=== PATIENT | male | born 1970 | race Caucasian/White ===

== ENCOUNTER → 2016-07-23 | Outpatient (CLI) | payer MEDICARE, OTHER ==
[2016-07-23 10:29] LABS: ALT 18 U/L (21-72); AST 9 U/L (17-59); Alkaline Phosphatase 79 U/L (38-126); Anion Gap 9 mmol/L; Blood Urea Nitrogen 10 mg/dL (9-20); Calcium 8.7 mg/dL (8.4-10.2); Carbon Dioxide 29 mmol/L (22-30); Chloride 106 mmol/L (98-107); Cholesterol 125 mg/dL (<200); Glucose 84 mg/dL (74-99); HDL Cholesterol 32 mg/dL (40-60); Non-African American GFR(MDRD) >60 (>60 ml/min/1.73 sqM); Potassium 4.4 mmol/L (3.5-5.1); Sodium 144 mmol/L (137-145); Total Bilirubin 0.4 mg/dL (0.2-1.3); Total Protein 6.6 g/dL (6.3-8.2); Triglycerides 205 mg/dL (<150)
== END | disposition home or self-care (01) ==
LOC: LABWHC1 09:37
PROVIDERS: ATTEND Internal Medicine Interventional Cardiology
DX: E78.2 Mixed hyperlipidemia (principal)
CPT/HCPCS: 36415; 80053; 80061

== ENCOUNTER 2016-10-04 20:41 | Emergency (ER) | payer MEDICARE, OTHER ==
[2016-10-04] MEDS ORDERED: IBUPROFEN 600 MG TAB PO STA (22:20)
[2016-10-04] MEDS ORDERED: SODIUM CHLORIDE 0.9% 1,000 ML IV STA (22:20)
[2016-10-04] MEDS ORDERED: ACETAMINOPHEN TAB 500 MG TAB PO STA (22:20)
--- NOTE | 2016-10-04 22:22 | ED ---
General Adult HPI - General Chief complaint: Fever Stated complaint: BODY ACHES Time Seen by Provider: 10/04/16 22:14 Source: patient, RN notes reviewed Mode of arrival: wheelchair Limitations: no limitations - History of Present Illness Initial comments: Patient 46-year-old male who presents emergency room today with chief complaint of increased bodyaches and fever over the last 4 days. Patient does admit to symptoms starting with bodyaches. States that he's felt dizzy lightheaded. States appetites been decreased. States his FAMILY doctor started on antibiotics. States she's not felt any better. States not had any Tylenol Motrin. Patient denies cough congestion. Denies any sputum production. Does admit to some rhinorrhea. Denies any other complaints currently. Review of systems - Related Data Home Medications Medication Instructions Recorded Confirmed Divalproex [Depakote] 500 mg PO BID 01/22/14 05/10/16 Hydrocodone/Acetaminophen 1 tab PO BID PRN 05/10/16 05/10/16 [Hydrocodon-Acetaminophn 10-325] Morphine Sulfate [Morphine Sulfate 30 mg PO BID 05/10/16 05/10/16 ER] Previous Rx's Medication Instructions Recorded Aspirin 325 mg PO DAILY #30 tab 05/13/16 Atorvastatin [Lipitor] 80 mg PO HS #30 tab 05/13/16 Lisinopril [Zestril] 10 mg PO BID #60 tab 05/13/16 Metoprolol Tartrate [Lopressor] 25 mg PO BID #60 tab 05/13/16 Nicotine 21Mg/24Hr Patch [Habitrol] 1 patch TRANSDERM DAILY #30 patch 05/13/16 Nitroglycerin Sl Tabs [Nitrostat] 0.4 mg SUBLINGUAL Q5M PRN #25 tab 05/13/16 Prasugrel [Effient] 10 mg PO DAILY #30 tab 05/13/16 Allergies Allergy/AdvReac Type Severity Reaction Status Date / Time cephalexin monohydrate AdvReac Vomiting Verified 05/10/16 09:01 [From Keflex] Review of Systems ROS Statement: Those systems with pertinent positive or pertinent negative responses have been documented in the HPI. ROS Other: All systems not noted in ROS Statement are negative. Past Medical History Past Medical History: Hypertension, Myocardial Infarction ([place]) Additional Past Medical History / Comment(s): chronic back pain Last Myocardial Infarction Date:: 05/10/16 History of Any Multi-Drug Resistant Organisms: MRSA Date of last positivie culture/infection: 2011 MDRO Source:: eye Additional Past Surgical History / Comment(s): back surgery Past Anesthesia/Blood Transfusion Reactions: No Reported Reaction Past Psychological History: Bipolar Smoking Status: Current every day smoker Past Alcohol Use History: None Reported Past Drug Use History: None Reported - Past Family History Mother Family Medical History: Hypertension Brother(s) Family Medical History: Myocardial Infarction ([place]) Additional Family Medical History / Comment(s): from [place] at age 38 General Exam - General Exam Comments Initial Comments: General: The patient is awake and alert, in no distress, and does not appear acutely ill. Generalized malaise Eye: Pupils are equal, round and reactive to light, extra-ocular movements are intact. No nystagmus. There is normal conjunctiva bilaterally. No signs of icterus. Ears, nose, mouth and throat: There are moist mucous membranes and no oral lesions. Neck: The neck is supple, there is no tenderness or JVD. Cardiovascular: There is a regular rate and rhythm. No murmur, rub or gallop is appreciated. Respiratory: Lungs are clear to auscultation, respirations are non-labored, breath sounds are equal. No wheezes, stridor, rales, or rhonchi. Gastrointestinal: Soft, non-distended, non-tender abdomen without masses or organomegaly noted. There is no rebound or guarding present. No CVA tenderness. Bowel sounds are unremarkable. Musculoskeletal: Normal ROM, no tenderness. Strength 5/5. Sensation intact. Pulses equal bilaterally 2+. Neurological: A&O x 3. CN II-XII intact, There are no obvious motor or sensory deficits. Coordination appears grossly intact. Speech is normal. Skin: Skin is warm and dry and no rashes or lesions are noted. Psychiatric: Cooperative, appropriate mood & affect, normal judgment. Limitations: no limitations Course Vital Signs 10/04/16 21:04 Temperature 102.1 F H Pulse Rate 113 H Respiratory 18 Rate Blood Pressure 120/76 O2 Sat by Pulse 97 Oximetry Medical Decision Making - Medical Decision Making Patient reexamined at this time shows no signs of distress. States feeling Better after Tylenol/ibuprofen here the emergency room. Patient's chest x-ray reviewed no evidence of pneumonia. Patient informed to be positive. Patient advised to continue Tylenol Motrin at home. Advised to follow-up the family doctor over the next 2 days or return here to the emergency room if any symptoms increase worsen. - Lab Data Result diagrams: 10/04/16 23:08 10/04/16 23:08 Lab Results 10/04/16 10/04/16 10/04/16 Range/Units 22:42 23:08 23:08 WBC 7.1 (3.8-10.6) k/uL RBC 4.88 (4.30-5.90) m/uL Hgb 15.7 (13.0-17.5) gm/dL Hct 46.1 (39.0-53.0) % MCV 94.6 (80.0-100.0) fL MCH 32.3 (25.0-35.0) pg MCHC 34.1 (31.0-37.0) g/dL RDW 13.8 (11.5-15.5) % Plt Count 129 L (150-450) k/uL Neutrophils % 84 % Lymphocytes % 11 % Monocytes % 2 % Eosinophils % 0 % Basophils % 0 % Neutrophils # 6.0 (1.3-7.7) k/uL Lymphocytes # 0.8 L (1.0-4.8) k/uL Monocytes # 0.2 (0-1.0) k/uL Eosinophils # 0.0 (0-0.7) k/uL Basophils # 0.0 (0-0.2) k/uL Sodium 135 L (137-145) mmol/L Potassium 4.3 (3.5-5.1) mmol/L Chloride 99 (98-107) mmol/L Carbon Dioxide 27 (22-30) mmol/L Anion Gap 9 mmol/L BUN 15 (9-20) mg/dL Creatinine 0.80 (0.66-1.25) mg/dL Est GFR (MDRD) Af Amer >60 (>60 ml/min/1.73 sqM) Est GFR (MDRD) Non-Af >60 (>60 ml/min/1.73 sqM) Glucose 98 (74-99) mg/dL Calcium 8.4 (8.4-10.2) mg/dL Total Bilirubin 0.9 (0.2-1.3) mg/dL AST 33 (17-59) U/L ALT 30 (21-72) U/L Alkaline Phosphatase 61 (38-126) U/L Total Protein 6.5 (6.3-8.2) g/dL Albumin 3.2 L (3.5-5.0) g/dL Influenza Type A RNA Not Detected (Not Detectd) Influenza Type B (PCR) Detected H (Not Detectd) Disposition Clinical Impression: Influenza B Disposition: HOME SELF-CARE Condition: Good Instructions: Influenza (ED) Additional Instructions: Please continue Tylenol/ibuprofen for fever and body aches. Please increase oral fluids as discussed. Please follow-up family doctor over the next 2 days or return here to the emergency room if any symptoms increase or worsen or for any other concerns. Time of Disposition: 00:03
[2016-10-04 23:17] LABS: Basophils % (A) 0 %; Eosinophils % (A) 0 %; HCT 46.1 % (39.0-53.0); HDW 2.69; HGB 15.7 gm/dL (13.0-17.5); Luc # (Auto) 0.11; Luc % (Auto) 2; Lymphocytes # (A) 0.8 k/uL (1.0-4.8); Lymphocytes % (A) 11 %; MCH 32.3 pg (25.0-35.0); MCHC 34.1 g/dL (31.0-37.0); MCV 94.6 fL (80.0-100.0); Mean Platelet Volume 8.7; Monocytes # (A) 0.2 k/uL (0-1.0); Monocytes % (A) 2 %; Neutrophils % (A) 84 %; RBC 4.88 m/uL (4.30-5.90); RDW 13.8 % (11.5-15.5); WBC 7.1 k/uL (3.8-10.6); WBC (Perox) 7.48
[2016-10-04 23:26] LABS: ALT 30 U/L (21-72); AST 33 U/L (17-59); Alkaline Phosphatase 61 U/L (38-126); Anion Gap 9 mmol/L; Blood Urea Nitrogen 15 mg/dL (9-20); Calcium 8.4 mg/dL (8.4-10.2); Carbon Dioxide 27 mmol/L (22-30); Chloride 99 mmol/L (98-107); Glucose 98 mg/dL (74-99); Non-African American GFR(MDRD) >60 (>60 ml/min/1.73 sqM); Potassium 4.3 mmol/L (3.5-5.1); Sodium 135 mmol/L (137-145); Total Bilirubin 0.9 mg/dL (0.2-1.3); Total Protein 6.5 g/dL (6.3-8.2)
--- NOTE | 2016-10-04 23:44 | XR ---
EXAM: XR Chest, 2 Views. CLINICAL HISTORY: Reason: fever TECHNIQUE: Frontal and lateral views of the chest. COMPARISON: None FINDINGS: Hardware: None. Lungs/pleura: Density projected at the midline posterior upper thorax. Streaky opacities at the left lung base likely represent atelectasis. No focal consolidation. No pleural effusion or pneumothorax. Heart/mediastinum: Normal. No cardiomegaly. Soft tissues: Unremarkable. Bones: Degenerative changes of the acromioclavicular joints No acute fracture. Upper abdomen: Tiny densities projected over the medial left clavicle. IMPRESSION: 1. Mild left basilar atelectasis. No focal consolidation. 2. Density projected at the midline in the upper posterior thorax. Recommend correlation with retained metallic foreign body versus swallowed tooth. Other smaller hyperdensities projected over the medial left clavicle, nonspecific.
[2016-10-05 00:09] VITALS: BP 109/73; PULSE 117; RESP 16; TEMP 98.9
== END 2016-10-05 00:13 | disposition home or self-care (01) ==
LOC: EC 20:41
DX: J10.1 Influenza due to other identified influenza virus with other respiratory manifestations (principal); G89.29 Other chronic pain; F31.9 Bipolar disorder, unspecified; F17.200 Nicotine dependence, unspecified, uncomplicated; Z79.891 Long term (current) use of opiate analgesic; Z79.899 Other long term (current) drug therapy; Z88.1 Allergy status to other antibiotic agents; Z86.14 Personal history of Methicillin resistant Staphylococcus aureus infection
CPT/HCPCS: 36415; 71020; 80053; 85025; 87040; 87077; 87186; 87502; 96360; 99283

== ENCOUNTER 2018-12-07 13:00 | Emergency (ER) | payer MEDICARE, OTHER ==
[2018-12-07 13:06] VITALS: RESP 18
--- NOTE | 2018-12-07 13:32 | ED ---
General Adult HPI <Ted Banerjee - Last Filed: 12/07/18 14:09> - General Source: patient, RN notes reviewed Mode of arrival: ambulatory Limitations: no limitations <Levar Ward - Last Filed: 12/08/18 10:07> - General Chief complaint: Fall Stated complaint: fell down steps Time Seen by Provider: 12/07/18 13:15 - History of Present Illness Initial comments: 48-year-old male presents to the emergency department for a chief complaint of fall. Patient states that approximately an hour before arrival he accidentally tripped and fell down about 12 stairs. Does admit that he hit the left side of his head. No loss of consciousness. No blood thinners. No significant headache. Patients main complaint is right knee pain. States he cannot bear weight on it or move it. Also complaining of low back pain. States he has a "colleen" in his back. Denies any upper back or chest pain. Denies any abdominal pain. Patient has no other complaints at this time including shortness of breath, chest pain, abdominal pain, nausea or vomiting, headache, or visual changes. (Levar Ward) - Related Data Home Medications Medication Instructions Recorded Confirmed Divalproex [Depakote] 500 mg PO BID 01/22/14 12/07/18 Morphine Sulfate [Morphine Sulfate 30 mg PO BID 05/10/16 12/07/18 ER] Carvedilol [Coreg] 3.125 mg PO DAILY 12/07/18 12/07/18 Citalopram Hydrobromide [CeleXA] 10 mg PO DAILY 12/07/18 12/07/18 HYDROcodone/APAP 10-325MG [[place] 1 tab PO TID 12/07/18 12/07/18 10-325] Ondansetron HCl [Zofran] 4 mg PO Q4H PRN 12/07/18 12/07/18 Pregabalin [Lyrica] 75 mg PO BID 12/07/18 12/07/18 amLODIPine [Norvasc] 5 mg PO DAILY 12/07/18 12/07/18 Previous Rx's Medication Instructions Recorded Aspirin 325 mg PO DAILY #30 tab 05/13/16 Atorvastatin [Lipitor] 80 mg PO HS #30 tab 05/13/16 Lisinopril [Zestril] 10 mg PO BID #60 tab 05/13/16 Metoprolol Tartrate [Lopressor] 25 mg PO BID #60 tab 05/13/16 Nitroglycerin Sl Tabs [Nitrostat] 0.4 mg SUBLINGUAL Q5M PRN #25 tab 05/13/16 Prasugrel [Effient] 10 mg PO DAILY #30 tab 05/13/16 Allergies Allergy/AdvReac Type Severity Reaction Status Date / Time cephalexin monohydrate AdvReac Vomiting Verified 12/07/18 13:23 [From Keflex] Review of Systems ROS Other: All systems not noted in ROS Statement are negative. <Ted Banerjee - Last Filed: 12/07/18 14:09> ROS Other: All systems not noted in ROS Statement are negative. <Levar Ward - Last Filed: 12/08/18 10:07> ROS Statement: Those systems with pertinent positive or pertinent negative responses have been documented in the HPI. Past Medical History Past Medical History: Hypertension, Myocardial Infarction ([place]) Additional Past Medical History / Comment(s): chronic back pain Last Myocardial Infarction Date:: 05/10/16 History of Any Multi-Drug Resistant Organisms: MRSA Date of last positivie culture/infection: 2011 MDRO Source:: eye Past Surgical History: Heart Catheterization With Stent Additional Past Surgical History / Comment(s): back surgery Past Anesthesia/Blood Transfusion Reactions: No Reported Reaction Past Psychological History: Bipolar Smoking Status: Current every day smoker Past Alcohol Use History: None Reported Past Drug Use History: Marijuana - Past Family History Mother Family Medical History: Hypertension Brother(s) Family Medical History: Myocardial Infarction ([place]) Additional Family Medical History / Comment(s): from [place] at age 38 <Levar Ward - Last Filed: 12/08/18 10:07> General Exam Limitations: no limitations General appearance: alert, in no apparent distress Head exam: Present: atraumatic, normocephalic, normal inspection Eye exam: Present: normal appearance, PERRL, EOMI. Absent: scleral icterus, conjunctival injection, periorbital swelling, periorbital tenderness ENT exam: Present: normal exam, normal oropharynx, mucous membranes moist, TM's normal bilaterally, normal external ear exam Neck exam: Present: normal inspection, full ROM. Absent: tenderness, meningismus, lymphadenopathy Respiratory exam: Present: normal lung sounds bilaterally. Absent: respiratory distress, wheezes, rales, rhonchi, stridor, chest wall tenderness, other (no ecchymosis) Cardiovascular Exam: Present: regular rate, normal rhythm, normal heart sounds. Absent: systolic murmur, diastolic murmur, rubs, gallop, clicks, other GI/Abdominal exam: Present: soft, normal bowel sounds. Absent: distended, tenderness, guarding, rebound, rigid, other (no ecchymosis) Extremities exam: Present: tenderness (tenderness to the right knee), normal capillary refill (cap refill < 2 seconds, dp pulse 2+), joint swelling (mild superior right knee edema). Absent: full ROM (unable to bend right knee) Back exam: Present: vertebral tenderness (lumbar spine generalized tenderness). Absent: CVA tenderness (R), CVA tenderness (L) Neurological exam: Present: alert, oriented X3, CN II-XII intact, other (GCS 15) Expanded Patient oriented to: Present: person, place, time Speech: Present: fluid speech Cranial nerves: EOM's Intact: Normal, Gag Reflex: Normal, Tongue Deviation: Normal, Nystagmus: Normal Cerebellar function: Finger to Nose: Normal Upper motor neuron: Pronator Drift: Normal Sensory exam: Upper Extremity Light Touch: Normal, Upper Extremity Pin Prick: Normal, Lower Extremity Light Touch: Normal, Lower Extremity Pin Prick: Normal Motor strength exam: RUE: 5, LUE: 5, RLE: 5 (knee pain), LLE: 5 Eye Response: (4) open spontaneously Motor Response: (6) obeys commands Verbal Response: (5) oriented Nga Total: 15 Psychiatric exam: Present: normal affect, normal mood <Levar Ward - Last Filed: 12/08/18 10:07> Course <Ted Banerjee - Last Filed: 12/07/18 14:09> <Levar Ward P - Last Filed: 12/08/18 10:07> Vital Signs 12/07/18 12/07/18 12/07/18 13:03 14:04 14:26 Temperature 98.6 F 99.7 F H 98.9 F Pulse Rate 94 77 73 Respiratory 18 18 18 Rate Blood Pressure 108/68 110/72 107/84 O2 Sat by Pulse 94 L 93 L 98 Oximetry - Reevaluation(s) Reevaluation #1: 12/07/18 14:09 PA supervision: I proceeded [id number] evaluation the patient he did trip and fall down approximately 12 stairs prior to arrival. He denies any overt headache at this time though a CAT scan there was evidence of epidural hematoma on the left with evidence of subarachnoid bleed. Patient will be transferred to [facility] the patient is in agreement with this Dr. Wilson was notified at [facility] and agrees except the patient transfer. This is patient's have other imaging and will be done prior to transfer including pelvis x-ray and right knee as he does have right knee pain. (Ted Banerjee) Reevaluation #2: 12/07/18 14:27 Reevaluated, patient still well appearing, in no neurologic deficits. Alert and oriented 3. Resting comfortably. Head of bed at 30. (Levar Ward) Medical Decision Making - Lab Data Result diagrams: 12/07/18 14:11 12/07/18 14:11 <Levar Ward P - Last Filed: 12/08/18 10:07> - Medical Decision Making 48-year-old male presents for fall down 12 stairs approximately one hour prior to arrival. This was a trip and fall. Patient did hit the left side of his head. Patient also complaining of right knee pain which seems to be his biggest complaint. Patient has some lumbar pain as well. No abdominal pain or upper back pain. No chest pain. Exam does show some edema noted of the right knee with minimal range of motion. Neurovascular status is intact in the right lower extremity. No neurologic deficits. CT brain shows left-sided acute intracranial hemorrhage favoring subarachnoid hemorrhage with extra-axial hemorrhage favoring small to tiny epidural hemorrhage vs subdural. Head was up to 30 degrees, blood pressure stable. Patient alert and oriented at this time. Patient on aspirin, no other blood thinners. X-ray of the right knee shows no acute fracture or dislocation. There is moderate to large joint effusion noted. X-ray of the pelvis shows no acute fracture or dislocation. X-ray of the chest shows new left basilar opacity and slight left hemithorax volume loss. Suspicious for atelectasis and pneumonia. Patient did develop a low-grade temperature of 99.7. Started on Rocephin. Dr Wilson did accept transfer. Patient will be transferred for neuro surgery consult. (Levar Ward) - Lab Data Lab Results 12/07/18 12/07/18 12/07/18 Range/Units 14:11 14:11 14:11 WBC 10.3 (3.8-10.6) k/uL RBC 4.92 (4.30-5.90) m/uL Hgb 15.7 (13.0-17.5) gm/dL Hct 47.3 (39.0-53.0) % MCV 96.2 (80.0-100.0) fL MCH 31.9 (25.0-35.0) pg MCHC 33.2 (31.0-37.0) g/dL RDW 14.2 (11.5-15.5) % Plt Count 169 (150-450) k/uL Neutrophils % 80 % Lymphocytes % 14 % Monocytes % 5 % Eosinophils % 1 % Basophils % 0 % Neutrophils # 8.2 H (1.3-7.7) k/uL Lymphocytes # 1.5 (1.0-4.8) k/uL Monocytes # 0.5 (0-1.0) k/uL Eosinophils # 0.1 (0-0.7) k/uL Basophils # 0.0 (0-0.2) k/uL PT 10.1 (9.0-12.0) sec INR 0.9 (<1.2) APTT 26.7 (22.0-30.0) sec Sodium 137 (137-145) mmol/L Potassium 4.5 (3.5-5.1) mmol/L Chloride 103 (98-107) mmol/L Carbon Dioxide 28 (22-30) mmol/L Anion Gap 6 mmol/L BUN 7 L (9-20) mg/dL Creatinine 0.76 (0.66-1.25) mg/dL Est GFR (CKD-EPI)AfAm >90 (>60 ml/min/1.73 sqM) Est GFR (CKD-EPI)NonAf >90 (>60 ml/min/1.73 sqM) Glucose 116 H (74-99) mg/dL Calcium 8.4 (8.4-10.2) mg/dL Total Bilirubin 0.6 (0.2-1.3) mg/dL AST 16 L (17-59) U/L ALT 8 L (21-72) U/L Alkaline Phosphatase 60 (38-126) U/L Total Protein 6.0 L (6.3-8.2) g/dL Albumin 3.3 L (3.5-5.0) g/dL Disposition <Ted Banerjee - Last Filed: 12/07/18 14:09> Is patient prescribed a controlled substance at d/c from ED?: No Time of Disposition: 14:24 - Out of Hospital Transfer - Req. Specs Out of Hospital Transfer - Requested Specifics: Other Emergency Center ([facility]) <Levar Ward - Last Filed: 12/08/18 10:07> Clinical Impression: Intracranial hemorrhage following injury, Knee pain, Low back pain, Suprapatellar effusion of knee Disposition: OTHER INSTITUTION NOT DEFINED Condition: Serious Referrals: Sha Ocampo MD [Primary Care Provider] - 1-2 days
--- NOTE | 2018-12-07 13:59 | CT ---
EXAMINATION TYPE: CT brain niuknjine rasheed con DATE OF EXAM: 12/07/2018 COMPARISON: NONE HISTORY: Fell down stairs with headache and neck pain. CT DLP: 1344.4 mGycm. Automated Exposure Control for Dose Reduction was Utilized. TECHNIQUE: CT scan of the head and cervical spine are performed without contrast. FINDINGS: There is small left frontal temporal extra-axial fluid collection measuring up to 4 mm in thickness axial image 27. There is small area of adjacent subarachnoid hemorrhage axial image 29 sharonda ling sulcus. Adjacent calvarium is intact. No midline shift is seen. The ventricles and sulci are wit hin normal limits in size. The globes are intact and the visualized sinuses are clear. Soft tissue d ensity bilateral external auditory canals canals, left greater than right, is felt to reflect cerumen . Cervical spine is visualized in its entirety from C1 through upper thoracic levels and demonstrates s atisfactory alignment without evidence of acute fracture or dislocation. Prevertebral soft tissue ap pears within normal limits. The C1-C2 articulation is within normal limits on the coronal images. V ertebral body heights and disc space heights are maintained. Posterior spur disc complex effaces ante rior thecal sac at C5-C6 level on sagittal image 42 and axial image 54. Axial images show uncovertebr al facet degenerative changes bilaterally at C3-C4 level causing mild to moderate bilateral neural fo raminal narrowing. Visualized lung apices are clear IMPRESSION: 1. There is no acute fracture or dislocation evident in the cervical spine. 2. Left-sided acute intracranial hemorrhage favoring subarachnoid hemorrhage with a extra-axial hemor rhage favoring small to tiny epidural hemorrhage given history of trauma over subdural hemorrhage. No midline shift. No hydrocephalus. Critical results of acute intracranial hemorrhage communicated to ordering emergency care physician charla ssistant via telephone at time of dictation.
--- NOTE | 2018-12-07 14:00 | XR ---
EXAMINATION TYPE: XR pelvis AP view DATE OF EXAM: 12/07/2018 CLINICAL HISTORY: Fall injury with pelvic pain TECHNIQUE: A single AP view of the pelvis is obtained. COMPARISON: None. FINDINGS: Exam slightly suboptimal as performed in outlet view. Lucency from rectal fecal material o verlies pubic symphysis. There is no acute fracture/dislocation clearly evident in the pelvis. The h ip and sacroiliac joints appear symmetric and unremarkable. There is partial visualization of surgic al change in the lumbar spine and stimulator device overlying the left lower quadrant . IMPRESSION: There is no acute fracture or dislocation in the pelvis.
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
--- NOTE | 2018-12-07 14:01 | XR ---
EXAMINATION TYPE: XR knee 4V RT DATE OF EXAM: 12/07/2018 CLINICAL HISTORY: Fall injury with pain. TECHNIQUE: Three views of the right knee are obtained. A fourth sunrise view was acquired. COMPARISON: None. FINDINGS: There is no acute fracture/dislocation evident in right knee. Mild tricompartment joint sp dylan loss is seen. Increased density suprapatellar bursa is consistent with moderate to large joint ef fusion. Patellar articulation is within normal limits on sunrise view. IMPRESSION: There is no acute fracture or dislocation in the right knee.
--- NOTE | 2018-12-07 14:03 | XR ---
EXAMINATION TYPE: XR lumbar spine 2 or 3V DATE OF EXAM: 12/07/2018 CLINICAL HISTORY: Pain after falling down 12 steps today TECHNIQUE: A double and lateral images of the lumbar spine are obtained. COMPARISON: 08/27/2012 FINDINGS: There is chronic malalignment with grade 1 anterolisthesis of L3 on L4, less pronounced demar n on the prior exam and of L5 on S1, similar to the prior exam. No new vertebral body height loss is seen. Postsurgical changes present from L4 through S1. Nerve root stimulator is noted. Multilevel fac et arthropathy is seen. Heterotopic ossification surrounds the postsurgical sites with surgical absen ce of the lower lumbar spine posterior elements. Visualized portions of the surrounding ribs are inta ct. IMPRESSION: Postsurgical and degenerative changes of the lumbar spine. No new vertebral body height l oss. Chronic malalignment.
[2018-12-07] MEDS ORDERED: LEVOFLOXACIN 500MG-D5W PMX 500 MG in DEXTROSE/WATER 1 100ML.BAG IVPB STA (14:17)
[2018-12-07] MEDS ORDERED: cefTRIAXone IN SWFI 1,000 MG/10 ML SYRINGE IVP STA (14:20)
[2018-12-07 14:29] VITALS: BP 107/84; PULSE 73; TEMP 98.9
[2018-12-07 14:39] LABS: Basophils % (A) 0 %; Eosinophils # (A) 0.1 k/uL (0-0.7); Eosinophils % (A) 1 %; HCT 47.3 % (39.0-53.0); HGB 15.7 gm/dL (13.0-17.5); Lymphocytes # (A) 1.5 k/uL (1.0-4.8); Lymphocytes % (A) 14 %; MCH 31.9 pg (25.0-35.0); MCHC 33.2 g/dL (31.0-37.0); MCV 96.2 fL (80.0-100.0); Mean Platelet Volume 8.1; Monocytes # (A) 0.5 k/uL (0-1.0); Monocytes % (A) 5 %; Neutrophils # (A) 8.2 k/uL (1.3-7.7); Neutrophils % (A) 80 %; Platelet Count 169 k/uL (150-450); RBC 4.92 m/uL (4.30-5.90); RDW 14.2 % (11.5-15.5); WBC 10.3 k/uL (3.8-10.6)
[2018-12-07 14:46] LABS: INR 0.9 (<1.2); Partial Thromboplastin Time 26.7 sec (22.0-30.0); Prothrombin Time 10.1 sec (9.0-12.0)
[2018-12-07 14:55] LABS: ALT 8 U/L (21-72); AST 16 U/L (17-59); Albumin 3.3 g/dL (3.5-5.0); Alkaline Phosphatase 60 U/L (38-126); Anion Gap 6 mmol/L; Blood Urea Nitrogen 7 mg/dL (9-20); Calcium 8.4 mg/dL (8.4-10.2); Carbon Dioxide 28 mmol/L (22-30); Chloride 103 mmol/L (98-107); Glucose 116 mg/dL (74-99); Potassium 4.5 mmol/L (3.5-5.1); Sodium 137 mmol/L (137-145); Total Bilirubin 0.6 mg/dL (0.2-1.3)
== END 2018-12-07 14:55 | disposition other institution (70) ==
LOC: EC 13:00
DX: S06.300A Unspecified focal traumatic brain injury without loss of consciousness, initial encounter (principal); M25.461 Effusion, right knee; M54.5 Low back pain; I10 Essential (primary) hypertension; I25.2 Old myocardial infarction; F31.9 Bipolar disorder, unspecified; F17.200 Nicotine dependence, unspecified, uncomplicated; Z79.899 Other long term (current) drug therapy; Z79.02 Long term (current) use of antithrombotics/antiplatelets; Z88.1 Allergy status to other antibiotic agents; Z95.5 Presence of coronary angioplasty implant and graft; W10.9XXA Fall (on) (from) unspecified stairs and steps, initial encounter
CPT/HCPCS: 36415; 80053; 85025; 85610; 85730; 87040; 72100; 72170; 73564; 71046; 72125; 70450; 99285; J0696

== ENCOUNTER → 2019-01-30 | Outpatient (CLI) | payer MEDICARE, OTHER ==
--- NOTE | 2019-01-30 09:32 | CT ---
EXAMINATION TYPE: CT lumbar spine wo con DATE OF EXAM: 01/30/2019 COMPARISON: 02/25/2016 HISTORY: 48-year-old male Low back pain TECHNIQUE: Contiguous axial scanning of the lower spine without IV contrast. Coronal and sagittal rec onstructions performed. CT DLP: 987 mGycm Automated exposure control for dose reduction was used. FINDINGS: Ectasia of the aortic bifurcation extending into the proximal right common iliac artery measures up t o 2.5 cm on the right versus 2.1 cm in 2016. Large right common iliac artery aneurysm measures 3.3 cm versus 2.4 cm, previously. Left common iliac artery aneurysm measures 2.4 cm versus 2.2 cm, previously Left internal iliac artery aneurysm measures 1.7 cm versus 1.5 cm, previously Right internal iliac artery aneurysm seems to be new at 1.1 cm. Sigmoid diverticulosis. Large amount of stool in the rectum. A left-sided posterior generator device is present with stimulator array leads extending up beyond th e [id number] entering the L1-L2 interlaminar space. Postsurgical changes of L4-S1 posterior fusion. Mature interbody ankylosis across L5-S1 is unchanged. Bilateral L3 pars interarticularis defects are redemonstrated. There is new heterogeneity of both the L3 and L4 vertebral bodies with fracture lucencies visualized. Mild superior endplate deformity of L3 with additional fracture along the anterior superior endplate corner. No retropulsion into the spinal canal. Additional fracture seen extending across the superior endplate of L4. Alignment is grossly maintained. Mild paravertebral soft tissue thickening at both of these levels. IMPRESSION: 1. PRIOR L4-S1 POSTERIOR FUSION AND CHRONIC BILATERAL L3 PARS INTERARTICULARIS DEFECTS ABOVE THE FUSI ON. 2. NEW SUPERIOR ENDPLATE FRACTURE OF L3 WITH MINIMAL ENDPLATE DEPRESSION. ADDITIONAL NEW FRACTURE INV OLVING THE SUPERIOR ASPECT OF THE L4 VERTEBRAL BODY. NO RETROPULSION INTO THE SPINAL CANAL. 3. GIVEN PATCHY SCLEROSIS WITHIN BOTH OF THESE VERTEBRAL BODIES, THESE MAY REPRESENT MORE SUBACUTE FR ACTURES. CONSIDER WHOLE-BODY BONE SCAN TO SURVEY THE REMAINDER OF THE SKELETON TO EXCLUDE THE POSSIBI LITY OF PATHOLOGIC FRACTURES. 4. NOTE THE SIGNIFICANT FINDINGS OF COMMON ILIAC ARTERY ANEURYSMS. ON THE RIGHT, THIS HAS INCREASED T O 3.3 CM FROM 2.4 CM IN 2016. ADDITIONAL ILIAC ARTERY ANEURYSM MEASUREMENTS ABOVE. VASCULAR SURGER Y REFERRAL RECOMMENDED.
== END | disposition home or self-care (01) ==
LOC: EEVIPCON 01-27 16:20 → RADCTMAIN 08:07
PROVIDERS: ATTEND Psychiatry & Neurology Neurology
DX: M48.53XA Collapsed vertebra, not elsewhere classified, cervicothoracic region, initial encounter for fracture (principal); M43.06 Spondylolysis, lumbar region; G95.89 Other specified diseases of spinal cord; Z88.1 Allergy status to other antibiotic agents
CPT/HCPCS: 72131

== ENCOUNTER → 2019-02-13 | Outpatient (CLI) | payer MEDICARE, OTHER ==
[2019-02-13 17:19] LABS: African American GFR (CKD) 116.6 (60.0-200.0); Albumin 3.8 g/dL (3.80-4.90); Albumin/Globulin Ratio 1.65 (1.60-3.17); Anion Gap 4.7 mmol/L (4.00-12.00); BUN/Creat Ratio 8.89 Ratio (12.00-20.00); Calcium 8.6 mg/dL (8.7-10.3); Carbon Dioxide 29.3 mmol/L (21.6-31.8); Chol/HDL Ratio 3.68; Globulin 2.3 g/dL (1.6-3.3); LDL Cholesterol,Calculated 56.6 mg/dL (0.0-131.0); Non-African American GFR(CKD) 100.6 (60.0-200.0); Potassium 5.1 mmol/L (3.5-5.5); Total Bilirubin 0.3 mg/dL (0.2-1.2); Total Protein 6.1 g/dL (6.2-8.2); VLDL Calculation 18.4 mg/dL (5.00-40.00)
== END | disposition home or self-care (01) ==
LOC: LABWHC1 08:22
PROVIDERS: ATTEND Internal Medicine Interventional Cardiology
DX: E78.2 Mixed hyperlipidemia (principal)
CPT/HCPCS: 36415; 80053; 80061

== ENCOUNTER → 2019-03-04 | Outpatient (CLI) | payer MEDICARE, OTHER ==
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
== END | disposition home or self-care (01) ==
LOC: RADCTMAIN 11:37
PROVIDERS: ATTEND Psychiatry & Neurology Neurology
DX: I62.00 Nontraumatic subdural hemorrhage, unspecified (principal); Z88.1 Allergy status to other antibiotic agents
CPT/HCPCS: 70496; Q9967

== ENCOUNTER → 2019-03-31 | Outpatient (CLI) | payer MEDICARE, OTHER ==
--- NOTE | 2019-03-31 10:35 | CT ---
EXAMINATION TYPE: CT angio abd aorta w/Runoff DATE OF EXAM: 03/31/2019 COMPARISON: HISTORY: Follow up Iliac aneurysm CT DLP: 1180.7 mGycm, Automated Exposure Control for Dose Reduction was Utilized. CONTRAST: CT scan of the abdomen and pelvis is performed with oral and with IV Contrast, patient injected with 125 mL of Isovue 370. FINDINGS: There are stimulator leads within the posterior lower spine canal causing some streak artif act. Coronary artery calcifications are present. The aorta shows atheromatous change. Descending aorta, celiac axis, superior mesenteric artery, renal arteries are patent, 2 renal arteries are noted on the left, smaller accessory renal artery is prese nt and more cephalad location. The common iliac arteries are patent. There is a bulbous appearance of the distal abdominal aorta at the level of the aortic bifurcation measuring approximately 2.6 cm, th e distal right common iliac artery measures approximately 3.2 cm in AP dimension. Left common iliac a rtery measures 19 mm. Internal iliac artery aneurysm on the left shows diameter of approximately 16 m m. External iliac arteries show normal caliber bilaterally, the common femoral arteries are patent, l eft common femoral artery shows diameter of 2.2 cm with eccentric plaque. Deep and superficial femora l arteries are patent. Popliteal arteries show no definite aneurysm, some mild ectasia is noted of th e left which measures approximately 9 mm focally. Trifurcation vasculature is patent on the left, opa cification of the vessels is seen at least to the level of the distal calf, posterior tibial arteries seen patent into the foot.. Peroneal and posterior tibial arteries are thought to be patent at least to the mid calf level. On the right the trifurcation vessels are thought to be patent proximally. Th ere is patency of the posterior tibial, peroneal arteries distally. Poor enhancement of the anterior tibial artery is seen at the mid calf level however in the right. LUNG BASES: No significant abnormality is appreciated. LIVER/GB: No significant abnormality is appreciated. PANCREAS: No significant abnormality is seen. SPLEEN: No significant abnormality is seen. ADRENALS: No significant abnormality is seen. KIDNEYS: No significant abnormality is seen. BOWEL: Retained fecal debris present within the rectum. PROSTATE/SEMINAL VESICLES: No gross abnormal ity seen. LYMPH NODES: No greater than 1cm abdominal or pelvic lymph nodes are appreciated. OSSEOUS STRUCTURES: Postop changes are noted to the lumbosacral spine. OTHER: Small injection granuloma suspected over the gluteal regions. IMPRESSION: Aneurysmal disease as described. Additional findings above.
== END | disposition home or self-care (01) ==
LOC: RADCTMAIN 07:17
PROVIDERS: ATTEND Surgery Vascular Surgery
DX: I72.3 Aneurysm of iliac artery (principal); I70.0 Atherosclerosis of aorta; I25.10 Atherosclerotic heart disease of native coronary artery without angina pectoris; Z98.890 Other specified postprocedural states
CPT/HCPCS: 75635; Q9967

== ENCOUNTER → 2019-04-03 | Outpatient (CLI) | payer MEDICARE, OTHER ==
[2019-04-03 15:12] LABS: HCT 51.1 % (39.0-53.0); HGB 17.1 gm/dL (13.0-17.5); MCH 31.6 pg (25.0-35.0); MCHC 33.4 g/dL (31.0-37.0); Mean Platelet Volume 7.6; Partial Thromboplastin Time 27.6 sec (22.0-30.0); Platelet Count 148 k/uL (150-450); Prothrombin Time 10.6 sec (9.0-12.0); RBC 5.41 m/uL (4.30-5.90); RDW 14.3 % (11.5-15.5); WBC 6.6 k/uL (3.8-10.6)
[2019-04-03 15:15] LABS: MCV 94.4 fL (80.0-100.0)
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
[2019-04-03 19:23] LABS: African American GFR (CKD) 102.7 (60.0-200.0); Albumin 3.6 g/dL (3.80-4.90); Albumin/Globulin Ratio 1.89 (1.60-3.17); Anion Gap 4.7 mmol/L (4.00-12.00); Calcium 8.8 mg/dL (8.7-10.3); Carbon Dioxide 30.3 mmol/L (21.6-31.8); Globulin 1.9 g/dL (1.6-3.3); Potassium 4.8 mmol/L (3.5-5.5); Total Bilirubin 0.3 mg/dL (0.2-1.2); Total Protein 5.5 g/dL (6.2-8.2)
== END | disposition home or self-care (01) ==
LOC: LABWHC1 14:15
PROVIDERS: ATTEND Neurological Surgery
DX: R91.8 Other nonspecific abnormal finding of lung field (principal); S32.009S Unspecified fracture of unspecified lumbar vertebra, sequela; Z96.89 Presence of other specified functional implants
CPT/HCPCS: 36415; 71046; 80053; 85027; 85610; 85730; 87070; 87086

== ENCOUNTER → 2020-01-21 | Outpatient (CLI) | payer MEDICARE, OTHER ==
--- NOTE | 2020-01-22 08:36 | CT ---
EXAMINATION TYPE: CT angio abd aorta w/Runoff DATE OF EXAM: 01/21/2020 COMPARISON: 03/31/2019 HISTORY: 49-year-old male aneurysm of common iliac, AAA TECHNIQUE: Contiguous axial scanning of the abdomen and pelvis without contrast. This is followed by post injection scan of the abdomen and pelvis with bilateral lower extremity runoff performed with IV Contrast, patient injected with 100 mL of Isovue 370. Coronal/sagittal MIP reconstructions performed . 3-D reconstructions generated on a dedicated independent workstation. CT DLP: 1898.6 mGycm Automated exposure control for dose reduction was used. FINDINGS: Heart normal size without pericardial effusion. RCA coronary artery calcifications are demonstrated. Dependent atelectasis in the visualized lower lungs with some mild emphysematous change. No pleural e ffusion. Tiny hiatal hernia. No focal liver lesion or biliary ductal dilatation. Gallbladder, adrenal glands, kidneys, spleen, pancreas show no gross abnormality by arterial phase im aging. No dilated small bowel, free fluid, or free air. No mesenteric or retroperitoneal lymphadenopathy. Normal appendix. Mild to moderate stool in the right side of the colon. Sigmoid diverticulosis. There is some annular thickening at the rectosigmoid junction, referred to postcontrast axial image 67. This could represen t peristalsis. There is visualization to exclude neoplasm. Moderate circumferential bladder wall thickening. No abnormal fluid collection in the pelvis or pelvi c lymphadenopathy. Numerous soft tissue nodules some of which are calcified bilateral gluteal regions measuring up to 1. 4 cm likely relating to numerous injections. VASCULATURE: Aortic root borderline ectatic. 3.6 cm. Lower descending thoracic aorta normal at 2.1 cm. The celiac axis, SMA, renal arteries, and AUTUMN appear patent. Small left-sided accessory renal artery to the upper pole. Mild atherosclerotic calcifications within the infrarenal abdominal aorta and more mild to moderate w ithin the iliac arteries. Redemonstrated fusiform aneurysm of the aortic bifurcation up to 3.0 cm, unchanged. RIGHT: Proximal right common iliac artery borderline ectatic 1.6 cm. Then there is ballooning of the right common iliac artery prior to its bifurcation up to 3.4 cm versu s 3.2 cm, previously. Some ectasia of the right internal iliac artery up to 1.0 cm. Mild atherosclerotic calcifications scattered within the right external iliac artery which is normal caliber. Mild atherosclerotic calcifications common femoral artery. Some fusiform dilatation of the distal EDGER HAND 1.4 cm prior to the bifurcation which is patent. SFA and popliteal artery are patent. Trifurcation vessels are patent. Anterior tibial artery not seen beyond the mid leg level. The peroneal artery is seen beyond the ankle and may collateralize to the anterior tibial artery; 2 v essel runoff into the foot. LEFT: Atherosclerotic plaque mildly narrowing the origin of the left common iliac artery, unchanged. There is aneurysm of the distal common iliac artery up to 2.3 cm, unchanged. Moderate atherosclerotic narrowing at the origin of the tortuous internal iliac artery and a focal fu siform aneurysm of 1.7 cm, unchanged. There is some scarring along the left inguinal region likely related to prior catheterization. Possib le stent or other surgical change in this region at the level of the common femoral artery. The vesse l remains patent. Bifurcation is patent. Mild fusiform dilatation upper SFA up to 1.1 cm, unchanged. SFA is patent. Fusiform dilatation of the upper popliteal artery up to 1.0 cm versus 8 mm, previously. Popliteal artery and trifurcation are patent. Three-vessel runoff into the foot. BONES: Generator device posteriorly on the left lung the lower back. Spinal stimulator array extending up i nto the lower thoracic spinal canal. Post surgical changes of L4-S1 posterior fusion. Accelerated degenerative disease above at L3-L4. Cheryl ble to exclude disc herniation at this level. IMPRESSION: 1. SIGMOID DIVERTICULOSIS. THERE IS SOME ANNULAR THICKENING AT THE RECTOSIGMOID JUNCTION THAT COULD R EPRESENT PERISTALSIS OR UNDERLYING NEOPLASM. DIRECT VISUALIZATION CLINICALLY INDICATED. 2. MODERATE CIRCUMFERENTIAL BLADDER WALL THICKENING. CORRELATE FOR CHRONIC BLADDER WALL HYPERTROPHY V ERSUS CYSTITIS. 3. REDEMONSTRATED NUMEROUS SOFT TISSUE NODULES ALONG THE BILATERAL GLUTEAL REGIONS PROBABLY RELATED T O PRIOR INJECTIONS. CLINICALLY CORRELATE. 4. FUSIFORM ANEURYSM OF THE AORTIC BIFURCATION AT 3.0 CM, UNCHANGED. RIGHT: 5. FUSIFORM ANEURYSM OF THE RIGHT COMMON ILIAC ARTERY PRIOR TO ITS BIFURCATION UP TO 3.4 CM VERSUS 3. 2 CM, PREVIOUSLY. 6. SOME ECTASIA OF THE RIGHT INTERNAL ILIAC ARTERY UP TO 1.0 CM. 7. SLIGHT FUSIFORM DILATATION OF THE DISTAL EDGER HAND UP TO 1.4 CM PRIOR TO ITS BIFURCATION. 8. ANTERIOR TIBIAL ARTERY NOT SEEN BEYOND THE MID LEG LEVEL. THE PERONEAL ARTERY COLLATERALIZES TO [place]QUE PPLY THE DORSUM OF THE FOOT. TWO-VESSEL RUNOFF ON THIS SIDE. LEFT: 9. ANEURYSM OF THE DISTAL COMMON ILIAC ARTERY UP TO 2.3 CM, UNCHANGED. 10. SIMILAR MODERATE ATHEROSCLEROTIC NARROWING AT THE ORIGIN OF THE TORTUOUS INTERNAL ILIAC ARTERY WI TH FUSIFORM ANEURYSM OF 1.7 CM, UNCHANGED. 11. UNCHANGED MILD FUSIFORM DILATATION UPPER SFA AT 1.1 CM. FUSIFORM DILATATION OF THE UPPER POPLITEA L ARTERY AT 1.0 CM SLIGHTLY INCREASED FROM 8 MM, PREVIOUSLY. 12. THREE-VESSEL RUNOFF INTO THE FOOT.
== END | disposition home or self-care (01) ==
LOC: RADCTMAIN 07:40
PROVIDERS: ATTEND Surgery
DX: I77.819 Aortic ectasia, unspecified site (principal); N32.89 Other specified disorders of bladder; K57.30 Diverticulosis of large intestine without perforation or abscess without bleeding; I72.4 Aneurysm of artery of lower extremity; M79.9 Soft tissue disorder, unspecified; I72.3 Aneurysm of iliac artery
CPT/HCPCS: 75635; Q9967

== ENCOUNTER 2020-06-12 16:17 | Inpatient (IN) | payer MEDICARE, MEDICAID ==
[2020-06-12 17:48] LABS: Amphetamine Screen,Urine Detected (NotDetected); Barbiturate Screen,Urine Not Detected (NotDetected); Benzodiazepines Screen,Urine Detected (NotDetected); Cocaine Screen,Urine Not Detected (NotDetected); Methadone Screen, Urine Not Detected (NotDetected); Opiate Screen,Urine Detected (NotDetected); Oxycodone Screen, Urine Not Detected (NotDetected); Phencyclidine Screen,Urine Not Detected (NotDetected); Tricyclic Antidepressant,Urine Not Detected (NotDetected); Urn Cannabinoid Scrn Detected (NotDetected)
--- NOTE | 2020-06-12 20:48 | ED ---
Psych HPI - General Chief Complaint: Psychiatric Symptoms Stated Complaint: Mental Health Time Seen by Provider: 06/12/20 16:35 Source: patient, EMS - History of Present Illness Initial Comments: Patient is a 49-year-old male with past history of hypertension, [place], schizophrenia presents emergency Department with reported normal behavior. Patient states that he thought his mom was having a stroke so he called EMS. When EMS arrived the patient's mother was stating that the patient was having psychoses. He has been saying things like "he controls who lives or dies". Patient presents to the emergency department and reports 2 similar story of why EMS were at the house. He states he's been taking his medications as directed and does not feel that he needs them to be changed. He does make some comments about the evolution he reports to the nurse that his abnormal behavior is because of the staff in his urine getting out of control. He makes another comment to another nurse that he has a chip in his hand. Patient denies any suicidal or homicidal ideations. No other alleviating, precipitating or modifying factors - Related Data Home Medications Medication Instructions Recorded Confirmed Morphine Sulfate [Morphine Sulfate 30 mg PO BID 05/10/16 06/12/20 ER] HYDROcodone/APAP 10-325MG [[place] 1 tab PO TID PRN 12/07/18 06/12/20 10-325] Ondansetron HCl [Zofran] 4 mg PO Q4H PRN 12/07/18 06/12/20 Pregabalin [Lyrica] 75 mg PO BID 12/07/18 06/12/20 amLODIPine [Norvasc] 5 mg PO DAILY 12/07/18 06/12/20 carvediloL [Coreg] 3.125 mg PO DAILY 12/07/18 06/12/20 Citalopram Hydrobromide [CeleXA] 40 mg PO DAILY 06/12/20 06/12/20 Divalproex ER [Depakote ER] 500 mg PO BID 06/12/20 06/12/20 Paliperidone Palmitate [Invega 819 mg IM Q90D 06/12/20 06/12/20 Trinza] Previous Rx's Medication Instructions Recorded Atorvastatin [Lipitor] 80 mg PO HS #30 tab 05/13/16 Metoprolol Tartrate [Lopressor] 25 mg PO BID #60 tab 05/13/16 Nitroglycerin Sl Tabs [Nitrostat] 0.4 mg SUBLINGUAL Q5M PRN #25 tab 05/13/16 lisinopriL [Zestril] 10 mg PO BID #60 tab 05/13/16 Allergies Allergy/AdvReac Type Severity Reaction Status Date / Time cephalexin monohydrate AdvReac Vomiting Verified 06/12/20 18:07 [From Keflex] Review of Systems ROS Statement: Those systems with pertinent positive or pertinent negative responses have been documented in the HPI. ROS Other: All systems not noted in ROS Statement are negative. Past Medical History Past Medical History: Hypertension, Myocardial Infarction ([place]) Additional Past Medical History / Comment(s): chronic back pain Last Myocardial Infarction Date:: 05/10/16 History of Any Multi-Drug Resistant Organisms: MRSA Date of last positivie culture/infection: 2011 MDRO Source:: eye Past Surgical History: Heart Catheterization With Stent Additional Past Surgical History / Comment(s): back surgery Past Anesthesia/Blood Transfusion Reactions: No Reported Reaction Past Psychological History: Bipolar Past Alcohol Use History: None Reported Past Drug Use History: Marijuana - Past Family History Mother Family Medical History: Hypertension Brother(s) Family Medical History: Myocardial Infarction ([place]) Additional Family Medical History / Comment(s): from [place] at age 38 General Exam Limitations: no limitations General appearance: alert Head exam: Present: atraumatic, normocephalic, normal inspection Respiratory exam: Present: normal lung sounds bilaterally. Absent: respiratory distress, wheezes, rales, rhonchi, stridor Cardiovascular Exam: Present: regular rate, normal rhythm, normal heart sounds. Absent: systolic murmur, diastolic murmur, rubs, gallop, clicks GI/Abdominal exam: Present: soft, normal bowel sounds. Absent: distended, tenderness, guarding, rebound, rigid Neurological exam: Present: alert Psychiatric exam: Present: other (acute psychoses. tangential speech. Paranoid thoughts) Course Vital Signs 06/12/20 06/13/20 16:34 03:00 Temperature 98.3 F Pulse Rate 103 H 88 Respiratory 18 17 Rate Blood Pressure 124/90 123/79 O2 Sat by Pulse 97 98 Oximetry Medical Decision Making - Medical Decision Making Upon arrival patient is placed into room 8. Thorough history and physical exam is performed. Patient is currently awaiting EPS evaluation - Lab Data Result diagrams: 06/13/20 05:06 06/13/20 05:06 Lab Results 06/12/20 Range/Units 17:06 Urine Opiates Screen Detected H (NotDetected) Ur Oxycodone Screen Not Detected (NotDetected) Urine Methadone Screen Not Detected (NotDetected) Ur Propoxyphene Screen Not Detected (NotDetected) Ur Barbiturates Screen Not Detected (NotDetected) U Tricyclic Antidepress Not Detected (NotDetected) Ur Phencyclidine Scrn Not Detected (NotDetected) Ur Amphetamines Screen Detected H (NotDetected) U Methamphetamines Scrn Detected H (NotDetected) U Benzodiazepines Scrn Detected H (NotDetected) Urine Cocaine Screen Not Detected (NotDetected) U Marijuana (THC) Screen Detected H (NotDetected) Disposition Clinical Impression: Psychosis Disposition: ADMITTED IP TO THIS [facility] Condition: Stable Is patient prescribed a controlled substance at d/c from ED?: No
[2020-06-12] MEDS ORDERED: NICOTINE 21MG/24HR PATCH TRANSDERM STA (21:53)
[2020-06-13] MEDS ORDERED: LORazepam 1 MG TAB PO PRN (04:22)
[2020-06-13] MEDS ORDERED: MAGNESIUM HYDROXIDE 2,400 MG/10 ML CUP PO PRN (04:22)
[2020-06-13] MEDS ORDERED: NITROGLYCERIN SL TABS 0.4 MG TAB SUBLINGUAL PRN (04:26)
[2020-06-13] MEDS ORDERED: LORazepam 2 MG/ML INJ IM PRN (04:27)
[2020-06-13] MEDS ORDERED: HALOPERIDOL LACTATE 5 MG/ML 1 ML VIAL IM PRN (04:29)
[2020-06-13] MEDS ORDERED: haloperidoL 1 MG TAB PO PRN (04:30)
[2020-06-13 05:42] LABS: Basophils % (A) 0 %; Eosinophils # (A) 0.1 k/uL (0-0.7); Eosinophils % (A) 1 %; HCT 50.4 % (39.0-53.0); HGB 16.7 gm/dL (13.0-17.5); Lymphocytes # (A) 1.4 k/uL (1.0-4.8); Lymphocytes % (A) 29 %; MCH 33.9 pg (25.0-35.0); MCHC 33.1 g/dL (31.0-37.0); MCV 102.5 fL (80.0-100.0); Macrocytosis Slight; Mean Platelet Volume 8.1; Monocytes # (A) 0.3 k/uL (0-1.0); Monocytes % (A) 6 %; Neutrophils # (A) 3.1 k/uL (1.3-7.7); Neutrophils % (A) 62 %; Platelet Count 148 k/uL (150-450); RBC 4.92 m/uL (4.30-5.90); WBC 4.9 k/uL (3.8-10.6)
[2020-06-13] MEDS: LORazepam 1 MG TAB PO PRN ×3 (05:50→22:15)
[2020-06-13 06:11] LABS: ALT 26 U/L (4-49); AST 30 U/L (17-59); African American GFR (CKD) >90 (>60 ml/min/1.73 sqM); Albumin 3.6 g/dL (3.5-5.0); Alkaline Phosphatase 64 U/L (38-126); Anion Gap 2 mmol/L; Blood Urea Nitrogen 17 mg/dL (9-20); Calcium 8.8 mg/dL (8.4-10.2); Carbon Dioxide 28 mmol/L (22-30); Chloride 105 mmol/L (98-107); Glucose 88 mg/dL (74-99); Non-African American GFR(CKD) >90 (>60 ml/min/1.73 sqM); Potassium 4.7 mmol/L (3.5-5.1); Sodium 135 mmol/L (137-145); Total Bilirubin 0.7 mg/dL (0.2-1.3); Total Protein 6.5 g/dL (6.3-8.2)
[2020-06-13 06:16] LABS: Valproic Acid (Depakene) 23.5 ug/mL
[2020-06-13 06:36] LABS: Cholesterol 76 mg/dL (<200); HDL Cholesterol 26 mg/dL (40-60); LDL Cholesterol,Calculated 35 mg/dL (0-99); Triglycerides 75 mg/dL (<150)
[2020-06-13] MEDS: NICOTINE 14MG/24HR PATCH TRANSDERM SCH (08:08)
--- NOTE | 2020-06-13 11:20 | P.HP ---
Psychiatric H&P - . H&P Date: 06/13/20 History & Physical: IDENTIFYING DATA: Syd is a 49-year-old male who was admitted to the psychiatric unit involuntarily. His mother completed the petition that documented: "saying he is in charge of whom lives and who dies. I am in fear of my life. He is out of control. Combative. Mean." HISTORY OF PRESENT ILLNESS: I reviewed the medical record, interviewed the patient, reviewed records from [facility] and spoke with his mother on the telephone. He presented this admission as a misunderstanding. He alleged that he is being harassed by his family. He is concerned that he has a "staph infection". He talked about having a injury to the pubic area resulting in infection of his blood. He is distressed that his primary doctor did not take his concerns about the staph infection seriously. His only other concern was the consequences of his urine drug screen. Several times during interview expressed concern that his doctor will stop prescribing him morphine and Narco because his urine drug screen was positive for methamphetamine. He described a history of an opiate use disorder. He stopped using heroin after his primary began prescribing him opiate pain medications. If his primary will not prescribe the morphine and Narco and he would "just go back to heroin." His mother was quite distressed on the telephone. She complained that his behavior has been hostile and threatening. He "yells at me" and "shakes his fist at me." On the day of admission he talked about aliens coming to [place] and asked her if she wanted to the aliens to take her away. He stated that he lives between her house and several friends and other family members. He usually stays with friends or family for "couple weeks" until they tire of his behavior and asked him to leave. 2 weeks ago he moved in with a friend who recently asked him to leave the house. He apparently called a cab to come back to her home but during the ride the cabdriver asked him to leave get out of the cab. He refused and the cabbie called the [employer]. He walked to his mother's home and became upset when she would not allow them into the house. She stated that she completed the petition because she is afraid of him. He is chronically and persistently mentally ill in addition to the history of substance use and substance use problems. He is active with [facility] for the diagnoses of schizoaffective disorder. In addition, he has diagnosis of opiate use disorder, alcohol use disorder, inadequate housing and he legal problems. His assigned psychiatrist is Dr. Zimmer but Dr. Aguilar consult for second opinion on 06/07/2020. Dr. Aguilar notes that his thought processes were grossly disorganized. He has a history of auditory, visual and tactile hallucinations, delusional beliefs and disruptions in his mood. Dr. Aguilar recommended a referral to the ACT team, lithium carbonate and clozapine. He minimized the extent severity of his methamphetamine use but acknowledged that he recently insufflated methamphetamine" with a friend." He alleged that he uses methamphetamine "maybe once a month where" He denied that he has injected methamphetamine. He has a history of intravenous heroin use but denied use of heroin since his prescribed Narco and morphine. PAST PSYCHIATRIC HISTORY: He has received mental health services since she was 18 years old. She had multiple admissions to this psychiatric unit. We estimate that he has been admitted approximately 30 times although the last admission was in September 2012. His current medications include Benadryl 50 mg at bedtime, Celexa 40 mg daily, Depakote ER 1000 mg at bedtime and Invega Trinza 819 mg every 3 months. PAST MEDICAL HISTORY: He is a history of hypertension, myocardial infarction and chronic back pain. ALLERGIES: Cephalexin SUBSTANCE USE HISTORY: He has a history of an opiate use disorder and alcohol use disorder. He alleged that he was admitted to [facility] for treatment of substance abuse program. The record indicates that he is admitted to inpatient substance abuse treatment programs approximately 12 times. The records indicate been treated in methadone in his program and prescribed Suboxone. He admitted to use of marijuana and boasted that he has a medical marijuana card. His UDS was positive for opiates, amphetamines, methamphetamine, benzodiazepines and marijuana. FAMILY PSYCHIATRIC/SUBSTANCE USE HISTORY: He alleged that his mother had a history of depression. LEGAL HISTORY: He is not on probation, parole or has pending charges. His long history of legal problems beginning at age 17. 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 He had been imprisoned and has multiple snf incarcerations. His longest incarceration was one half years followed by 7 years of probation. SOCIAL HISTORY: He has 11th grade education. He is unemployed and has no stable housing. Is and twice and has 2 adult children and 3 grandchildren. He recently she is Social Security. He does not have a guardian. MENTAL STATUS EXAM: He presented as a thin elderly male with male pattern balding and long unwashed hair. He made eye contact and attended to the interview. He had flat feet and a slow gait but no prominent physical abnormalities. He had a blunted facial expression. He was alert and oriented to person, place and time. He showed slight psychomotor retardation but no abnormal involuntary movements. Her speech was spontaneous with normal rate, rhythm and volume. His affect was anxious but stable and appropriate. He denied suicidal ideation, wishes or homicidal ideation. Denied feeling hopeless, helpless or worthless. He ruminated over the circumstances that led to this hospitalization but did not express clear phobias. He expressed paranoid ideation and delusional beliefs about aliens and "the third eye". His thinking was concrete but his associations were goal directed. He denied hallucinations and did not appear to be responding to internal stimuli. STRENGTHS: Stable income, relatively good physical health, engagement with community mental health WEAKNESSES: Chronic and persistent mental illness, unstable housing, recurrent substance use and substance use problems IMPRESSION: Is a 49-year-old male with long history of psychiatric, substance and legal problems. He presented to unit involuntarily with a history of erratic and threatening behavior. He minimized the circumstances that led to this hospitalization and expressed a fixed belief that he has a staph infection. He has been receiving long-acting injections of antipsychotic medications due to history of poor compliance. He expressed grandiose and paranoid delusions. I suspect that the recent change in his mental status is related to his use of methamphetamine. He should be treated inpatient basis with combination of psychopharmacology and multimodal therapy. PRINCIPLE DIAGNOSIS: Schizoaffective disorder bipolar type, methamphetamine use disorder, opiate use disorder severe, alcohol use disorder severe, marijuana use disorder, unstable housing RECOMMENDATION: Admitted to the psychiatric unit. Proceed with involuntary hospitalization. Consult medicine for initial physical exam and medical history and obtain clarification of the need for prescriptions for morphine and [place]. Social work to complete initial psychosocial supplement coordinate discharge and aftercare. Discussed the recommendations for lithium and clozapine. Encourage participation in therapeutic groups and activities. Evaluate clinical status response to treatment daily basis. Allergies Allergy/AdvReac Type Severity Reaction Status Date / Time cephalexin monohydrate AdvReac Vomiting Verified 06/12/20 18:07 [From Keflex] Vital Signs Temp 97.1 F L 06/13/20 04:26 Pulse 88 06/13/20 04:26 Resp 18 06/13/20 04:26 BP 138/93 06/13/20 04:26 Pulse Ox 98 06/13/20 04:26 Intake & Output 06/12/20 06/13/20 06/13/20 18:59 06:59 18:59 Weight 62.596 kg 66.2 kg Laboratory Last Values WBC 4.9 k/uL (3.8-10.6) 06/13/20 05:06 RBC 4.92 m/uL (4.30-5.90) 06/13/20 05:06 Hgb 16.7 gm/dL (13.0-17.5) 06/13/20 05:06 Hct 50.4 % (39.0-53.0) 06/13/20 05:06 MCV 102.5 fL (80.0-100.0) H 06/13/20 05:06 MCH 33.9 pg (25.0-35.0) 06/13/20 05:06 MCHC 33.1 g/dL (31.0-37.0) 06/13/20 05:06 RDW 13.0 % (11.5-15.5) 06/13/20 05:06 Plt Count 148 k/uL (150-450) L 06/13/20 05:06 MPV 8.1 06/13/20 05:06 Neutrophils % 62 % 06/13/20 05:06 Lymphocytes % 29 % 06/13/20 05:06 Monocytes % 6 % 06/13/20 05:06 Eosinophils % 1 % 06/13/20 05:06 Basophils % 0 % 06/13/20 05:06 Neutrophils # 3.1 k/uL (1.3-7.7) 06/13/20 05:06 Lymphocytes # 1.4 k/uL (1.0-4.8) 06/13/20 05:06 Monocytes # 0.3 k/uL (0-1.0) 06/13/20 05:06 Eosinophils # 0.1 k/uL (0-0.7) 06/13/20 05:06 Basophils # 0.0 k/uL (0-0.2) 06/13/20 05:06 Macrocytosis Slight 06/13/20 05:06 Sodium 135 mmol/L (137-145) L 06/13/20 05:06 Potassium 4.7 mmol/L (3.5-5.1) 06/13/20 05:06 Chloride 105 mmol/L (98-107) 06/13/20 05:06 Carbon Dioxide 28 mmol/L (22-30) 06/13/20 05:06 Anion Gap 2 mmol/L 06/13/20 05:06 BUN 17 mg/dL (9-20) 06/13/20 05:06 Creatinine 0.83 mg/dL (0.66-1.25) 06/13/20 05:06 Est GFR (CKD-EPI)AfAm >90 (>60 ml/min/1.73 sqM) 06/13/20 05:06 Est GFR (CKD-EPI)NonAf >90 (>60 ml/min/1.73 sqM) 06/13/20 05:06 Glucose 88 mg/dL (74-99) 06/13/20 05:06 Calcium 8.8 mg/dL (8.4-10.2) 06/13/20 05:06 Total Bilirubin 0.7 mg/dL (0.2-1.3) 06/13/20 05:06 AST 30 U/L (17-59) 06/13/20 05:06 ALT 26 U/L (4-49) 06/13/20 05:06 Alkaline Phosphatase 64 U/L (38-126) 06/13/20 05:06 Total Protein 6.5 g/dL (6.3-8.2) 06/13/20 05:06 Albumin 3.6 g/dL (3.5-5.0) 06/13/20 05:06 Triglycerides 75 mg/dL (<150) 06/13/20 05:06 Cholesterol 76 mg/dL (<200) 06/13/20 05:06 LDL Cholesterol, Calc 35 mg/dL (0-99) 06/13/20 05:06 HDL Cholesterol 26 mg/dL (40-60) L 06/13/20 05:06 TSH 0.779 mIU/L (0.465-4.680) 06/13/20 05:06 Urine Opiates Screen Detected (NotDetected) H 06/12/20 17:06 Ur Oxycodone Screen Not Detected (NotDetected) 06/12/20 17:06 Urine Methadone Screen Not Detected (NotDetected) 06/12/20 17:06 Ur Propoxyphene Screen Not Detected (NotDetected) 06/12/20 17:06 Ur Barbiturates Screen Not Detected (NotDetected) 06/12/20 17:06 Valproic Acid 23.5 ug/mL 06/13/20 05:06 U Tricyclic Antidepress Not Detected (NotDetected) 06/12/20 17:06 Ur Phencyclidine Scrn Not Detected (NotDetected) 06/12/20 17:06 Ur Amphetamines Screen Detected (NotDetected) H 06/12/20 17:06 U Methamphetamines Scrn Detected (NotDetected) H 06/12/20 17:06 U Benzodiazepines Scrn Detected (NotDetected) H 06/12/20 17:06 Urine Cocaine Screen Not Detected (NotDetected) 06/12/20 17:06 U Marijuana (THC) Screen Detected (NotDetected) H 06/12/20 17:06 Coronavirus (PCR) Not Detected (Not Detectd) 06/13/20 03:22 06/13/20 10:48
[2020-06-13 14:45] LABS: Hemoglobin A1C 5.1 % (4.0-6.0)
[2020-06-13] MEDS: MAG HYDROX/AL HYDROX/SIMETH 30 ML CUP PO PRN (15:30)
--- NOTE | 2020-06-13 18:46 | P.HPIM ---
History of Present Illness H&P Date: 06/13/20 Syd Zavala, is a 49-year-old male well-known to my practice who presented to [facility] emergency room under the dentition from his mother for admission to the psychiatry unit due to patient being " mean combative and out of control", patient has a known history of heroin addiction, he has known history of chronic back pain with multiple disc herniation in the back, patient had 2 back surgeries in the past, he has been maintained on a regimen of [place] and morphine, and has been stable for several years, patient follows with [facility] for his psychiatry care issues. He has also known history for hypertension and coronary artery disease. On arrival to emergency room patient drug screen was positive for opiates amphetamine methamphetamine benzodiazepine and marijuana. Patient is complaining of having a staph infection in the groin area, he is complaining of chronic back pain otherwise he denies any physical complaints at this time, there is no fever or chills no headache or dizziness no chest pain no shortness of breath no cough no nausea or vomiting no abdominal pain no diarrhea no blood in the stools no burning with urination no frequency or urgency and no hematuria. Patient was evaluated by psychiatry, his principal diagnosis of his schizoaf fective disorder bipolar type, methamphetamine use disorder, opiate use disorder, alcohol use disorder, and marijuana use disorder. Past Medical History Past Medical History: Hypertension, Myocardial Infarction ([place]) Additional Past Medical History / Comment(s): chronic back pain Last Myocardial Infarction Date:: 05/10/16 History of Any Multi-Drug Resistant Organisms: MRSA Date of last positivie culture/infection: 2011 MDRO Source:: eye Past Surgical History: Heart Catheterization With Stent Additional Past Surgical History / Comment(s): back surgery Past Anesthesia/Blood Transfusion Reactions: No Reported Reaction Date of Last Stent Placement:: 0 Past Psychological History: Bipolar Smoking Status: Current every day smoker Past Alcohol Use History: None Reported Past Drug Use History: Marijuana - Past Family History Mother Family Medical History: Hypertension Brother(s) Family Medical History: Myocardial Infarction ([place]) Additional Family Medical History / Comment(s): from [place] at age 38 Medications and Allergies Home Medications Medication Instructions Recorded Confirmed Type Morphine Sulfate [Morphine Sulfate 30 mg PO BID 05/10/16 06/12/20 History ER] Atorvastatin [Lipitor] 80 mg PO HS #30 tab 11/09/16 12/09/20 Rx Metoprolol Tartrate [Lopressor] 25 mg PO BID #60 tab 05/13/16 06/12/20 Rx Nitroglycerin Sl Tabs [Nitrostat] 0.4 mg SUBLINGUAL Q5M PRN #25 tab 05/13/16 06/12/20 Rx lisinopriL [Zestril] 10 mg PO BID #60 tab 05/13/16 06/12/20 Rx HYDROcodone/APAP 10-325MG [[place] 1 tab PO TID PRN 12/07/18 06/12/20 History 10-325] Ondansetron HCl [Zofran] 4 mg PO Q4H PRN 12/07/18 06/12/20 History Pregabalin [Lyrica] 75 mg PO BID 12/07/18 06/12/20 History amLODIPine [Norvasc] 5 mg PO DAILY 12/07/18 06/12/20 History carvediloL [Coreg] 3.125 mg PO DAILY 12/07/18 06/12/20 History Citalopram Hydrobromide [CeleXA] 40 mg PO DAILY 06/12/20 06/12/20 History Divalproex ER [Depakote ER] 500 mg PO BID 06/12/20 06/12/20 History Paliperidone Palmitate [Invega 819 mg IM Q90D 06/12/20 06/12/20 History Trinza] Allergies Allergy/AdvReac Type Severity Reaction Status Date / Time cephalexin monohydrate AdvReac Vomiting Verified 06/12/20 18:07 [From Keflex] Physical Exam Vitals: Vital Signs Temp Pulse Pulse Resp BP BP Pulse Ox 06/13/20 15:35 97.6 F 113 H 132/82 06/13/20 04:26 97.1 F L 88 18 138/93 98 06/13/20 03:00 88 17 123/79 98 Intake and Output 06/13/20 06/13/20 06/13/20 06:59 14:59 22:59 Other: Weight 66.2 kg In general patient is alert and oriented 3 HEENT head normocephalic and atraumatic Neck is supple no JVD no goiter no lymphadenopathy Chest exam reveals a few scattered crackles bilaterally no wheezing Cardiac exam reveals regular heart sounds no gallops no murmurs Abdomen is soft nontender no organomegaly with normal bowel sounds Extremity exam reveals no edema no cyanosis or clubbing Neurological examination reveals no gross focal deficit Examination of the groin area reveals a small area of erythema induration and tenderness Results CBC & Chem 7: 06/13/20 05:06 06/13/20 05:06 Labs: Abnormal Lab Results - Last 24 Hours (Table) 06/13/20 06/13/20 Range/Units 05:06 05:06 MCV 102.5 H (80.0-100.0) fL Plt Count 148 L (150-450) k/uL Sodium 135 L (137-145) mmol/L HDL Cholesterol 26 L (40-60) mg/dL Assessment and Plan Plan: 1. Schizoaffective disorder and multiple drug use disorder, management as per primary psychiatry team 2. Evidence of small abscess in the suprapubic area, no drainage at this time will restart patient on oral antibiotic and antibiotic cream, will follow till clear, no need for any intervention otherwise at this time 3. Underlying history of hypertension well-controlled on medication Will resume home medications 4. Underlying history of coronary artery disease stable no cardiac symptoms at this time 5. Underlying history of chronic back pain with severe abnormality on MRI, with history of 2 back surgeries in the past, at this time patient will not be on any narcotics, will have to arrange for a pain clinic for follow-up as his current m ultiple drug use is against his narcotic agreement with our office. Will follow during this admission for medical management
[2020-06-13] MEDS: MUPIROCIN 2% OINT 22 GM TUBE TOPICAL SCH ×2 (21:56→22:13)
[2020-06-13] MEDS: SULFAMETHOX-TMP 800-160MG 1 EACH TAB PO SCH (21:57)
[2020-06-13] MEDS: DIVALPROEX ER 500 MG TAB.ER.24H PO SCH (21:57)
[2020-06-14] MEDS: MUPIROCIN 2% OINT 22 GM TUBE TOPICAL SCH ×3 (08:05→21:19)
[2020-06-14] MEDS: NICOTINE 14MG/24HR PATCH TRANSDERM SCH (08:05)
[2020-06-14] MEDS: SULFAMETHOX-TMP 800-160MG 1 EACH TAB PO SCH ×2 (08:05→21:19)
[2020-06-14] MEDS ORDERED: LORazepam 2 MG/ML INJ IM PRN (08:26)
[2020-06-14] MEDS ORDERED: cloNIDine HCL 0.2 MG TAB PO PRN (08:26)
[2020-06-14] MEDS ORDERED: DIPHENOX-ATROP 2.5-0.025 MG 1 EACH TAB PO PRN (08:28)
--- NOTE | 2020-06-14 10:56 | P.PN ---
Progress Note - Text Progress Note Date: 06/14/20 Clinical Problems: schizoaffective disorder bipolar type, methamphetamine use disorder, cannabis use disorder, opiate use disorder severe in sustained remission,alcohol use disorder severe in remission, chronic back pain, unstable housing Interim history: I reviewed the medical record, interviewed the patient and discussed his treatment and treatment plan during team meeting. I also left a message to speak with his outpatient psychiatrist. He continued to show no insight or understanding about the reasons for this admission. Again, he talked about his mother "overreacting" when he came to her house. He alleged that he was singing a song when she complained that she was having a "nervous breakdown." At this point his history coincides with that reported by his mother yesterday; that he called emergency services concerned that she was "having a stroke" at which time she was calling the machine fitter's department. He expressed some overvalued ideas and grandiose delusional beliefs that he has special collins. He believes that he is "from the future" and talked about a conspiracy against the man with whom he was living. He related a disjointed story that a neighbor whose name was "lelsy" was planning to kill his roommate because his [facility] middle name was "Romario" and "kill" is in the name "lesly. In the midst of his story he talked about having a video conference scheduled with the cast of a television show. He believes that he is extremely knowledgeable because he is watching more television than anyone else. We discussed treatment options. He is concerned that without a change in medications he will not be able to return to his mother's home. Apparently she told him unless he agrees to a medication change he is not allowed to return. We reviewed the recommendations from Dr. Aguilar at [facility]. The patient agreed to a trial of clozapine. Medical consultation appreciated. His primary is recommending referral to a pain clinic because he violatedher pain treatment contract. He is requesting frequent doses of Ativan for complaints of subjective anxiety. He is denying apparent opiate withdrawal symptoms Mental status exam: He presented as a short 49-year-old male with male pattern balding and long hair. He made eye contact and appeared to attend to the interview. He walks slowly and awkwardly. He had a blunted but bright facial expression. He was alert and oriented to person, place and time. He showed no abnormality of psychomotor activity. His speech was spontaneous with increased rate but normal volume. His affect was elevated but not inappropriate over the intense. He denied suicidal ideation or wishes. He expressed magical ideation, grandiose delusional beliefs and overvalued ideas. His thinking was concrete but his associations were coherent and logical. He denied hallucinations and did not appear to be responding to internal stimuli. Assessment: He shows signs and symptoms of hypomania with grandiose delusional beliefs. He would benefit from a trial of clozapine considering the duration and persistence of his mental illness. Plan: continue inpatient treatment. Probate hearing pending. Continue Depakote 1000 mg at bedtime. ecrease Ativan 1 mg by mouth 4 times a day when necessary for anxiety. Begin clonidine 1 mg 4 times a day and Lomotil when necessary for opiate withdrawal symptoms. Begin clozapine 12.5 mg daily and titrate to 100 mg daily. Weekly CBC with differential. Encourage participation in therapeutic groups and activities. Evaluate clinical status response to treatment daily basis.
[2020-06-14] MEDS: cloZAPine 25 MG TAB PO SCH (11:28)
[2020-06-14] MEDS: ACETAMINOPHEN TAB 325 MG TAB PO PRN (19:13)
[2020-06-14] MEDS: LORazepam 1 MG TAB PO PRN (19:16)
[2020-06-14] MEDS ORDERED: cloZAPine 100 MG TAB PO SCH (21:00)
[2020-06-14] MEDS: DIVALPROEX ER 500 MG TAB.ER.24H PO SCH (21:19)
[2020-06-15] MEDS: MUPIROCIN 2% OINT 22 GM TUBE TOPICAL SCH ×3 (08:41→21:03)
[2020-06-15] MEDS: cloZAPine 25 MG TAB PO SCH (08:42)
[2020-06-15] MEDS: NICOTINE 14MG/24HR PATCH TRANSDERM SCH (08:42)
[2020-06-15] MEDS: SULFAMETHOX-TMP 800-160MG 1 EACH TAB PO SCH ×2 (08:42→21:02)
[2020-06-15] MEDS: MAG HYDROX/AL HYDROX/SIMETH 30 ML CUP PO PRN (08:45)
--- NOTE | 2020-06-15 10:56 | P.PN ---
Progress Note - Text Progress Note Date: 06/15/20 Interval history: Patient was seen resting in bed and reading a book and was directable and agreeable to speak with marketing underwriter. Patient reports that he is feeling well. He is not reporting any suicidal or homicidal ideation, intention, and/or plan. He is not reporting any auditory or visual hallucinations. He does report that he is telepathic and is able to read minds. He continues to believe that he has some special collins and endorsing conspiracy and grandiose delusional thoughts. Mental status exam: General Appearance: Patient appears to be stated age is alert, directable, and cooperative. He has villarreal hair, is of thin build. Behavior: No agitated behavior. Patient is calm and directable. Resting in bed comfortably. Reading a book. Speech: Patient's speech is fluent and nonpressured. Mood/Affect: Mood is improving mildly, affect is congruent and pleasant. Suicidality/Homicidality: Patient denies having any suicidal or homicidal ideation intent or plan. Perceptions: Patient denies any auditory or visual hallucinations. Though content/process: Grandiose delusions. Magical thinking. Memory and concentration: AOX3, grossly intact for the purposes of this session Judgment and insight: improving mildly Assessment/Plan: Continue with current diagnosis. Patient continues to meet criteria for inpatient psychiatric admission for symptom stabilization and safety.Patient will be maintained on current psychotropic medication regimen. Monitor for medication compliance and for any psychotropic medication side effects. Will continue to monitor ongoing response to treatment. Encouraged participation in milieu.
[2020-06-15 12:24] LABS: Appearance,Urine Clear (Clear); Bilirubin,Urine Negative (Negative); Blood,Urine Negative (Negative); Color,Urine Light Yellow; Glucose,Urine (UA) Negative (Negative); Ketones,Urine Negative (Negative); Leukocyte Esterase,Urine Negative (Negative); Nitrite,Urine Negative (Negative); Protein,Urine Negative (Negative); Specific Gravity,Urine 1.008 (1.001-1.035); Urobilinogen,Urine <2.0 mg/dL (<2.0)
[2020-06-15] MEDS: DIVALPROEX ER 500 MG TAB.ER.24H PO SCH (21:02)
[2020-06-16] MEDS: NICOTINE 14MG/24HR PATCH TRANSDERM SCH (08:00)
[2020-06-16] MEDS: SULFAMETHOX-TMP 800-160MG 1 EACH TAB PO SCH ×2 (08:01→20:36)
[2020-06-16] MEDS: MUPIROCIN 2% OINT 22 GM TUBE TOPICAL SCH ×3 (08:01→20:54)
[2020-06-16] MEDS: cloZAPine 25 MG TAB PO SCH (08:01)
--- NOTE | 2020-06-16 12:11 | P.PN ---
Progress Note - Text Progress Note Date: 06/16/20 Interval history: Patient was seen wandering the hallways and was directable and agreeable to speak with senior underwriter. Patient reports that he feels "great." He does not endorse any suicidal or homicidal ideation, intention, and/or plan. He is not reporting auditory or visual hallucinations. He does continue to endorse delusional thought processes. He reports that he is able to read minds and is telepathic. He also reports that he has been receiving messages from the television and radio. He reports that [employer] would send him messages. He also reports that he "does not like to watch reruns because reruns rewrite history." He does state though that these messages are less frequent. He has been adherent with his medications and is not reporting any significant side effects. Mental status exam: General Appearance: Patient appears to be stated age is alert, directable, and cooperative. He has villarreal hair, is of thin build. Behavior: No agitated behavior. Patient is calm and directable. Speech: Patient's speech is fluent and nonpressured. Mood/Affect: Mood is great, affect is congruent and pleasant, and bright. Suicidality/Homicidality: Patient denies having any suicidal or homicidal ideation intent or plan. Perceptions: Patient denies any auditory or visual hallucinations. Though content/process: Grandiose delusions, delusions of surveillance, ideas of reference, magical thinking. Memory and concentration: AOX3, grossly intact for the purposes of this session Judgment and insight: improving mildly Assessment/Plan: Continue with current diagnosis. Patient continues to meet criteria for inpatient psychiatric admission for symptom stabilization and safety. Patient will be maintained on current psychotropic medication regimen. The patient's Clozaril is continuing to be titrated and the patient is tolerating it well. Monitor for medication compliance and for any psychotropic medication side effects. Will continue to monitor ongoing response to treatment. Encouraged participation in milieu.
[2020-06-16] MEDS: DIVALPROEX ER 500 MG TAB.ER.24H PO SCH (20:36)
[2020-06-16] MEDS: LORazepam 1 MG TAB PO PRN (23:17)
[2020-06-16] MEDS: ACETAMINOPHEN TAB 325 MG TAB PO PRN (23:17)
[2020-06-17] MEDS: ACETAMINOPHEN TAB 325 MG TAB PO PRN (06:57)
[2020-06-17] MEDS: NICOTINE 14MG/24HR PATCH TRANSDERM SCH (08:30)
[2020-06-17] MEDS: SULFAMETHOX-TMP 800-160MG 1 EACH TAB PO SCH ×2 (08:30→20:54)
[2020-06-17] MEDS: cloZAPine 25 MG TAB PO SCH (08:30)
[2020-06-17] MEDS: MUPIROCIN 2% OINT 22 GM TUBE TOPICAL SCH ×3 (08:31→20:54)
--- NOTE | 2020-06-17 12:03 | P.PN ---
Progress Note - Text Progress Note Date: 06/17/20 Clinical Problems: schizoaffective disorder bipolar type, methamphetamine use disorder, cannabis use disorder, opiate use disorder severe in sustained remission,alcohol use disorder severe in remission, chronic back pain, unstable housing Interim history: I reviewed the medical record, interviewed the patient and discussed his treatment and treatment plan during team meeting. He denied side effects to the initial doses of clozapine. He is concerned about where he'll live when he leaves the hospital. He would prefer to return to live with his mother but would accept placement in a intermediate. He asked if we could call his mother and explained that he is agreed to take a "new medication" and apparent criteria for him being allowed back into her home. He again described chronic delusional beliefs. He talked about "brain waves" that can be transmitted to people and "recorded" by "the computers." The "aliens" present him from seeing the recordings of his brain waves. He met with his court appointed transactional attorney and deferred the probate hearing on 06/14/2020. He is shown no signs and symptoms of opiate withdrawal. Mental status exam: He presented as a short 49-year-old male with male pattern balding and long hair. He made eye contact and appeared to attend to the interview. He has slow but steady gait. He had a blunted but bright facial expression. He was alert and oriented to person, place and time. He showed no abnormality of psychomotor activity. His speech was spontaneous with normal volume. His affect was stable and appropriate. He denied suicidal ideation or wishes. He expressed magical ideation, grandiose delusional beliefs and overvalued ideas. His thinking was concrete but his associations were coherent and logical. He denied hallucinations and did not appear to be responding to internal stimuli. Assessment: He is not currently showing signs or symptoms of radha or hypomania. He continues to maintain the chronic and fixed delusional beliefs. I suspect that his disturbance of mood and affect are due to use of methamphet amine and noncompliance with treatment. Plan: continue inpatient treatment. Continue Depakote 1000 mg at bedtime. Decrease Ativan .5 mg by mouth TID when necessary for anxiety. Continue clonidine 1 mg 4 times a day and Lomotil when necessary for opiate withdrawal symptoms. Continue titration of clozapine Weekly CBC with differential. Encourage participation in therapeutic groups and activities. Evaluate clinical status response to treatment daily basis.
[2020-06-17] MEDS: LORazepam 0.5 MG TAB PO PRN (12:51)
[2020-06-17] MEDS: DIVALPROEX ER 500 MG TAB.ER.24H PO SCH (20:54)
[2020-06-18 06:11] VITALS: RESP 16
[2020-06-18] MEDS: SULFAMETHOX-TMP 800-160MG 1 EACH TAB PO SCH ×2 (07:55→20:50)
[2020-06-18] MEDS: cloZAPine 25 MG TAB PO SCH ×2 (07:55→07:56)
[2020-06-18] MEDS: NICOTINE 14MG/24HR PATCH TRANSDERM SCH (07:56)
[2020-06-18] MEDS: MUPIROCIN 2% OINT 22 GM TUBE TOPICAL SCH ×3 (11:21→20:55)
--- NOTE | 2020-06-18 11:47 | P.PN ---
Progress Note - Text Progress Note Date: 06/18/20 Clinical Problems: schizoaffective disorder bipolar type, methamphetamine use disorder, cannabis use disorder, opiate use disorder severe in sustained remission,alcohol use disorder severe in remission, chronic back pain, unstable housing Interim history: I reviewed the medical record, interviewed the patient and discussed his treatment and treatment plan during team meeting. He denied side effects to the initial doses of clozapine. He is shown no signs and symptoms of opiate withdrawal. He has been inappropriate with one of the female nurses. He has spoken with her mother who informed him that he cannot return to live for her. He is also spoken with the person with whom he was living prior to admission and stated that he can return. Mental status exam: He presented as a short 49-year-old male with male pattern balding and long hair. He made eye contact and appeared to attend to the interview. He has slow but steady gait. He had a bright facial expression. He was alert and oriented to person, place and time. He showed no abnormality of psychomotor activity. His speech was spontaneous, slightly pressured but with normal volume. His affect was stable and appropriate. He denied suicidal ideation or wishes. He expressed magical ideation, grandiose delusional beliefs and overvalued ideas. His thinking was concrete but his associations were coherent and logical. He denied hallucinations and did not appear to be responding to internal stimuli. Assessment: He has some signs of hypomania. He continues to maintain the chronic and fixed delusional beliefs. Plan: continue inpatient treatment. Continue Depakote 1000 mg at bedtime. Decrease Ativan .5 mg by mouth TID when necessary for anxiety. Continue clonidine 1 mg 4 times a day and Lomotil when necessary for opiate withdrawal symptoms. Continue titration of clozapine Weekly CBC with differential. Encourage participation in therapeutic groups and activities. Evaluate clinical status response to treatment daily basis.
[2020-06-18] MEDS: DIVALPROEX ER 500 MG TAB.ER.24H PO SCH (20:50)
[2020-06-18] MEDS: LORazepam 0.5 MG TAB PO PRN (20:52)
[2020-06-19 07:02] VITALS: BP 133/86; PULSE 126
[2020-06-19] MEDS: ACETAMINOPHEN TAB 325 MG TAB PO PRN (08:35)
[2020-06-19] MEDS: NICOTINE 14MG/24HR PATCH TRANSDERM SCH (08:36)
[2020-06-19] MEDS: SULFAMETHOX-TMP 800-160MG 1 EACH TAB PO SCH (08:36)
[2020-06-19] MEDS: MUPIROCIN 2% OINT 22 GM TUBE TOPICAL SCH (08:37)
[2020-06-19 08:48] LABS: Basophils % (A) 0 %; Eosinophils # (A) 0.1 k/uL (0-0.7); Eosinophils % (A) 2 %; HCT 53.7 % (39.0-53.0); HGB 18.5 gm/dL (13.0-17.5); Lymphocytes # (A) 1.5 k/uL (1.0-4.8); Lymphocytes % (A) 24 %; MCH 35.5 pg (25.0-35.0); MCHC 34.4 g/dL (31.0-37.0); MCV 103.3 fL (80.0-100.0); Macrocytosis Slight; Mean Platelet Volume 7.8; Monocytes # (A) 0.4 k/uL (0-1.0); Monocytes % (A) 6 %; Neutrophils # (A) 4.1 k/uL (1.3-7.7); Neutrophils % (A) 66 %; Platelet Count 159 k/uL (150-450); RDW 12.2 % (11.5-15.5); WBC 6.2 k/uL (3.8-10.6)
--- NOTE | 2020-06-19 11:17 | P.DS ---
Providers Date of admission: 06/13/20 03:13 Attending physician: Eduar Meeks MD Consults: 06/13/20 04:22 Consult Physician Routine Consulting Provider: Sha Ocampo Consult Reason/Comments: For H & P for Medical Follow Up Do you want consulting provider notified?: Yes, Notify in am Primary care physician: Sha Ocampo - Discharge Diagnosis(es) (1) Schizoaffective disorder, bipolar type Current Visit: Yes Status: Chronic Priority: High (2) Methamphetamine use disorder, moderate Current Visit: Yes Status: Chronic Priority: High (3) Cannabis use disorder, mild, abuse Current Visit: Yes Status: Chronic Priority: Medium (4) Alcohol use disorder, severe, in sustained remission Current Visit: Yes Status: Chronic Priority: Low (5) Opioid use disorder, severe, dependence Current Visit: Yes Status: Chronic Priority: High (6) Antisocial personality disorder Current Visit: Yes Status: Chronic Priority: Medium Hospital Course: HISTORY: Anjali is a 49-year-old male who was admitted to the psychiatric unit involuntarily. His mother completed the petition that documented: "saying he is in charge of whom lives and who dies. I am in fear of my life. He is out of control. Combative. Mean." He alleged that he is being harassed by his family. He is concerned that he has a "staph infection". He talked about having a injury to the pubic area resulting in infection of his blood. He is distressed that his primary doctor did not take his concerns about the staph infection seriously. His only other concern was the consequences of his urine drug screen. Several times during interview expressed concern that his doctor will stop prescribing him morphine and Narco because his urine drug screen was positive for methamphetamine. He described a history of an opiate use disorder. He stopped using heroin after his primary began prescribing him opiate pain medications. If his primary will not prescribe the morphine and Narco and he would "just go back to heroin." His mother was quite distressed on the telephone. She complained that his behavior has been hostile and threatening. He "yells at me" and "shakes his fist at me." On the day of admission he talked about aliens coming to earth and asked her if she wanted to the aliens to take her away. He stated that he lives between her house and several friends and other family members. He usually stays with friends or family for "couple weeks" until they tire of his behavior and asked him to leave. 2 weeks ago he moved in with a friend who recently asked him to leave the house. He apparently called a cab to come back to her home but during the ride the cabdriver asked him to leave get out of the cab. He refused and the cabbie called the [employer]. He walked to his mother's home and became upset when she would not allow them into the house. She stated that she completed the petition because she is afraid of him. He is chronically and persistently mentally ill in addition to the history of saez bstance use and substance use problems. He is active with [facility] for the diagnoses of schizoaffective disorder. In addition, he has diagnosis of opiate use disorder, alcohol use disorder, inadequate housing and he legal problems. His assigned psychiatrist is Dr. Zimmer but Dr. Aguilar consult for second opinion on 06/07/2020. Dr. Aguilar notes that his thought processes were grossly disorganized. He has a history of auditory, visual and tactile hallucinations, delusional beliefs and disruptions in his mood. Dr. Aguilar recommended a referral to the ACT team, lithium carbonate and clozapine. He minimized the extent severity of his methamphetamine use but acknowledged that he recently insufflated methamphetamine" with a friend." He alleged that he uses methamphetamine "maybe once a month where" He denied that he has injected methamphetamine. He has a history of intravenous heroin use but denied use of heroin since his prescribed Narco and morphine. He has received mental health services since she was 18 years old. She had multiple admissions to this psychiatric unit. We estimate that he has been admitted approximately 30 times although the last admission was in September 2012. His current medications include Benadryl 50 mg at bedtime, Celexa 40 mg daily, Depakote ER 1000 mg at bedtime and Invega Trinza 819 mg every 3 months. HOSPITAL COURSE: We admitted him to the psychiatric unit involuntarily. We provided a comprehensive biopsychosocial assessment. His primary physician completed initial physical exam and medical history and diagnosed a small abscess in the suprapubic area, well-controlled hypertension, history of coronary artery disease and chronic back pain. His primary prescribed him morphine sulfate 30 mg twice a day and Olanta 10-325 3 times a day for back pain. Her primary did not recommend to continue his opiate pain medications and will not continue to prescribe as an outpatient because Anjali violated his narcotic agreement. We continued Depakote 1000 mg daily but did not continue his outpatient dose of haloperidol. Instead, based on the consultation by Dr. Aguilar we started clozapine 25 mg daily and titrated to 100 mg daily prior to discharge. ANJALI HAD NO SIGNS OR SYMPTOMS OF OPIATE WITHDRAWAL DURING THIS HOSPITALIZATION. We suspect that the change in his behavior resulted in admission was a result of methamphetamine use and that he was not taking the prescribed doses of his narcotic pain medications. He participated in therapeutic groups and activities. He posed no management problem and had no episodes of behavioral dyscontrol. He denied side effects to the clozapine. MENTAL STATUS ON DISCHARGE: The time of discharge he presented as a casually groomed 49-year-old male with male pattern balding long hair. He made eye contact and attended to the interview. He had no prominent physical modalities. He had a bright facial expression. He showed no abnormality of psychomotor activity. No abnormal involuntary movements. Her speech was spontaneous with slight clear increase in volume but normal rhythm. His affect was bright, stable and appropriate. He denied suicidal ideation or wishes . He denied homicidal ideation. He denied feeling hopeless, helpless or worthless. He ruminated over his relationship with his mother and expressed the belief that his mother was not his biological mother (because she does not remember how she felt during her ). He did not express ideas reference or other delusional beliefs. His thinking was concrete but his associations were coherent and goal directed. He denied hallucinations and did not appear to be responding to internal stimuli. DISPOSITION: He returned to his former address. Her psychotropic medications at discharge include clozapine 100 mg at bedtime and Depakote 1000 mg at bedtime. He has a follow-up appointment scheduled with [facility] one week after discharge. He will follow-up with his primary care provider regarding management of his chronic medical problems. Patient Condition at Discharge: Stable Plan - Discharge Summary Discharge Rx Participant: No New Discharge Prescriptions: New Sulfamethox-Tmp 800-160Mg [Bactrim DS 800-160 mg] 1 each PO BID #14 tab Mupirocin 2% Oint [Bactroban 2% Oint] 1 applic TOPICAL TID #1 applic cloZAPine [Clozaril] 100 mg PO HS #7 tab Divalproex ER [Depakote ER] 1,000 mg PO HS #60 tab.er.24h Nicotine 14Mg/24Hr Patch [Habitrol] 1 patch TRANSDERM DAILY patch Continue Atorvastatin [Lipitor] 80 mg PO HS #30 tab lisinopriL [Zestril] 10 mg PO BID #60 tab Metoprolol Tartrate [Lopressor] 25 mg PO BID #60 tab amLODIPine [Norvasc] 5 mg PO DAILY Pregabalin [Lyrica] 75 mg PO BID Nitroglycerin Sl Tabs [Nitrostat] 0.4 mg SUBLINGUAL Q5M PRN #25 tab PRN Reason: Chest Pain Discontinued Morphine Sulfate [Morphine Sulfate ER] 30 mg PO BID carvediloL [Coreg] 3.125 mg PO DAILY HYDROcodone/APAP 10-325MG [Olanta 10-325] 1 tab PO TID PRN PRN Reason: Pain Citalopram Hydrobromide [CeleXA] 40 mg PO DAILY Divalproex ER [Depakote ER] 500 mg PO BID Paliperidone Palmitate [Invega Trinza] 819 mg IM Q90D No Action Ondansetron HCl [Zofran] 4 mg PO Q4H PRN PRN Reason: Nausea And Vomiting Discharge Medication List Atorvastatin [Lipitor] 80 mg PO HS #30 tab 05/13/16 [Rx] Metoprolol Tartrate [Lopressor] 25 mg PO BID #60 tab 05/13/16 [Rx] lisinopriL [Zestril] 10 mg PO BID #60 tab 05/13/16 [Rx] Ondansetron HCl [Zofran] 4 mg PO Q4H PRN 12/07/18 [History] Pregabalin [Lyrica] 75 mg PO BID 12/07/18 [History] amLODIPine [Norvasc] 5 mg PO DAILY 12/07/18 [History] Divalproex ER [Depakote ER] 1,000 mg PO HS #60 tab.er.24h 06/19/20 [Rx] Mupirocin 2% Oint [Bactroban 2% Oint] 1 applic TOPICAL TID #1 applic 06/19/20 [Rx] Nicotine 14Mg/24Hr Patch [Habitrol] 1 patch TRANSDERM DAILY patch 06/19/20 [Rx] Nitroglycerin Sl Tabs [Nitrostat] 0.4 mg SUBLINGUAL Q5M PRN #25 tab 06/19/20 [Rx] Sulfamethox-Tmp 800-160Mg [Bactrim DS 800-160 mg] 1 each PO BID #14 tab 06/19/20 [Rx] cloZAPine [Clozaril] 100 mg PO HS #7 tab 06/19/20 [Rx] Follow up Appointment(s)/Referral(s): Sha Ocampo MD [Primary Care Provider] - 1-2 days Patient Instructions/Handouts: Schizoaffective Disorder (DC) Activity/Diet/Wound Care/Special Instructions: Activity and diet as tolerated. Avoid the use of street drugs and alcohol. Take all medications as prescribed. When you are in need of refills on your medications please contact your medical provider and/or outpatient psychiatrist to have this done. Please go to scheduled outpatient appointment for aftercare treatment. If symptoms return or become worse, call the crisis line at and/or go to the nearest emergency room for evaluation. Discharge Disposition: HOME SELF-CARE
[2020-06-19 15:12] VITALS: TEMP 97.3
[2020-06-20] MEDS ORDERED: cloZAPine 100 MG TAB PO SCH (10:00)
== END 2020-06-19 15:31 | disposition home or self-care (01) | DRG 885 ==
LOC: EC 16:17 → 3MHU 06-13 03:13
PROVIDERS: ADMIT Psychiatry & Neurology Psychiatry; ATTEND Psychiatry & Neurology Psychiatry
DX: F25.0 Schizoaffective disorder, bipolar type (principal); F15.20 Other stimulant dependence, uncomplicated; L02.211 Cutaneous abscess of abdominal wall; F10.21 Alcohol dependence, in remission; F12.10 Cannabis abuse, uncomplicated; F11.21 Opioid dependence, in remission; F60.2 Antisocial personality disorder; Z20.828 Contact with and (suspected) exposure to other viral communicable diseases; I10 Essential (primary) hypertension; F41.9 Anxiety disorder, unspecified; Z91.19 Patient's noncompliance with other medical treatment and regimen; I25.10 Atherosclerotic heart disease of native coronary artery without angina pectoris; I25.2 Old myocardial infarction; G89.29 Other chronic pain; M54.9 Dorsalgia, unspecified; F17.210 Nicotine dependence, cigarettes, uncomplicated; Z79.899 Other long term (current) drug therapy; Z86.14 Personal history of Methicillin resistant Staphylococcus aureus infection; Z59.1 Inadequate housing; Z65.3 Problems related to other legal circumstances; Z95.5 Presence of coronary angioplasty implant and graft; Z87.39 Personal history of other diseases of the musculoskeletal system and connective tissue; Z98.890 Other specified postprocedural states; Z88.1 Allergy status to other antibiotic agents; Z82.49 Family history of ischemic heart disease and other diseases of the circulatory system; Z82.3 Family history of stroke; Z81.8 Family history of other mental and behavioral disorders
CPT/HCPCS: 80053; 80061; 80164; 80306; 81003; 82075; 83036; 84443; 85025; 87635; 99285

== ENCOUNTER 2020-07-18 15:23 | Inpatient (IN) | payer MEDICARE, MEDICAID ==
--- NOTE | 2020-07-18 16:12 | ED ---
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 please excuse any grammatical, word or spelling errors. This patient was cared for during a federal and state declared state of emergency secondary to Covid 19 Chief Complaint: 50-year-old male brought in by Kitchen Assistant for hop picker order History of Present Illness: A 50-year-old male with past medical history of psychiatric illness. He's been allegedly exhibiting psychotic features. Patient states he is here because he has no place to live. has hop picker order stating that patient has been having psychotic thoughts. Patient has been admitted to inpatient 3 W. in the past. He has no medical complaints at this time. Denies any suicidal or homicidal ideation. He allegedly has been having paranoid thinking and behaviors.. The ROS documented in this emergency department record has been reviewed and confirmed by me. Those systems with pertinent positive or negative responses have been documented in the HPI. All other systems are other negative and/or noncontributory. PHYSICAL EXAM: General Impression: Alert and oriented x3, not in acute distress HEENT: Normocephalic atraumatic, extra-ocular movements intact, pupils equal and reactive to light bilaterally, mucous membranes moist. Cardiovascular: Heart regular rate and rhythm Chest: Able to complete full sentences, no retractions, no tachypnea Abdomen: abdomen soft, non-tender, non-distended, no organomegaly Musculoskeletal: Pulses present and equal in all extremities, no peripheral edema Motor: no focal deficits noted Neurological: CN II-XII grossly intact, no focal motor or sensory deficits noted Skin: Intact with no visualized rashes Psych: Normal affect and mood ED course: 50-year-old male since the emergency Department with Kitchen Assistant's for hop picker order secondary to psychiatric complaints. Vital signs upon arrival are within acceptable limits. Physical examination is unremarkable. Patient is calm and cooperative. Cleared for EPS evaluation. Patient care sign out to oncoming physician for follow-up of EPS recommendations (Shar Inman) - Related Data Home Medications Medication Instructions Recorded Confirmed Ondansetron HCl [Zofran] 4 mg PO Q4H PRN 12/07/18 07/18/20 Pregabalin [Lyrica] 75 mg PO BID 12/07/18 07/18/20 amLODIPine [Norvasc] 5 mg PO DAILY 12/07/18 07/18/20 Benztropine Mesylate [Cogentin] 2 mg PO TID PRN 07/18/20 07/18/20 cloZAPine [Clozaril] 150 mg PO HS 07/18/20 07/18/20 fluPHENAZine decanoate [Prolixin 25 mg IM Q7D 07/18/20 07/18/20 Decanoate] Previous Rx's Medication Instructions Recorded Atorvastatin [Lipitor] 80 mg PO HS #30 tab 05/13/16 Metoprolol Tartrate [Lopressor] 25 mg PO BID #60 tab 05/13/16 lisinopriL [Zestril] 10 mg PO BID #60 tab 05/13/16 Divalproex ER [Depakote ER] 1,000 mg PO HS #60 tab.er.24h 06/19/20 Mupirocin 2% Oint [Bactroban 2% 1 applic TOPICAL TID #1 applic 06/19/20 Oint] Nitroglycerin Sl Tabs [Nitrostat] 0.4 mg SUBLINGUAL Q5M PRN #25 tab 06/19/20 Allergies Allergy/AdvReac Type Severity Reaction Status Date / Time cephalexin monohydrate AdvReac Vomiting Verified 07/18/20 17:10 [From Keflex] Review of Systems ROS Other: All systems not noted in ROS Statement are negative. <Shar Inman - Last Filed: 07/19/20 00:01> ROS Other: All systems not noted in ROS Statement are negative. <Bill Conte - Last Filed: 07/19/20 02:26> ROS Statement: Those systems with pertinent positive or pertinent negative responses have been documented in the HPI. Past Medical History Past Medical History: Hypertension, [place]ocardial Infarction ([place]) Additional Past Medical History / Comment(s): chronic back pain Last Myocardial Infarction Date:: 05/10/16 History of Any Multi-Drug Resistant Organisms: MRSA Date of last positivie culture/infection: 2011 MDRO Source:: eye Past Surgical History: Heart Catheterization With Stent Additional Past Surgical History / Comment(s): back surgery Past Anesthesia/Blood Transfusion Reactions: No Reported Reaction Date of Last Stent Placement:: 0 Past Psychological History: Bipolar Past Alcohol Use History: None Reported Past Drug Use History: Marijuana - Past Family History Mother Family Medical History: Hypertension Brother(s) Family Medical History: Myocardial Infarction ([place]) Additional Family Medical History / Comment(s): from [place] at age 38 <Shar Inman - Last Filed: 07/19/20 00:01> General Exam Limitations: no limitations <Shar Inman - Last Filed: 07/19/20 00:01> Course Vital Signs 07/18/20 07/18/20 15:27 22:10 Temperature 98.3 F Pulse Rate 97 Respiratory 18 18 Rate Blood Pressure 132/93 O2 Sat by Pulse 95 Oximetry Medical Decision Making <Bill Conte - Last Filed: 07/19/20 02:26> - Medical Decision Making I saw this patient and did file the clinical certificate. (Bill Conte) - Lab Data Lab Results 07/18/20 07/18/20 Range/Units 01:25 18:20 Urine Opiates Screen Not Detected (NotDetected) Ur Oxycodone Screen Not Detected (NotDetected) Urine Methadone Screen Not Detected (NotDetected) Ur Propoxyphene Screen Not Detected (NotDetected) Ur Barbiturates Screen Not Detected (NotDetected) U Tricyclic Antidepress Not Detected (NotDetected) Ur Phencyclidine Scrn Not Detected (NotDetected) Ur Amphetamines Screen Not Detected (NotDetected) U Methamphetamines Scrn Not Detected (NotDetected) U Benzodiazepines Scrn Not Detected (NotDetected) Urine Cocaine Screen Not Detected (NotDetected) U Marijuana (THC) Screen Detected H (NotDetected) Coronavirus (PCR) Not Detected (Not Detectd) Disposition <Shar Inman - Last Filed: 07/19/20 00:01> Is patient prescribed a controlled substance at d/c from ED?: No <Bill Conte - Last Filed: 07/19/20 02:26> Clinical Impression: Psychosis Disposition: ADMITTED IP TO THIS [facility] Condition: Fair Referrals: Sha Ocampo MD [Primary Care Provider] - 1-2 days
[2020-07-18 18:55] LABS: Amphetamine Screen,Urine Not Detected (NotDetected); Barbiturate Screen,Urine Not Detected (NotDetected); Benzodiazepines Screen,Urine Not Detected (NotDetected); Cocaine Screen,Urine Not Detected (NotDetected); Methadone Screen, Urine Not Detected (NotDetected); Opiate Screen,Urine Not Detected (NotDetected); Oxycodone Screen, Urine Not Detected (NotDetected); Phencyclidine Screen,Urine Not Detected (NotDetected); Tricyclic Antidepressant,Urine Not Detected (NotDetected); Urn Cannabinoid Scrn Detected (NotDetected)
[2020-07-19] MEDS ORDERED: MAG HYDROX/AL HYDROX/SIMETH 30 ML CUP PO PRN (03:05)
[2020-07-19] MEDS ORDERED: MAGNESIUM HYDROXIDE 2,400 MG/10 ML CUP PO PRN (03:05)
[2020-07-19] MEDS ORDERED: haloperidoL 1 MG TAB PO PRN (03:05)
[2020-07-19] MEDS ORDERED: HALOPERIDOL LACTATE 5 MG/ML 1 ML VIAL IM PRN (03:05)
[2020-07-19] MEDS ORDERED: LORazepam 2 MG/ML INJ IM PRN (03:05)
[2020-07-19] MEDS ORDERED: LORazepam 1 MG TAB PO PRN (03:05)
[2020-07-19] MEDS: LORazepam 1 MG TAB PO PRN (03:56)
[2020-07-19] MEDS: NICOTINE 21MG/24HR PATCH TRANSDERM SCH (06:07)
[2020-07-19 07:54] LABS: Basophils % (A) 0 %; Eosinophils # (A) 0.1 k/uL (0-0.7); Eosinophils % (A) 3 %; HGB 16.2 gm/dL (13.0-17.5); Lymphocytes % (A) 22 %; MCH 34.2 pg (25.0-35.0); MCHC 33.7 g/dL (31.0-37.0); MCV 101.6 fL (80.0-100.0); Mean Platelet Volume 6.8; Monocytes # (A) 0.4 k/uL (0-1.0); Monocytes % (A) 9 %; Neutrophils # (A) 2.9 k/uL (1.3-7.7); Neutrophils % (A) 64 %; Platelet Count 197 k/uL (150-450); RBC 4.72 m/uL (4.30-5.90); RDW 12.6 % (11.5-15.5); WBC 4.6 k/uL (3.8-10.6)
[2020-07-19 08:19] LABS: ALT 31 U/L (4-49); AST 32 U/L (17-59); African American GFR (CKD) >90 (>60 ml/min/1.73 sqM); Albumin 3.7 g/dL (3.5-5.0); Alkaline Phosphatase 73 U/L (38-126); Anion Gap 2 mmol/L; Bilirubin, Delta 0.2 mg/dL (0.0-0.2); Bilirubin,Unconjugated 0.3 mg/dL (0.0-1.1); Blood Urea Nitrogen 12 mg/dL (9-20); Calcium 9.1 mg/dL (8.4-10.2); Carbon Dioxide 33 mmol/L (22-30); Chloride 99 mmol/L (98-107); Cholesterol 107 mg/dL (<200); Glucose 91 mg/dL (74-99); HDL Cholesterol 33 mg/dL (40-60); LDL Cholesterol,Calculated 56 mg/dL (0-99); Non-African American GFR(CKD) >90 (>60 ml/min/1.73 sqM); Potassium 5.6 mmol/L (3.5-5.1); Sodium 134 mmol/L (137-145); Total Bilirubin 0.5 mg/dL (0.2-1.3); Total Protein 6.9 g/dL (6.3-8.2); Triglycerides 92 mg/dL (<150)
[2020-07-19] MEDS: amLODIPine 5 MG TAB PO SCH (08:59)
[2020-07-19] MEDS: METOPROLOL TARTRATE 25 MG TAB PO SCH ×2 (08:59→20:59)
[2020-07-19] MEDS ORDERED: lisinopriL 10 MG TAB PO SCH (09:00)
[2020-07-19 09:01] LABS: Valproic Acid (Depakene) 27.5 ug/mL
--- NOTE | 2020-07-19 11:17 | P.HP ---
Psychiatric H&P - . H&P Date: 07/19/20 History & Physical: Allergies Allergy/AdvReac Type Severity Reaction Status Date / Time cephalexin monohydrate AdvReac Vomiting Verified 07/18/20 17:10 From Keflex Vital Signs Temp 98.4 F 07/19/20 02:50 Pulse 101 H 07/19/20 09:01 Resp 20 07/19/20 09:01 BP 122/72 07/19/20 09:01 Pulse Ox 97 07/19/20 02:50 Intake & Output 07/18/20 07/19/20 07/19/20 18:59 06:59 18:59 Weight 63.503 kg 71.668 kg Laboratory Last Values WBC 4.6 k/uL (3.8-10.6) 07/19/20 07: RBC 4.72 m/uL (4.30-5.90) 07/19/20 07:22 Hgb 16.2 gm/dL (13.0-17.5) 07/19/20 07:22 Hct 48.0 % (39.0-53.0) 07/19/20 07:22 MCV 101.6 fL (80.0-100.0) H 07/19/20 07:22 MCH 34.2 pg (25.0-35.0) 07/19/20 07: MCHC 33.7 g/dL (31.0-37.0) 07/19/20 07:22 RDW 12.6 % (11.5-15.5) 07/19/20 07:22 Plt Count 197 k/uL (150-450) 07/19/20 07:22 MPV 6.8 07/19/20 07:22 Neutrophils % 64 % 07/19/20 07:22 Lymphocytes % 22 % 07/19/20 07:22 Monocytes % 9 % 07/19/20 07: Eosinophils % 3 % 07/19/20 07: Basophils % 0 % 07/19/20 07:22 Neutrophils # 2.9 k/uL (1.3-7.7) 07/19/20 07:22 Lymphocytes # 1.0 k/uL (1.0-4.8) 07/19/20 07: Monocytes # 0.4 k/uL (0-1.0) 07/19/20 07:22 Eosinophils # 0.1 k/uL (0-0.7) 07/19/20 07: Basophils # 0.0 k/uL (0-0.2) 07/19/20 07:22 Sodium 134 mmol/L (137-145) L 07/19/20 07:22 Potassium 5.6 mmol/L (3.5-5.1) H 07/19/20 07:22 Chloride 99 mmol/L (98-107) 07/19/20 07:22 Carbon Dioxide 33 mmol/L (22-30) H 07/19/20 07:22 Anion Gap 2 mmol/L 07/19/20 07:22 BUN 12 mg/dL (9-20) 07/19/20 07: Creatinine 0.75 mg/dL (0.66-1.25) 07/19/20 07:22 Est GFR (CKD-EPI)AfAm >90 (>60 ml/min/1.73 sqM) 07/19/20 07: Est GFR (CKD-EPI)NonAf >90 (>60 ml/min/1.73 sqM) 07/19/20 07: Glucose 91 mg/dL (74-99) 07/19/20 07: Calcium 9.1 mg/dL (8.4-10.2) 07/19/20 07: Total Bilirubin 0.5 mg/dL (0.2-1.3) 07/19/20 07: Conjugated Bilirubin 0.0 mg/dL (0.0-0.3) 07/19/20 07: Unconjugated Bilirubin 0.3 mg/dL (0.0-1.1) 07/19/20 07: Delta Bilirubin 0.2 mg/dL (0.0-0.2) 07/19/20 07:22 AST 32 U/L (17-59) 07/19/20 07: ALT 31 U/L (4-49) 07/19/20 07: Alkaline Phosphatase 73 U/L (38-126) 07/19/20 07:22 Total Protein 6.9 g/dL (6.3-8.2) 07/19/20 07: Albumin 3.7 g/dL (3.5-5.0) 07/19/20 07:22 Triglycerides 92 mg/dL (<150) 07/19/20 07:22 Cholesterol 107 mg/dL (<200) 07/19/20 07:22 LDL Cholesterol, Calc 56 mg/dL (0-99) 07/19/20 07:22 HDL Cholesterol 33 mg/dL (40-60) L 07/19/20 07:22 TSH 1.430 mIU/L (0.465-4.680) 07/19/20 07:22 Urine Opiates Screen Not Detected (NotDetected) 07/18/20 18:20 Ur Oxycodone Screen Not Detected (NotDetected) 07/18/20 18:20 Urine Methadone Screen Not Detected (NotDetected) 07/18/20 18:20 Ur Propoxyphene Screen Not Detected (NotDetected) 07/18/20 18:20 Ur Barbiturates Screen Not Detected (NotDetected) 07/18/20 18:20 Valproic Acid 27.5 ug/mL 07/19/20 07:22 U Tricyclic Antidepress Not Detected (NotDetected) 07/18/20 18:20 Ur Phencyclidine Scrn Not Detected (NotDetected) 07/18/20 18:20 Ur Amphetamines Screen Not Detected (NotDetected) 07/18/20 18:20 U Methamphetamines Scrn Not Detected (NotDetected) 07/18/20 18:20 U Benzodiazepines Scrn Not Detected (NotDetected) 07/18/20 18:20 Urine Cocaine Screen Not Detected (NotDetected) 07/18/20 18:20 U Marijuana (THC) Screen Detected (NotDetected) H 07/18/20 18:20 Coronavirus (PCR) Not Detected (Not Detectd) 07/18/20 01:25 07/19/20 10:39 IDENTIFYING DATA: Patient is a 50-year-old, , male, who was admitted to the psychiatric unit involuntarily. [facility] has filed a demand as the patient was started under deferral status but has not been adherent with his treatment. HPI: Patient presented to the hospital on 07/18/2020 brought in by police due to a pickup order patient was most recently admitted to the psychiatric unit from 06/13/2020 to 06/19/2020. As per petition that accompanied the patient, the uniform patrol police officer noted that the patient has been stating that he has been born in [birth year]00s and has been very delusional. He also writes that the patient believes his fingerprints were sold to the Russians. As noted in the clinical certificate becoming the patient, the physician writes that the patient appears to be disorganized and expressing significant delusional thought content. Upon evaluation, the patient expresses that he is currently admitted because he is lacking money after staying in a motel. It was reported that the patient has been going into other people's belongings and being very agitated. The patient reports that he believes that he has been taken advantage of and was robbed of his money. It is reported the patient has been nonadherent with his medications but the patient vehemently states that he has been. Currently, the patient is not endorsing any suicidal or homicidal ideation, intention, and/or plan. He is not reporting any auditory or visual hallucinations. He is denying any delusional thought content at this time. He denies any paranoia, bizarre delusions, thought insertion, thought deletion, thought projection, or adventist preoccupation. He denies any recent substance abuse aside from his marijuana which he states he uses for medical reasons. He denies any increased goal- directed behavior or periods of excessive energy. He states that his been sleeping well and eating well. Since he was last discharge, the patient continues to have a lack of stable housing. He has been staying with different friends, his mother, and different motels and hotels in town. PAST PSYCHIATRIC HISTORY: Patient was most recently admitted to the psychiatric unit from 06/13/2020 to 06/19/2020. The patient has had approximately 30 psychiatric admissions. He has been diagnosed with schizoaffective disorder, and polysubstance abuse. He has had multiple trials of psychiatric medications including Celexa, Invega, Depakote, and during his last admission was discharged on a regimen of Clozaril, Cogentin, and Depakote. The patient also has been receiving Prolixin Decanoate 25 mg IM every 7 days. Patient follows up with [facility] in the outpatient setting. PMH: Myocardial infarction, hypertension, and chronic back pain. Multiple back surgeries. ALLERGIES: Cephalexin monohydrate CHEMICAL DEPENDENCY HISTORY: The patient has a significant history of polysubstance use disorder including opiate use, alcohol use, methamphetamine use, benzodiazepine use, and cannabis. He has had previous inpatient rehabilitation admissions. She has also been previously prescribed methadone and Suboxone. He denies any use of illicit substances aside from marijuana since his last discharge. FAMILY PSYCHIATRIC/SUBSTANCE USE HISTORY: Patient reports his mother has depression. SOCIAL HISTORY: Patient was born in [facility]. Raised in [place], [place] and moved to [place] when he was 15 years old. The patient has been and twice. He has 2 adult children and 3 grandchildren. He currently receives Social Security. He does not have a guardian. He reports 11th grade education and GED. He currently is unemployed and has no stable housing. Denies any legal issues. Denies being on probation or parole. He denies any history. MENTAL STATUS EXAM: General Appearance: Patient appears to be stated age is alert, directable, and attempts to cooperate. Patient has long villarreal hair. Has multiple tattoos. Hygiene and grooming appear fair. Behavior: Patient is seated without any agitated behavior. Psychomotor activity appears normal. Eye contact is appropriate. Speech: Patient's speech is fluent and nonpressured. Mood/Affect: Patient reports their mood is "okay," affect is congruent and euthymic. Suicidality/Homicidality: Patient is not endorsing any suicidal or homicidal ideation, intention, and/or plan. Perceptions: The patient is not endorsing any auditory or visual hallucinations. Though content/process: Currently, the patient is not endorsing any significant delusional thought content despite what was written in the petition and certificate. Memory and concentration: AOX3, grossly intact for the purposes of this session. Can spell "WORLD" backwards Judgment and insight: poor STRENGTHS/WEAKNESSES: Strength is that the patient has stable income, relatively good physical health, and is actively involved with [facility]. Weakness is that patient has a significant history of chronic and persistent mental illness, substance abuse problems, and unstable housing INTELLECT: average IMPRESSIONS: Schizoaffective disorder, bipolar type Methamphetamine use disorder Opiate use disorder, severe Alcohol use disorder, severe Cannabis use disorder PLAN: -Patient is admitted under involuntary status to [facility] for stabilization of psychi atric symptoms and safety. [facility] has filed a demand for a court hearing. Depakote level on admission was 27.5 CBC w/ diff without significant findings - Absolute neutrophil count within normal limits. Dr Aguilar wishes to speak with Dr Meeks to coordinate care. -Medications : We will restart his Depakote 1000 mg by mouth at bedtime Restart Clozaril 150 mg by mouth at bedtime (patient reports missing only one dose) The patient is also receiving Prolixin Decanoate 25 mg IM every 7 days. Reportedly the patient last received this medication on 07/12/2020. Will hold at this time until we get records from [facility]. Continue medical medications Norvasc, Lipitor and metoprolol -Ativan and Haldol PRN for agitation/aggression -Patient was counselled on substance abuse -Patient was informed of the risks, benefits and side effects of the medication and patient verbally consented to taking the medications. -Internal Medicine consult to perform medical evaluation and physical. -NRT - nicotine patch -SW on board for discharge planning. Encourage patient to participate in groups to work on coping skills. 07/19/20 10:49 07/19/20 11:03
[2020-07-19 17:16] LABS: Hemoglobin A1C 5.6 % (4.0-6.0)
[2020-07-19] MEDS: DIVALPROEX ER 500 MG TAB.ER.24H PO SCH (20:59)
[2020-07-19] MEDS: ATORVASTATIN 80 MG TAB PO SCH (20:59)
[2020-07-19] MEDS ORDERED: cloZAPine 100 MG TAB PO SCH (21:00)
--- NOTE | 2020-07-20 00:14 | P.CONS ---
History of Present Illness - Reason for Consult Consult date: 07/20/20 - History of Present Illness Patient is a 50-year-old male with a PMH of bipolar disorder and hypertension who was brought into the emergency room after pickup order. The patient was admitted to the mental health unit where he was seen and evaluated at the bedside. Patient reported feeling better since admission. Denied active complaints. He denied chest discomfort, shortness of breath, fever, chills, cough, nausea, vomiting, abdominal pain. Patient reports noncompliance with his medications at home due to his poor living situation. Discussed with patient in great detail regarding importance of medication compliance. Patient's laboratory evaluation was reviewed. Review of Systems Pertinent positives and negatives as discussed in HPI, a complete review of systems was performed and all other systems are negative. Past Medical History Past Medical History: Hypertension, Myocardial Infarction ([place]) Additional Past Medical History / Comment(s): chronic back pain Last Myocardial Infarction Date:: 05/10/16 History of Any Multi-Drug Resistant Organisms: MRSA Year Discovered:: 2011 MDRO Source:: eye Past Surgical History: Heart Catheterization With Stent Additional Past Surgical History / Comment(s): back surgery Past Anesthesia/Blood Transfusion Reactions: No Reported Reaction Date of Last Stent Placement:: 0 Past Psychological History: Bipolar Smoking Status: Current every day smoker Past Alcohol Use History: None Reported Past Drug Use History: Heroin, Marijuana - Past Family History Mother Family Medical History: Hypertension Brother(s) Family Medical History: Myocardial Infarction ([place]) Additional Family Medical History / Comment(s): from [place] at age 38 Medications and Allergies Home Medications Medication Instructions Recorded Confirmed Type Atorvastatin [Lipitor] 80 mg PO HS #30 tab 05/13/16 07/18/20 Rx Metoprolol Tartrate [Lopressor] 25 mg PO BID #60 tab 05/13/16 07/18/20 Rx lisinopriL [Zestril] 10 mg PO BID #60 tab 05/13/16 07/18/20 Rx Ondansetron HCl [Zofran] 4 mg PO Q4H PRN 12/07/18 07/18/20 History Pregabalin [Lyrica] 75 mg PO BID 12/07/18 07/18/20 History amLODIPine [Norvasc] 5 mg PO DAILY 12/07/18 07/18/20 History Divalproex ER [Depakote ER] 1,000 mg PO HS #60 tab.er.24h 06/19/20 07/18/20 Rx Mupirocin 2% Oint [Bactroban 2% 1 applic TOPICAL TID #1 applic 06/19/20 07/18/20 Rx Oint] Nitroglycerin Sl Tabs [Nitrostat] 0.4 mg SUBLINGUAL Q5M PRN #25 tab 06/19/20 07/18/20 Rx Benztropine Mesylate [Cogentin] 2 mg PO TID PRN 07/18/20 07/18/20 History cloZAPine [Clozaril] 150 mg PO HS 07/18/20 07/18/20 History fluPHENAZine decanoate [Prolixin 25 mg IM Q7D 07/18/20 07/18/20 History Decanoate] Allergies Allergy/AdvReac Type Severity Reaction Status Date / Time cephalexin monohydrate AdvReac Vomiting Verified 07/18/20 17:10 [From Keflex] Physical Exam Vitals: Vital Signs Temp Pulse Pulse Resp BP BP Pulse Ox 07/19/20 09:01 101 H 20 122/72 07/19/20 02:50 98.4 F 96 20 127/75 97 Intake and Output 07/19/20 07/19/20 07/20/20 14:59 22:59 06:59 Other: Weight 71.668 kg General: non toxic, no distress, appears at stated age, normal weight Derm: no unusual rashes/lesions no unusual ecchymoses, warm, dry Head: atraumatic, normocephalic, symmetric Eyes: EOMI, no lid lag, anicteric sclera, pupils equal round reactive to light ENT: Nose and ears atraumatic, no thrush, no pharyngeal erythema Neck: No thyromegaly, no cervical lymphadenopathy, trachea midline, supple Mouth: no lip lesion, mucus membranes moist Cardiovascular: S1S2 reg, no murmur, positive posterior tibial pulse bilateral, no edema, capillary refill less than 2 seconds Lungs: CTA bilateral, no rhonchi, no rales , no accessory muscle use Abdominal: soft, nontender to palpation, no guarding, no appreciable organomegaly, normal bowel sounds Ext: no gross muscle atrophy, no focal deficits, no contractures, Neuro: CN II-XI grossly intact, light touch intact all 4 extremities, finger to nose within normal limits, Psych: Alert, oriented, appropriate affect Results CBC & Chem 7: 07/19/20 07:22 07/19/20 07:22 Labs: Abnormal Lab Results - Last 24 Hours (Table) 07/19/20 07/19/20 Range/Units 07:22 07:22 MCV 101.6 H (80.0-100.0) fL Sodium 134 L (137-145) mmol/L Potassium 5.6 H (3.5-5.1) mmol/L Carbon Dioxide 33 H (22-30) mmol/L HDL Cholesterol 33 L (40-60) mg/dL Assessment and Plan Plan: Hyperkalemia -Home lisinopril discontinued -Recheck in a.m. -Obtain EKG Hypertension -Continue with remaining home medications Bipolar disorder -As per psychiatry
[2020-07-20] MEDS: NICOTINE 21MG/24HR PATCH TRANSDERM SCH (08:50)
[2020-07-20] MEDS: amLODIPine 5 MG TAB PO SCH (08:50)
[2020-07-20] MEDS: METOPROLOL TARTRATE 25 MG TAB PO SCH ×2 (08:50→21:27)
[2020-07-20 08:51] LABS: African American GFR (CKD) >90 (>60 ml/min/1.73 sqM); Anion Gap 4 mmol/L; Blood Urea Nitrogen 15 mg/dL (9-20); Calcium 9.1 mg/dL (8.4-10.2); Carbon Dioxide 31 mmol/L (22-30); Chloride 102 mmol/L (98-107); Glucose 103 mg/dL (74-99); Non-African American GFR(CKD) >90 (>60 ml/min/1.73 sqM); Potassium 5.2 mmol/L (3.5-5.1); Sodium 137 mmol/L (137-145)
[2020-07-20] MEDS ORDERED: fluPHENAZine DECANOATE 25 MG/ML 5ML MDV IM ONE (09:30)
--- NOTE | 2020-07-20 14:14 | P.PN ---
Progress Note - Text Progress Note Date: 07/20/20 Clinical Problems: schizoaffective disorder bipolar type, methamphetamine use disorder, cannabis use disorder, opiate use disorder severe in sustained remission, alcohol use disorder severe in remission, chronic back pain Interim history: I reviewed the medical record including a email communication from [facility] and interviewed the patient. 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 He is readmitted involuntarily on a demand because he was not adherent with treatment. The email from [facility] indicates that his Prolixin Decanoate was increased to 50 mg every 7 days and was due on 07/19/2020. Dr. Aguilar also increase his clozapine to 300 mg at bedtime. Syd perseverated about discharge. He alleged that he has an appointment with a sales and marketing representative from [employer] on the . He is requesting to remove his mother is payee because she has been taking money from him. He seemed to understand that he could not have an appointment with Social Security office on the because the social security offices are not open on Wednesday. His admission UDS was positive only for marijuana. Mental status exam: He presented as a short 49-year-old male with male pattern balding and long hair. He made eye contact and appeared to attend to the interview. He has slow but steady gait. He had a blunted facial expression. He was alert and oriented to person, place and time. He showed no abnormality of psychomotor activity. His speech was spontaneous, slightly pressured but with normal volume. His affect was stable and appropriate. He denied suicidal ideation or wishes. His thinking was concrete but his associations were not fully coherent and logical. He denied hallucinations and did not appear to be responding to internal stimuli. Assessment: His thinking is disorganized. He is not preoccupied by the grandi ose or delusional beliefs he expressed during the prior hospitalization. Plan: Continue inpatient treatment. Safety precautions. Increase clozapine to 300 mg at bedtime. Continue Depakote ER 1000 mg at bedtime. Prolixin Decanoate 50 mg IM every 7 days. Continue Norvasc and Lipitor. Ativan Haldol for anxiety, agitation or aggression. Encourage participation in therapeutic groups and activities. Evaluate clinical status response to treatment daily basis.
[2020-07-20] MEDS: LORazepam 1 MG TAB PO PRN (16:29)
[2020-07-20] MEDS: DIVALPROEX ER 500 MG TAB.ER.24H PO SCH (21:27)
[2020-07-20] MEDS: cloZAPine 100 MG TAB PO SCH (21:27)
[2020-07-20] MEDS: BENZTROPINE MESYLATE 0.5 MG TAB PO SCH (21:28)
[2020-07-21] MEDS: ATORVASTATIN 80 MG TAB PO SCH (01:33)
[2020-07-21] MEDS: NICOTINE 21MG/24HR PATCH TRANSDERM SCH (08:32)
[2020-07-21] MEDS: BENZTROPINE MESYLATE 0.5 MG TAB PO SCH ×2 (08:33→20:58)
[2020-07-21] MEDS: METOPROLOL TARTRATE 25 MG TAB PO SCH ×2 (08:33→20:57)
[2020-07-21] MEDS: amLODIPine 5 MG TAB PO SCH (08:33)
[2020-07-21] MEDS: ACETAMINOPHEN TAB 325 MG TAB PO PRN ×2 (09:04→23:11)
--- NOTE | 2020-07-21 11:52 | P.PN ---
Progress Note - Text Progress Note Date: 07/21/20 Clinical Problems: schizoaffective disorder bipolar type, methamphetamine use disorder, cannabis use disorder, opiate use disorder severe in sustained remission, alcohol use disorder severe in remission, chronic back pain Interim history: I reviewed the medical record and interviewed the patient. He remains fixated on discharge but accepted my explanation that he would not be discharged without coordinated plans with [facility] and we would not be able to accomplish this until at least Wednesday. We talked about the circumstances that led to this hospitalization. After he left the hospital and June he lived in [facility]. From his perspective, for some unexplained reason, his case supervisor initiated this hospitalization. He denied problems or concerns other than a need for housing alternative because he cannot live with his mother. During our interview he began to talk about future plans. 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 He slept 7 hours last night. He attends therapeutic groups and activities with therapist described him as fragmented, disorganized and poorly focused. Mental status exam: He presented as a short 49-year-old male with male pattern balding and long hair. He made eye contact and appeared to attend to the interview. He has slow but steady gait. He had a blunted but bright facial expression. He was alert and oriented to person, place and time. He s howed no abnormality of psychomotor activity. His speech was spontaneous, slightly pressured but with normal volume. His affect was stable and appropriate. He denied suicidal ideation or wishes. His thinking was concrete but his associations were not fully coherent and logical. He denied hallucinations and did not appear to be responding to internal stimuli. Assessment: Overall he is severely mentally ill and unchanged from admission. Plan: Continue inpatient treatment. Safety precautions. Continue clozapine to 300 mg at bedtime. Continue Depakote ER 1000 mg at bedtime. Prolixin Decanoate 50 mg IM every 7 days. Cogentin 0.5 mg twice a day for the treatment of sialorrhea. Continue Norvasc and Lipitor. Ativan Haldol for anxiety, agitation or aggression. Encourage participation in therapeutic groups and activities. Evaluate clinical status response to treatment daily basis.
[2020-07-21] MEDS ORDERED: SODIUM POLYSTYRENE SULFONATE 15 GM/60 ML BOTTLE PO STA (12:11)
[2020-07-21] MEDS: cloZAPine 100 MG TAB PO SCH (20:57)
[2020-07-21] MEDS: ATORVASTATIN 40 MG TAB PO SCH (20:58)
[2020-07-21] MEDS: DIVALPROEX ER 500 MG TAB.ER.24H PO SCH (20:58)
[2020-07-21] MEDS: LORazepam 1 MG TAB PO PRN (23:11)
[2020-07-21] MEDS: PREGABALIN 75 MG CAP PO SCH (23:28)
[2020-07-22 08:46] LABS: Clozapine (Clozaril) <25 ng/mL (200-700); Norclozapine <25 ng/mL (200-700)
[2020-07-22] MEDS: METOPROLOL TARTRATE 25 MG TAB PO SCH ×2 (09:00→22:19)
[2020-07-22] MEDS: NICOTINE 21MG/24HR PATCH TRANSDERM SCH (09:00)
[2020-07-22] MEDS: PREGABALIN 75 MG CAP PO SCH (09:00)
[2020-07-22] MEDS: amLODIPine 5 MG TAB PO SCH (09:00)
[2020-07-22] MEDS: BENZTROPINE MESYLATE 0.5 MG TAB PO SCH ×2 (09:00→22:19)
[2020-07-22] MEDS ORDERED: LORazepam 2 MG/ML INJ IM PRN (10:00)
[2020-07-22] MEDS ORDERED: LORazepam 1 MG TAB PO PRN (10:00)
--- NOTE | 2020-07-22 11:09 | P.PN ---
Progress Note - Text Progress Note Date: 07/22/20 Clinical Problems: schizoaffective disorder bipolar type, methamphetamine use disorder, cannabis use disorder, opiate use disorder severe, alcohol use disorder severe in remission, chronic back pain Interim history: I reviewed the medical record and interviewed the patient. I also spoke with his outpatient psychiatrist, Dr. Aguilar, from [facility]. Syd complained of oversedation, drooling and lightheadedness that he attributed to the current dose of his psychotropic medications. However, I noticed that he received 2 mg of Ativan yesterday at 2300 or complaints of insomnia. He also complained of "withdrawal" to nursing yesterday. The charge nurse reviewed his MAPS and noticed that he had been prescribed Lyrica by an outpatient provider. I agreed to continue Lyrica 75 mg twice a day. Dr. Aguilar described Syd is a "challenging patient." He has been struggling with keeping Syd compliant with medication and away from opiate pain medications. He requested the ACT team administer the medications daily and assure that he actually swallowed the medication in their presence. Dr. Aguilar is also concerned about his drug use. Syd receiving high doses of narcotic pain medications for several years for complaints of nonspecific back pain. I reviewed the MAPS and confirmed that Dr. Ocampo had been prescribing 30 mg of hydrocodone, 60 mg of morphine and 300 mg of pregabalin daily from at least the last [address] Aguilar and the ACT team intervened with the provider who stopped prescribing hydrocodone and morphine in May 2020. However, he continued prescribing the pregabalin. Syd also unable to maintain stable residence and has been living from [facility]. He requested to keep Syd inpatient until she could arrange placement at the [facility]. He slept 7 hours last night. He attends therapeutic groups and activities with therapist described him as fragmented, disorganized and poorly focused. Mental status exam: He presented as a short 49-year-old male who appeared overly sedated. He made eye contact and appeared to attend to the interview. He has slow but steady gait. He had a blunted but bright facial expression. He showed no abnormality of psychomotor activity. His speech was slow and slurred. His affect was blunted. He denied suicidal ideation or wishes. His thinking was concrete but his associations were not fully coherent and logical. He denied hallucinations and did not appear to be responding to internal stimuli. Assessment: He is sedated most likely from Ativan and Lyrica and addition to his psychotropic medications. Plan: Continue inpatient treatment. Safety precautions. Decrease clozapine to 200 mg at bedtime. Taper then discontinue Lyrica. Reduce when necessary Ativan to 1 mg and gradually tapered the dose. Continue Depakote ER 1000 mg at bedtime, Prolixin Decanoate 50 mg IM every 7 days and Cogentin 0.5 mg twice a day for the treatment of sialorrhea. Continue Norvasc and Lipitor. Ativan Haldol for anxiety, agitation or aggression. Encourage participation in therapeutic groups and activities. Evaluate clinical status response to treatment daily basis.
[2020-07-22 16:38] LABS: Appearance,Urine Clear (Clear); Bilirubin,Urine Negative (Negative); Blood,Urine Negative (Negative); Color,Urine Yellow; Glucose,Urine (UA) Negative (Negative); Ketones,Urine Trace (Negative); Leukocyte Esterase,Urine Negative (Negative); Nitrite,Urine Negative (Negative); PH, Urine 6.5 (5.0-8.0); Protein,Urine Negative (Negative); Specific Gravity,Urine 1.016 (1.001-1.035); Urobilinogen,Urine <2.0 mg/dL (<2.0)
[2020-07-22] MEDS: ATORVASTATIN 40 MG TAB PO SCH (22:18)
[2020-07-22] MEDS: cloZAPine 100 MG TAB PO SCH (22:19)
[2020-07-22] MEDS: DIVALPROEX ER 500 MG TAB.ER.24H PO SCH (22:19)
[2020-07-23] MEDS: NICOTINE 21MG/24HR PATCH TRANSDERM SCH (08:37)
[2020-07-23] MEDS: METOPROLOL TARTRATE 25 MG TAB PO SCH ×2 (08:38→20:04)
[2020-07-23] MEDS: BENZTROPINE MESYLATE 0.5 MG TAB PO SCH ×2 (08:38→20:04)
[2020-07-23] MEDS: amLODIPine 5 MG TAB PO SCH (08:38)
[2020-07-23] MEDS: PREGABALIN 75 MG CAP PO SCH (08:51)
--- NOTE | 2020-07-23 12:17 | P.PN ---
Progress Note - Text Progress Note Date: 07/23/20 Clinical Problems: schizoaffective disorder bipolar type, methamphetamine use disorder, cannabis use disorder, opiate use disorder severe, alcohol use disorder severe in remission, chronic back pain Interim history: I reviewed the medical record, interviewed the patient and discuss his treatment and treatment plan during team meeting. I also discussed the treatment plan with Dr. Aguilar at [facility]. Syd only concern was discharge. The sedation has improved with a decreased dose of clozapine. I spoke to Dr. Aguilar both continue to clozapine in addition to Prolixin Decanoate. He remains concerned about the chronicity of the patient's psychosis and the struggles that the [facility] health team as experience and management him as an outpatient. He would like to continue both these medications at least until he monitored in a residential program. He slept 6 hours last night. He attends therapeutic groups and activities with therapist described him as fragmented, disorganized and poorly focused. He has clozapine and norlozapine serum levels were less than 25 on admission indicating that he is noncompliant with outpatient dose of clozapine. Mental status exam: He presented as a short 49-year-old male who was pleasant and cooperative. He made eye contact and appeared to attend to the interview. He has slow but steady gait. He had a bright facial expression. He showed no abnormality of psychomotor activity. His speech was spontaneous with normal rate and rhythm. His affect was right. He denied suicidal ideation or wishes. His thinking was concrete but his associations were goal- directed. He denied hallucinations and did not appear to be responding to internal stimuli. Assessment: The sedation has improved with decreased dose of clozapine and Lyrica. Plan: Continue inpatient treatment. Safety precautions. Continue clozapine to 200 mg at bedtime. Taper then discontinue Lyrica. Continue Ativan to 1 mg and gradually, monitor the frequency of use and tapered the dose before discharge. Continue Depakote ER 1000 mg at bedtime, change Prolixin order to her to 25 mg IM every 7 days. Continue Cogentin 0.5 mg twice a day for treatment of sialorrhea. Continue Norvasc and Lipitor. Ativan Haldol for anxiety, agitation or aggression. Encourage participation in therapeutic groups and activities. Evaluate clinical status response to treatment daily basis.
[2020-07-23] MEDS: DIVALPROEX ER 500 MG TAB.ER.24H PO SCH (20:04)
[2020-07-23] MEDS: ATORVASTATIN 40 MG TAB PO SCH (20:04)
[2020-07-23] MEDS: cloZAPine 100 MG TAB PO SCH (20:04)
[2020-07-24 07:48] LABS: Basophils % (A) 1 %; Eosinophils # (A) 0.3 k/uL (0-0.7); Eosinophils % (A) 6 %; HCT 44.2 % (39.0-53.0); Lymphocytes # (A) 1.3 k/uL (1.0-4.8); Lymphocytes % (A) 28 %; MCH 34.1 pg (25.0-35.0); MCHC 33.9 g/dL (31.0-37.0); MCV 100.7 fL (80.0-100.0); Mean Platelet Volume 7.4; Monocytes # (A) 0.4 k/uL (0-1.0); Monocytes % (A) 10 %; Neutrophils # (A) 2.4 k/uL (1.3-7.7); Neutrophils % (A) 53 %; Platelet Count 156 k/uL (150-450); RBC 4.39 m/uL (4.30-5.90); RDW 12.6 % (11.5-15.5); WBC 4.5 k/uL (3.8-10.6)
[2020-07-24] MEDS: NICOTINE 21MG/24HR PATCH TRANSDERM SCH (08:54)
[2020-07-24] MEDS: BENZTROPINE MESYLATE 0.5 MG TAB PO SCH ×2 (08:54→21:02)
[2020-07-24] MEDS: METOPROLOL TARTRATE 25 MG TAB PO SCH ×2 (08:54→21:02)
[2020-07-24] MEDS: PREGABALIN 75 MG CAP PO SCH (08:54)
[2020-07-24] MEDS: amLODIPine 5 MG TAB PO SCH (08:54)
[2020-07-24] MEDS: DIVALPROEX ER 500 MG TAB.ER.24H PO SCH (21:02)
[2020-07-24] MEDS: cloZAPine 100 MG TAB PO SCH (21:02)
[2020-07-24] MEDS: ATORVASTATIN 40 MG TAB PO SCH (21:02)
[2020-07-25 06:40] VITALS: RESP 18
[2020-07-25] MEDS: amLODIPine 5 MG TAB PO SCH (09:04)
[2020-07-25] MEDS: METOPROLOL TARTRATE 25 MG TAB PO SCH ×2 (09:04→20:56)
[2020-07-25] MEDS: BENZTROPINE MESYLATE 0.5 MG TAB PO SCH ×2 (09:04→20:56)
[2020-07-25] MEDS: NICOTINE 21MG/24HR PATCH TRANSDERM SCH (09:04)
[2020-07-25] MEDS: PREGABALIN 75 MG CAP PO SCH (09:05)
--- NOTE | 2020-07-25 11:07 | P.PN ---
Progress Note - Text Progress Note Date: 07/24/20 Clinical Problems: Schizoaffective disorder bipolar type, methamphetamine use disorder, cannabis use disorder, opiate use disorder severe, alcohol use disorder severe in remission, chronic back pain Interim history: I reviewed the medical record, interviewed the patient and discuss his treatment and treatment plan during team meeting. Syd remains focused on discharge. I explained my conversation with Dr. Aguilar emphasizing that [facility] requested that he made in hospital until they secure a supervised residential home. He denied feeling depressed or having thoughts of or suicide. He denied experiencing hallucinations, paranoia or thought disturbances. He slept 7 hours last night. He attends therapeutic groups and activities with therapist described him as fragmented, disorganized and poorly focused. Mental status exam: He presented as a short 49-year-old male who was pleasant and cooperative. He made eye contact and appeared to attend to the interview. He has slow but steady gait. He had a bright facial expression. He showed no abnormality of psychomotor activity. His speech was spontaneous with normal rate and rhythm. His affect was right. He denied suicidal ideation or wishes. His thinking was concrete but his associations were goal- directed. He denied hallucinations and did not appear to be responding to internal stimuli. Assessment: He is chronically mentally ill and has a chronic problem with abuse of multiple drugs. He requires supervised residential placement as well as supervision of compliance with medication and abstinence from drugs of abuse. Plan: Continue inpatient treatment. Safety precautions. Continue clozapine to 200 mg at bedtime. Taper then discontinue Lyrica. Continue Ativan to 1 mg and monitor the frequency of use and tapered the dose before discharge. Continue Depakote ER 1000 mg at bedtime, Prolixin decanoate to 25 mg IM every 7 days and Cogentin 0.5 mg twice a day for treatment of sialorrhea. Continue Norvasc and Lipitor. Ativan Haldol for anxiety, agitation or aggression. Encourage participation in therapeutic groups and activities. Evaluate clinical status response to treatment daily basis.
--- NOTE | 2020-07-25 11:10 | P.PN ---
Progress Note - Text Progress Note Date: 07/25/20 Clinical Problems: Schizoaffective disorder bipolar type, methamphetamine use disorder, cannabis use disorder, opiate use disorder severe, alcohol use disorder severe in remission, chronic back pain Interim history: I reviewed the medical record, interviewed the patient and discuss his treatment and treatment plan during team meeting. He was less focused on discharge today than yesterday. I again reviewed the plan recommended by [facility]. He appeared excited about recommendation for placement in a supervised residential program. 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 He slept 7 hours last night. He attends therapeutic groups and activities with therapist described him as fragmented, disorganized and poorly focused. The [employer] is cooperating with [facility] regarding residential placement. Mental status exam: He presented as a short 49-year-old male who was pleasant and cooperative. He made eye contact and appeared to attend to the interview. He has slow but steady gait. He had a bright facial expression. He showed no abnormality of psychomotor activity. His speech was spontaneous with normal rate and rhythm. His affect was right. He denied suicidal ideation or wishes. His thinking was concrete but his associations were goal- directed. He denied hallucinations and did not appear to be responding to internal stimuli. Assessment: He is chronically mentally ill and has a chronic problem with abuse of multiple drugs. He requires supervised residential placement as well as supervision of compliance with medication and abstinence from drugs of abuse. Plan: Continue inpatient treatment. Safety precautions. Continue clozapine to 200 mg at bedtime. Taper then discontinue Lyrica. Continue Ativan to 1 mg and monitor the frequency of use and tapered the dose before discharge. Continue Depakote ER 1000 mg at bedtime, Prolixin decanoate to 25 mg IM every 7 days and Cogentin 0.5 mg twice a day for treatment of sialorrhea. Continue Norvasc and Lipitor. Ativan Haldol for anxiety, agitation or aggression. Encourage participation in therapeutic groups and activities. Evaluate clinical status response to treatment daily basis.
[2020-07-25 15:24] VITALS: BMI 25.1
[2020-07-25] MEDS: ATORVASTATIN 40 MG TAB PO SCH (20:56)
[2020-07-25] MEDS: cloZAPine 100 MG TAB PO SCH (20:56)
[2020-07-25] MEDS: DIVALPROEX ER 500 MG TAB.ER.24H PO SCH (20:56)
[2020-07-26 06:32] VITALS: BP 101/62; PULSE 76; TEMP 97.6
[2020-07-26] MEDS: METOPROLOL TARTRATE 25 MG TAB PO SCH (08:10)
[2020-07-26] MEDS: amLODIPine 5 MG TAB PO SCH (08:10)
[2020-07-26] MEDS: PREGABALIN 75 MG CAP PO SCH (08:10)
[2020-07-26] MEDS: BENZTROPINE MESYLATE 0.5 MG TAB PO SCH (08:10)
[2020-07-26] MEDS: NICOTINE 21MG/24HR PATCH TRANSDERM SCH (08:10)
[2020-07-26] MEDS ORDERED: fluPHENAZine DECANOATE 25 MG/ML 5ML MDV IM SCH (09:00)
--- NOTE | 2020-07-26 10:41 | P.PN ---
Progress Note - Text Progress Note Date: 07/26/20 Clinical Problems: Schizoaffective disorder bipolar type, methamphetamine use disorder, cannabis use disorder, opiate use disorder severe, alcohol use disorder severe in remission, chronic back pain Interim history: I reviewed the medical record, interviewed the patient and discuss his treatment and treatment plan during team meeting. He remains preoccupied with discharge. He asked if I knew when [facility] will find him a supervised residence. During the interview he expressed several overvalued ideas. 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 He agreed to waive and stipulated to the treatment order and will meet with his finance attorney this afternoon. He has been attending therapeutic groups and activities. He is posed no management problems had no episodes of behavioral dyscontrol. He is been compliant with prescribed medications. He slept 6 hours last night. Mental status exam: He presented as a short 49-year-old male who was pleasant and cooperative. He made eye contact and appeared to attend to the interview. He has slow but steady gait. He had a bright facial expression. He showed no abnormality of psychomotor activity. His speech was spontaneous with normal rate and rhythm. His affect was right. He denied suicidal ideation or wishes. His thinking was concrete but his associations were goal- directed. He denied hallucinations and did not appear to be responding to internal stimuli. Assessment: He is chronically mentally ill and has a chronic problem with abuse of multiple drugs. He requires supervised residential placement as well as supervision of compliance with medication and abstinence from drugs of abuse. Plan: Continue inpatient treatment. Safety precautions. Continue clozapine to 200 mg at bedtime. Continue Depakote ER 1000 mg at bedtime, Prolixin decanoate to 25 mg IM every 7 days and Cogentin 0.5 mg twice a day for treatment of sialorrhea. Continue Norvasc and Lipitor. Ativan and Haldol when necessary for anxiety, agitation or aggression. Discharge when a supervised residential placement becomes available. Encourage participation in therapeutic groups and activities. Evaluate clinical status response to treatment daily basis.
== END 2020-07-26 16:36 | disposition home or self-care (01) | DRG 885 ==
LOC: EC 15:23 → 3MHU 07-19 02:27
PROVIDERS: ADMIT Psychiatry & Neurology Psychiatry; ATTEND Psychiatry & Neurology Psychiatry
DX: F25.0 Schizoaffective disorder, bipolar type (principal); F11.21 Opioid dependence, in remission; F12.10 Cannabis abuse, uncomplicated; F15.10 Other stimulant abuse, uncomplicated; F17.210 Nicotine dependence, cigarettes, uncomplicated; G47.00 Insomnia, unspecified; G89.29 Other chronic pain; M54.9 Dorsalgia, unspecified; Z20.828 Contact with and (suspected) exposure to other viral communicable diseases; I10 Essential (primary) hypertension; F10.11 Alcohol abuse, in remission; I25.2 Old myocardial infarction; K11.7 Disturbances of salivary secretion; Z79.899 Other long term (current) drug therapy; Z81.8 Family history of other mental and behavioral disorders; Z82.49 Family history of ischemic heart disease and other diseases of the circulatory system; Z91.19 Patient's noncompliance with other medical treatment and regimen; T42.4X6A Underdosing of benzodiazepines, initial encounter; Z91.128 Patient's intentional underdosing of medication regimen for other reason; R45.1 Restlessness and agitation; Z86.14 Personal history of Methicillin resistant Staphylococcus aureus infection
CPT/HCPCS: 80048; 80053; 80061; 80159; 80164; 80306; 81003; 82075; 82248; 83036; 84132; 84443; 85025; 87635; 93005; 99285

== ENCOUNTER → 2020-08-22 | Outpatient (CLI) | payer MEDICARE, MEDICAID ==
[2020-08-23 12:57] LABS: Clozapine (Clozaril) 65 ng/mL (200-700); Norclozapine 28 ng/mL (200-700)
== END | disposition home or self-care (01) ==
LOC: LABWHC1 10:26
PROVIDERS: ATTEND Psychiatry & Neurology Psychiatry
DX: Z51.81 Encounter for therapeutic drug level monitoring (principal); Z79.899 Other long term (current) drug therapy
CPT/HCPCS: 36415; 80159

== ENCOUNTER 2020-09-09 12:59 | Emergency (ER) | payer MEDICARE, OTHER ==
[2020-09-09 13:32] VITALS: RESP 18
[2020-09-09] MEDS ORDERED: LIDOCAINE 5% PATCH TOPICAL STA (14:32)
[2020-09-09] MEDS ORDERED: HYDROmorphone 0.5 MG/0.5 ML SYRINGE IM STA (14:32)
--- NOTE | 2020-09-09 14:35 | ED ---
General Adult HPI - General Source: patient Mode of arrival: wheelchair Limitations: no limitations <Shar Inman D - Last Filed: 09/09/20 15:08> <SudeepTed mayorga Ivan - Last Filed: 09/09/20 15:34> - General Chief complaint: Fall Stated complaint: Fall Time Seen by Provider: 09/09/20 14:26 - History of Present Illness Initial comments: Dictation was produced using [employer] dictation software. please excuse any grammatical, word or spelling errors. This patient was cared for during a federal and state declared state of emergency secondary to Covid 19 Chief Complaint: 50-year-old male with past medical history of multiple back surgeries presents with back pain History of Present Illness: 50-year-old male past medical history of chronic pain. He was walking to the hospital to visit his mother was admitted. States that while he is walking he makes observed twisting motion. Immediately after this twisting motion he felt significant pain to his lower back. She has past medical history of prior back procedures. She was able to walk however with some pain. He does have history of chronic pain and takes oral morphine on top of oral Welch as provided by his primary care physician. She denies any numbness telemetry and paresthesias to his lower extremities. Denies any bowel or bladder incontinence. No saddle anesthesia. The ROS documented in this emergency department record has been reviewed and confirmed by me. Those systems with pertinent positive or negative responses have been documented in the HPI. All other systems are other negative and/or noncontributory. PHYSICAL EXAM: General Impression: Alert and oriented x3, mild distress to back pain HEENT: Normocephalic atraumatic, extra-ocular movements intact, pupils equal and reactive to light bilaterally, mucous membranes moist. Cardiovascular: Heart regular rate and rhythm Chest: Able to complete full sentences, no retractions, no tachypnea Abdomen: abdomen soft, non-tender, non-distended, no organomegaly Musculoskeletal: Pulses present and equal in all extremities, no peripheral edema Back: Multiple back scars Motor: no focal deficits noted Neurological: CN II-XII grossly intact, no focal motor or sensory deficits noted Skin: Intact with no visualized rashes Psych: Normal affect and mood ED course: 50-year-old male presents with lower back pain after a twisting motion with his walking to the hospital. Vital signs upon arrival are within acceptable limits. UA shows that patient was recently admitted to psychiatry for psychiatric reasons. He does have history of polysubstance abuse including opiates, methamphetamines as well as and marijuana. He was previously prescribed methadone and Suboxone. Patient care signed out to Dr. Patel (Shar Inman) - Related Data Previous Rx's Medication Instructions Recorded Atorvastatin [Lipitor] 80 mg PO HS #30 tab 07/26/20 Benztropine Mesylate [Cogentin] 0.5 mg PO BID #60 tab 07/26/20 Divalproex ER [Depakote ER] 1,000 mg PO HS #60 tab.er.24h 07/26/20 Metoprolol Tartrate [Lopressor] 25 mg PO BID #60 tab 07/26/20 Nicotine 21Mg/24Hr Patch [Habitrol] 1 patch TRANSDERM DAILY #28 patch 07/26/20 amLODIPine [Norvasc] 5 mg PO DAILY #30 tab 07/26/20 cloZAPine [Clozaril] 200 mg PO HS #60 tab 07/26/20 fluPHENAZine decanoate [Prolixin 25 mg IM Q7D #3 ml 07/26/20 Decanoate] HYDROcodone/APAP 5-325MG [Welch 1 tab PO Q6HR PRN #3 tab 09/09/20 5-325] Allergies Allergy/AdvReac Type Severity Reaction Status Date / Time cephalexin monohydrate AdvReac Vomiting Verified 09/09/20 13:29 [From Keflex] Review of Systems ROS Other: All systems not noted in ROS Statement are negative. <Shar Inman - Last Filed: 09/09/20 15:08> ROS Other: All systems not noted in ROS Statement are negative. <Ted Patel - Last Filed: 09/09/20 15:34> ROS Statement: Those systems with pertinent positive or pertinent negative responses have been documented in the HPI. Past Medical History Past Medical History: Hypertension, Myocardial Infarction (CT) Additional Past Medical History / Comment(s): chronic back pain Last Myocardial Infarction Date:: 05/10/16 History of Any Multi-Drug Resistant Organisms: MRSA Date of last positivie culture/infection: 2011 MDRO Source:: eye Past Surgical History: Heart Catheterization With Stent Additional Past Surgical History / Comment(s): back surgery Past Anesthesia/Blood Transfusion Reactions: No Reported Reaction Date of Last Stent Placement:: 0 Past Psychological History: Bipolar Smoking Status: Current every day smoker Past Alcohol Use History: None Reported Past Drug Use History: Heroin, Marijuana - Past Family History Mother Family Medical History: Hypertension Brother(s) Family Medical History: Myocardial Infarction (CT) Additional Family Medical History / Comment(s): from [place] at age 38 <Shar Inman - Last Filed: 09/09/20 15:08> General Exam Limitations: no limitations <Shar Inman - Last Filed: 09/09/20 15:08> Course Vital Signs 09/09/20 13:25 Temperature 98.2 F Pulse Rate 61 Respiratory 18 Rate Blood Pressure 105/66 O2 Sat by Pulse 94 L Oximetry Medical Decision Making <Ted Patel - Last Filed: 09/09/20 15:34> - Medical Decision Making X-ray reviewed, no acute fracture, patient does have an appointment with his neurologist who follows his chronic back pain. His pain is improved in the emergency department. He will be discharged with close outpatient follow-up and return parameters discussed. (Ted Patel) Disposition <Shar Inman - Last Filed: 09/09/20 15:08> Is patient prescribed a controlled substance at d/c from ED?: No Time of Disposition: 15:34 <Ted Patel - Last Filed: 09/09/20 15:34> Clinical Impression: Fall, Lumbar strain Disposition: HOME SELF-CARE Condition: Fair Instructions (If sedation given, give patient instructions): Fall Prevention (ED), Low Back Strain (ED) Prescriptions: HYDROcodone/APAP 5-325MG [Welch 5-325] 1 tab PO Q6HR PRN #3 tab PRN Reason: Pain Referrals: [facility] [Primary Care Provider] - 1-2 days Flavia Moore MD [Medical Doctor] - 1-2 days
--- NOTE | 2020-09-09 15:11 | XR ---
EXAMINATION TYPE: XR lumbar spine 2 or 3V DATE OF EXAM: 09/09/2020 CLINICAL HISTORY: CT lumbar spine January 30, 2019 TECHNIQUE: Frontal and lateral images of the lumbar spine are obtained. COMPARISON: Low back pain after falling injury today. FINDINGS: There are bilateral accessory L1 ribs redemonstrated. Persistent postsurgical change L4-S1 level. Ossific fusion of the posterior elements is redemonstrated. There is interval vertebroplasty of L3 vertebra extending into the adjacent L2-L3 disc space. Persistent severe disc space narrowing L 5-S1 level. Stable satisfactory vertebral body heights and disc space heights above L2-L3 level. Pers istent posterior stimulator device in the mid to lower thoracic spinal canal. No acute displaced frac ture is evident. IMPRESSION: As above.
[2020-09-09 15:49] VITALS: BP 113/76; PULSE 82; TEMP 97.7
== END 2020-09-09 15:49 | disposition home or self-care (01) ==
LOC: EC 12:59 → EEVIPCON 12:59 → EC 15:49
DX: S39.012A Strain of muscle, fascia and tendon of lower back, initial encounter (principal); I10 Essential (primary) hypertension; I25.2 Old myocardial infarction; F17.200 Nicotine dependence, unspecified, uncomplicated; Z95.5 Presence of coronary angioplasty implant and graft; X50.1XXA Overexertion from prolonged static or awkward postures, initial encounter; Y93.01 Activity, walking, marching and hiking
CPT/HCPCS: 72100; 99283; 96372; J1170

== ENCOUNTER → 2020-09-25 | Outpatient (CLI) | payer MEDICARE, OTHER ==
--- NOTE | 2020-09-27 07:39 | CT ---
EXAMINATION TYPE: CT lumbar spine wo con DATE OF EXAM: 09/25/2020 2:43 PM COMPARISON: 01/30/2019 HISTORY: Lumbago CT DLP: 871.7 mGycm Automated exposure control for dose reduction was used. Unenhanced CT of the lumbar spine was performed. Bone and soft tissue window settings are submitted as well as coronal and sagittal reconstructions. L1-L2: Normal disc space height. No disc herniation protrusion or central stenosis. No facet joint arthropathy. No evidence for foraminal encroachment. L2-L3: There is vertebral plasty change noted with extruded methylmethacrylate into the L2-3 disc spa ce. No evidence for progressive loss of height relative to the prior examination which was prevertebr al plasty. No evidence for central stenosis or disc herniation. L3-L4: Vacuum disc noted. Postoperative changes of fusion. Pedicular screws are in place. Alignment i s stable relative to the prior study. Streak artifact limits evaluation. L4-L5: Normal-appearing disc space. Postoperative changes of fusion. Pedicular screws streak artifact limits evaluation. No evidence for disc herniation or central stenosis. In place. L5-S1: There is evidence of fusion at this level. Pedicular screws are in place. Extensive streak art ifact limits evaluation. Stable alignment. IMPRESSION: 1. Stable changes of the lumbar fusion with pedicular screws noted extending from L4 through L5 S1. L imited evaluation given streak artifact. Stable alignment. 2. Interval vertebroplasty at L2 with stable vertebral body height. Extruded methylmethacrylate into the L2-3 disc.
== END | disposition home or self-care (01) ==
LOC: RADCTMAIN 14:16
PROVIDERS: ATTEND Psychiatry & Neurology Neurology
DX: M51.26 Other intervertebral disc displacement, lumbar region (principal); Z88.1 Allergy status to other antibiotic agents
CPT/HCPCS: 72131

== ENCOUNTER 2020-11-25 12:48 | Observation (INO) | payer MEDICARE, OTHER ==
--- NOTE | 2020-11-25 13:58 | ED ---
General Adult HPI - General Chief complaint: Chest Pain Stated complaint: chest pain, ankle injury Time Seen by Provider: 11/25/20 13:38 Source: patient, family, RN notes reviewed, old records reviewed Mode of arrival: wheelchair - History of Present Illness Initial comments: 50-year-old male presenting for evaluation of chest pain and bilateral lower extremity swelling. He has a history of CAD status post stenting. He states that he's had swelling over the past 24 hours. With swelling is bilateral. He does state that he has some pain in his right ankle, denies a specific injury. He also reports intermittent chest pain over the past 24 hours as well. This is currently quite minimal. No vomiting or diarrhea. No fevers. No dyspnea. - Related Data Previous Rx's Medication Instructions Recorded Atorvastatin [Lipitor] 80 mg PO HS #30 tab 07/26/20 Benztropine Mesylate [Cogentin] 0.5 mg PO BID #60 tab 07/26/20 Divalproex ER [Depakote ER] 1,000 mg PO HS #60 tab.er.24h 07/26/20 Metoprolol Tartrate [Lopressor] 25 mg PO BID #60 tab 07/26/20 Nicotine 21Mg/24Hr Patch [Habitrol] 1 patch TRANSDERM DAILY #28 patch 07/26/20 amLODIPine [Norvasc] 5 mg PO DAILY #30 tab 07/26/20 cloZAPine [Clozaril] 200 mg PO HS #60 tab 07/26/20 fluPHENAZine decanoate [Prolixin 25 mg IM Q7D #3 ml 07/26/20 Decanoate] HYDROcodone/APAP 5-325MG [Russell 1 tab PO Q6HR PRN #3 tab 09/09/20 5-325] Allergies Allergy/AdvReac Type Severity Reaction Status Date / Time cephalexin monohydrate AdvReac Vomiting Verified 11/25/20 12:56 [From Keflex] Review of Systems ROS Statement: Those systems with pertinent positive or pertinent negative responses have been documented in the HPI. ROS Other: All systems not noted in ROS Statement are negative. Past Medical History Past Medical History: Hypertension, Myocardial Infarction ([place]) Additional Past Medical History / Comment(s): chronic back pain, foot drop Last Myocardial Infarction Date:: 05/10/16 History of Any Multi-Drug Resistant Organisms: MRSA Date of last positivie culture/infection: 2012 MDRO Source:: eye Past Surgical History: Heart Catheterization With Stent Additional Past Surgical History / Comment(s): back surgery Past Anesthesia/Blood Transfusion Reactions: No Reported Reaction Date of Last Stent Placement:: 0 Past Psychological History: Bipolar, Depression Smoking Status: Current every day smoker Past Alcohol Use History: None Reported Past Drug Use History: Heroin, Marijuana - Past Family History Mother Family Medical History: Hypertension Brother(s) Family Medical History: Myocardial Infarction ([place]) Additional Family Medical History / Comment(s): from [place] at age 38 General Exam General appearance: alert, in no apparent distress Head exam: Present: atraumatic, normocephalic Eye exam: Present: normal appearance, PERRL ENT exam: Present: normal exam Neck exam: Present: normal inspection. Absent: tenderness, meningismus Respiratory exam: Present: normal lung sounds bilaterally. Absent: respiratory distress, wheezes Cardiovascular Exam: Present: regular rate, normal rhythm GI/Abdominal exam: Present: soft. Absent: distended, tenderness, guarding Extremities exam: Present: pedal edema Neurological exam: Present: alert, oriented X3, CN II-XII intact. Absent: motor sensory deficit Psychiatric exam: Present: normal affect, normal mood Skin exam: Present: warm, dry, intact. Absent: cyanosis, diaphoretic Course Vital Signs 11/25/20 12:57 Temperature 97.7 F Pulse Rate 85 Respiratory 18 Rate Blood Pressure 91/60 O2 Sat by Pulse 92 L Oximetry EKG Findings - EKG Comments: EKG Findings:: EKG: Normal sinus rhythm, there is an artifact from a pain stimulator. This is obscuring the baseline in lead 1, lead 3, aVL and aVF predominantly. There is no certain ST segment elevation in the anterior leads or lead 2. No ST segment depression, T waves are upright. Medical Decision Making - Medical Decision Making 50-year-old male presenting for evaluation chest pain and bilateral lower extremity swelling. History of CAD. EKG has artifact secondary to stimulator device however there is no definitive ischemic changes visualized. Initial troponin is negative. He has a normal CBC, normal CMP, chest x-rays negative for acute cardiopulmonary disease. He will be kept in observation for serial cardiac enzymes, telemetry, cardiology consultation. - Lab Data Result diagrams: 11/25/20 13:52 11/25/20 13:52 Lab Results 11/25/20 11/25/20 11/25/20 Range/Units 13:52 13:52 13:52 WBC 6.6 (3.8-10.6) k/uL RBC 4.68 (4.30-5.90) m/uL Hgb 16.2 (13.0-17.5) gm/dL Hct 45.9 (39.0-53.0) % MCV 98.0 (80.0-100.0) fL MCH 34.5 (25.0-35.0) pg MCHC 35.2 (31.0-37.0) g/dL RDW 12.4 (11.5-15.5) % Plt Count 152 (150-450) k/uL MPV 7.7 Neutrophils % 70 % Lymphocytes % 18 % Monocytes % 7 % Eosinophils % 4 % Basophils % 0 % Neutrophils # 4.6 (1.3-7.7) k/uL Lymphocytes # 1.2 (1.0-4.8) k/uL Monocytes # 0.5 (0-1.0) k/uL Eosinophils # 0.2 (0-0.7) k/uL Basophils # 0.0 (0-0.2) k/uL PT 9.9 (9.0-12.0) sec INR 0.9 (<1.2) APTT 24.2 (22.0-30.0) sec Sodium 137 (137-145) mmol/L Potassium 4.8 (3.5-5.1) mmol/L Chloride 101 (98-107) mmol/L Carbon Dioxide 31 H (22-30) mmol/L Anion Gap 5 mmol/L BUN 16 (9-20) mg/dL Creatinine 1.10 (0.66-1.25) mg/dL Est GFR (CKD-EPI)AfAm >90 (>60 ml/min/1.73 sqM) Est GFR (CKD-EPI)NonAf 78 (>60 ml/min/1.73 sqM) Glucose 82 (74-99) mg/dL Calcium 9.2 (8.4-10.2) mg/dL Magnesium 2.1 (1.6-2.3) mg/dL Total Bilirubin 0.3 (0.2-1.3) mg/dL AST 25 (17-59) U/L ALT 16 (4-49) U/L Alkaline Phosphatase 90 (38-126) U/L Troponin I (0.000-0.034) ng/mL NT-Pro-B Natriuret Pep pg/mL Total Protein 6.6 (6.3-8.2) g/dL Albumin 3.9 (3.5-5.0) g/dL 11/25/20 11/25/20 Range/Units 13:52 13:52 WBC (3.8-10.6) k/uL RBC (4.30-5.90) m/uL Hgb (13.0-17.5) gm/dL Hct (39.0-53.0) % MCV (80.0-100.0) fL MCH (25.0-35.0) pg MCHC (31.0-37.0) g/dL RDW (11.5-15.5) % Plt Count (150-450) k/uL MPV Neutrophils % % Lymphocytes % % Monocytes % % Eosinophils % % Basophils % % Neutrophils # (1.3-7.7) k/uL Lymphocytes # (1.0-4.8) k/uL Monocytes # (0-1.0) k/uL Eosinophils # (0-0.7) k/uL Basophils # (0-0.2) k/uL PT (9.0-12.0) sec INR (<1.2) APTT (22.0-30.0) sec Sodium (137-145) mmol/L Potassium (3.5-5.1) mmol/L Chloride (98-107) mmol/L Carbon Dioxide (22-30) mmol/L Anion Gap mmol/L BUN (9-20) mg/dL Creatinine (0.66-1.25) mg/dL Est GFR (CKD-EPI)AfAm (>60 ml/min/1.73 sqM) Est GFR (CKD-EPI)NonAf (>60 ml/min/1.73 sqM) Glucose (74-99) mg/dL Calcium (8.4-10.2) mg/dL Magnesium (1.6-2.3) mg/dL Total Bilirubin (0.2-1.3) mg/dL AST (17-59) U/L ALT (4-49) U/L Alkaline Phosphatase (38-126) U/L Troponin I <0.012 (0.000-0.034) ng/mL NT-Pro-B Natriuret Pep 102 pg/mL Total Protein (6.3-8.2) g/dL Albumin (3.5-5.0) g/dL Disposition Clinical Impression: Chest pain Disposition: ADMITTED IP TO THIS [facility] Condition: Stable Is patient prescribed a controlled substance at d/c from ED?: No Referrals: [facility] [Primary Care Provider] - 1-2 days Decision to Admit Reason: Admit from EC Decision Date: 11/25/20 Decision Time: 14:50
[2020-11-25 14:04] LABS: Basophils % (A) 0 %; Eosinophils # (A) 0.2 k/uL (0-0.7); Eosinophils % (A) 4 %; HCT 45.9 % (39.0-53.0); HGB 16.2 gm/dL (13.0-17.5); Lymphocytes # (A) 1.2 k/uL (1.0-4.8); Lymphocytes % (A) 18 %; MCH 34.5 pg (25.0-35.0); MCHC 35.2 g/dL (31.0-37.0); Mean Platelet Volume 7.7; Monocytes # (A) 0.5 k/uL (0-1.0); Monocytes % (A) 7 %; Neutrophils # (A) 4.6 k/uL (1.3-7.7); Neutrophils % (A) 70 %; Platelet Count 152 k/uL (150-450); RBC 4.68 m/uL (4.30-5.90); RDW 12.4 % (11.5-15.5); WBC 6.6 k/uL (3.8-10.6)
[2020-11-25 14:13] LABS: ALT 16 U/L (4-49); AST 25 U/L (17-59); African American GFR (CKD) >90 (>60 ml/min/1.73 sqM); Albumin 3.9 g/dL (3.5-5.0); Alkaline Phosphatase 90 U/L (38-126); Anion Gap 5 mmol/L; Blood Urea Nitrogen 16 mg/dL (9-20); Calcium 9.2 mg/dL (8.4-10.2); Carbon Dioxide 31 mmol/L (22-30); Chloride 101 mmol/L (98-107); Glucose 82 mg/dL (74-99); Magnesium 2.1 mg/dL (1.6-2.3); Non-African American GFR(CKD) 78 (>60 ml/min/1.73 sqM); Potassium 4.8 mmol/L (3.5-5.1); Sodium 137 mmol/L (137-145); Total Bilirubin 0.3 mg/dL (0.2-1.3); Total Protein 6.6 g/dL (6.3-8.2)
[2020-11-25 14:16] LABS: INR 0.9 (<1.2); Partial Thromboplastin Time 24.2 sec (22.0-30.0); Prothrombin Time 9.9 sec (9.0-12.0)
--- NOTE | 2020-11-25 14:26 | XR ---
EXAMINATION TYPE: XR ankle complete RT DATE OF EXAM: 11/25/2020 CLINICAL HISTORY: Pain. TECHNIQUE: Frontal, lateral and oblique images of the right ankle are obtained. COMPARISON: None. FINDINGS: There is no acute fracture/dislocation evident in the right ankle. The ankle mortise appe ars within normal limits. The overlying soft tissue appears unremarkable. IMPRESSION: As above
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
[2020-11-25] MEDS ORDERED: MORPHINE SULFATE 4 MG/ML SYRINGE IVP STA (14:44)
[2020-11-25] MEDS ORDERED: ASPIRIN 325 MG TAB PO STA (14:44)
[2020-11-25] MEDS ORDERED: MORPHINE SULFATE 4 MG/ML SYRINGE IV PRN (14:47)
[2020-11-25] MEDS ORDERED: NALOXONE 0.4 MG/ML 1 ML VIAL IV PRN (14:47)
[2020-11-25] MEDS ORDERED: NICOTINE 21MG/24HR PATCH TRANSDERM PRN (17:26)
[2020-11-25] MEDS ORDERED: NITROGLYCERIN SL TABS 0.4 MG TAB SUBLINGUAL PRN (17:26)
[2020-11-25] MEDS ORDERED: polyethylene glycoL 3350 17 GM POWD.PACK PO PRN (17:26)
[2020-11-25] MEDS ORDERED: NAPROXEN 250 MG TAB PO PRN (17:26)
--- NOTE | 2020-11-25 17:26 | P.HPIM ---
History of Present Illness H&P Date: 11/25/20 Chief Complaint: chest pain and left ankle pain HISTORY OF PRESENT ILLNESS 50-year-old Wednesday overweight male who seen at the [facility] for his primary medical problem has cardiology seen on regular basis since his angioplasty and stent placement few years ago who presented to demurs department at [facility] today with episode of chest pain on and off as a burning squeezing discomfort with significant shortness of breath. According to him he twisted his right ankle and developed to have pain and discomfort and it not been able to put full weight has been limping and more and pain and burning discomfort. X-ray did not show any fracture of the time patient will benefit from aerobic boots and probably seen in podiatry eventually. Patient developed to have recurrent chest pain lately with minimum exertion become slightly red worse at the time he described as a midsternal with slight lightheadedness and dizziness with mild palpitation he had a previous history of angioplasty and [address] mcnamara on a regular basis and according to him had seen in the office over 6 month ago with testing Are up-to-date. REVIEW OF SYSTEMS Constitutional: No fever, no chills, no night sweats. No weight change. No weakness, fatigue or lethargy. No daytime sleepiness.mildly overweight EENT: No headache. No blurred vision or double vision, no loss of vision. No loss of Hearing, no ringing in the ears, no dizziness. No nasal drainage or congestion. No epistaxis. No sore throat. Lungs: Positive shortness of breath mild cough no wheezes positive tightness pressure in the chest area with no recent chest trauma Cardiovascular: Positive chest pain with angina with significant shortness of breath with it as well mild palpitation mild orthopnea and PND with slight decrease mobility because of symptom when he exerts himself. Abdominal: No abdominal pain. No nausea, vomiting. No diarrhea. No cons tipation. No bloody or tarry stools.. No loss of appetite. Genitourinary: No dysuria, increased frequency, urgency. No urinary retention. Musculoskeletal: No myalgias. No muscle weakness, no gait dysfunction, no frequent falls. No back pain. No neck pain. Integumentary: His right ankle had slight discomfort with no sign of cellulitis no change in tissue no puncture wound area slight limitation when try to rotate his foot. His pulse is positive in the foot area with no sign of PAD. Neurologic: No aphasia. No facial droop. No change in mentation. No head injury. No headache. No paralysis. No paresthesia. Psychiatric: No depression. No anxiety. No mood swings. Endocrine: No abnormal blood sugars. No weight change. No excessive sweating or thirst. No cold intolerance. SOCIAL HISTORY He smokes one pack a day for the last 30 years no alcohol abuse he smoked marijuana on regular basis is and lives alone. FAMILY HISTORY His divorce as 2 children both are living and well, 4 siblings one of them passed from [place], his father age 26 most likely suicide mother still living her 67 with no major medical problem. PHYSICAL EXAMINATION Gen: This is Mildly obese laying in bed does not look in any respiratory distress. HEENT: Head is atraumatic, normocephalic. Pupils equal, round. Sclerae is anicteric. NECK: Supple. No JVD. No lymphadenopathy. No thyromegaly. LUNGS: Decrease breast some relative 5 rhonchi no crackles or expiratory wheezes. HEART: Regular rate and rhythm. No murmur. ABDOMEN: Soft. Bowel sounds are present. No masses. No tenderness. EXTREMITIES: Slight edema on both side right ankle had mild limitation to motion with positive pulse. NEUROLOGICAL: Patient is awake, alert and oriented x3. Cranial nerves 2 through 12 are grossly intact. ASSESSMENT AND PLAN 1 recurrent chest pain and angina: Patient is very high risk has known to have history of CAD, with risk including smoking, age, previous history of CAD, smoking and hypertension with hyperlipidemia, admit patient to the hospital, we'll consult cardiology, plan for stress test or intervention if any abnormality with his cardiac enzymes. Patient will be watch carefully further m anagement to be decided in the next 24 hours. 2 known atherosclerotic heart disease: Post angioplasty and 3 stent placement patient still using atorvastatin, metoprolol and aspirin is still smoking though still physically less active. 3 hypertension: Has been doing well with metoprolol 25 g twice a day along with amlodipine 5 mg a day continue medication. 4 hyperlipidemia: Remain on atorvastatin 80 mg daily. 5 history of bipolar disorders and schizophrenia: Patient has been using Clozaril, Prolixin, Depakote and Cogentin resume medication. 6 right ankle pain: No sign of fracture from the current x-ray consult podiatry patient might benefit from aerobic boots. 7 chronic history of nicotine dependency: Continue patient on nicotine patch. 8 GI prophylaxis: Patient will be on Prilosec 20 mg daily. 9 DVT prophylaxis: Early mobilization knee-high CHESTER hose will be use. 10 CODE STATUS: Full code. 11. COVID-19 testing, was negative Patient will be admitted to the hospital for a minimum of 2 night stay. Past Medical History Past Medical History: Hypertension, Myocardial Infarction ([place]) Additional Past Medical History / Comment(s): chronic back pain, foot drop Last Myocardial Infarction Date:: 05/10/16 History of Any Multi-Drug Resistant Organisms: MRSA Date of last positivie culture/infection: 2011 MDRO Source:: eye Past Surgical History: Heart Catheterization With Stent Additional Past Surgical History / Comment(s): back surgery Past Anesthesia/Blood Transfusion Reactions: No Reported Reaction Date of Last Stent Placement:: 0 Past Psychological History: Bipolar, Depression Smoking Status: Current every day smoker Past Alcohol Use History: None Reported Past Drug Use History: Heroin, Marijuana - Past Family History Mother Family Medical History: Hypertension Brother(s) Family Medical History: Myocardial Infarction ([place]) Additional Family Medical History / Comment(s): from [place] at age 38 Medications and Allergies Home Medications Medication Instructions Recorded Confirmed Type Atorvastatin [Lipitor] 80 mg PO HS #30 tab 07/26/20 11/25/20 Rx Metoprolol Tartrate [Lopressor] 25 mg PO BID #60 tab 07/26/20 11/25/20 Rx amLODIPine [Norvasc] 5 mg PO DAILY #30 tab 07/26/20 11/25/20 Rx cloZAPine [Clozaril] 200 mg PO HS #60 tab 07/26/20 11/25/20 Rx Biotin 5 mg PO DAILY 11/25/20 11/25/20 History Divalproex ER [Depakote ER] 1,000 mg PO DAILY 11/25/20 11/25/20 History Glycopyrrolate [Robinul Forte] 2 mg PO BID 11/25/20 11/25/20 History Multivitamins, Thera [Multivitamin 1 tab PO DAILY 11/25/20 11/25/20 History (formulary)] Naproxen [Naprosyn] 500 mg PO TID PRN 11/25/20 11/25/20 History Nicotine 21Mg/24Hr Patch [Habitrol] 1 patch TRANSDERM DAILY PRN 11/25/20 11/25/20 History Nitroglycerin 0.4 mg SL Q5M PRN 11/25/20 11/25/20 History Omeprazole Magnesium [PriLOSEC] 20 mg PO DAILY 11/25/20 11/25/20 History fluPHENAZine decanoate [Prolixin 50 mg IM Q14D 11/25/20 11/25/20 History Decanoate] fluvoxaMINE [Luvox] 50 mg PO DAILY@1200 11/25/20 11/25/20 History polyethylene glycoL 3350 [Miralax] 17 gm PO DAILY PRN 11/25/20 11/25/20 History Allergies Allergy/AdvReac Type Severity Reaction Status Date / Time cephalexin monohydrate AdvReac Vomiting Verified 11/25/20 16:02 [From Keflex] Physical Exam Vitals: Vital Signs Temp Pulse Resp BP Pulse Ox 11/25/20 15:01 77 18 123/89 98 11/25/20 12:57 97.7 F 85 18 91/60 92 L Intake and Output 11/25/20 11/25/20 11/25/20 06:59 14:59 22:59 Other: Weight 88.451 kg Results CBC & Chem 7: 11/25/20 13:52 11/25/20 13:52 Labs: Abnormal Lab Results - Last 24 Hours (Table) 11/25/20 Range/Units 13:52 Carbon Dioxide 31 H (22-30) mmol/L
[2020-11-25] MEDS ORDERED: fluPHENAZine DECANOATE 25 MG/ML 5ML MDV IM SCH (17:30)
[2020-11-25] MEDS ORDERED: IPRATROPIUM 0.5 MG/2.5 ML NEBU INHALATION SCH (20:00)
[2020-11-25] MEDS: METOPROLOL TARTRATE 25 MG TAB PO SCH (20:02)
[2020-11-25] MEDS: GLYCOPYRROLATE 1 MG TAB PO SCH (20:29)
[2020-11-25] MEDS ORDERED: cloZAPine 100 MG TAB PO SCH (21:00)
[2020-11-25] MEDS ORDERED: ATORVASTATIN 80 MG TAB PO SCH (21:00)
[2020-11-26] MEDS: ACETAMINOPHEN TAB 325 MG TAB PO PRN ×2 (07:08→15:49)
[2020-11-26] MEDS: GLYCOPYRROLATE 1 MG TAB PO SCH (07:09)
[2020-11-26] MEDS: METOPROLOL TARTRATE 25 MG TAB PO SCH (07:09)
[2020-11-26] MEDS ORDERED: PANTOPRAZOLE 40 MG TABLET PO SCH (07:30)
[2020-11-26] MEDS ORDERED: MULTIVITAMINS, THERA 1 EACH TAB PO SCH (09:00)
[2020-11-26] MEDS ORDERED: amLODIPine 5 MG TAB PO SCH (09:00)
[2020-11-26] MEDS ORDERED: DIVALPROEX ER 500 MG TAB.ER.24H PO SCH (09:00)
[2020-11-26] MEDS ORDERED: NON FORMULARY DRUG (Biotin [Biotin] 5 MG Capsule) PO SCH (09:00)
--- NOTE | 2020-11-26 11:46 | P.PN ---
Progress Note - Text Patient interviewed and examined along with nurse practitioner Presented with loss of consciousness Abnormal EKG Mildly abnormal d-dimer RV is enlarged on 2-D echo LV function is normal with LVH Patient is obese Minimal lower extremity edema noted Suggest workup for pulmonary of loss of consciousness including pulmonary embolism Recommend CT angio of the chest Please see full dictation and is practitioner
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
[2020-11-26 13:25] VITALS: RESP 18
[2020-11-26 13:35] VITALS: BP 137/90; PULSE 86; TEMP 98.6
--- NOTE | 2020-11-26 16:32 | CT ---
EXAMINATION TYPE: CT angio chest DATE OF EXAM: 11/26/2020 COMPARISON: None HISTORY: Elevated d-dimer. Hx heart disease, HTN CT DLP: 371.60 mGycm CONTRAST: CT chest with contrast and 3D reconstruction with MIP imaging is performed with IV Contrast, patient injected with 100 mL of Isovue 370. Contrast-enhanced CT of the chest was performed through the course of the pulmonary arteries with gaurav g and mediastinal window settings submitted. 3D reconstruction with MIP imaging was also performed. PULMONARY ARTERIES: The pulmonary arteries and their major tributaries are patent. I do not see nick dence for sizable filling defect to suggest pulmonary embolic process. LUNGS: Patchy infiltrate right lower lobe. No evidence for atelectasis. No pulmonary nodule or mass is detected. No pleural effusion. MEDIASTINUM: Thoracic aorta is of normal caliber,however, evaluation is limited given timing of the contrast bolus. If there is concern for thoracic aortic pathology consider RAJIV. Correlate clinicall y . The heart is not enlarged. No evidence for mediastinal mass. No mediastinal lymph nodes greater than 1cm. HILAR STRUCTURES: No evidence for mass. No hilar lymph nodes greater than 1 cm. UPPER ABDOMEN: No significant abnormality is seen. IMPRESSION: 1. No evidence for Pulmonary embolism at this time.
--- NOTE | 2020-11-26 17:00 | ECHOF ---
Referral Reason:traumatic chest MEASUREMENTS -------- HEIGHT: 170.2 cm WEIGHT: 88.5 kg BP: 146/101 IVSd: 1.1 cm (0.6 - 1.1) LVIDd: 3.8 cm (3.9 - 5.3) LVPWd: 1.4 cm (0.6 - 1.1) EDV(Teich): 64 ml IVSs: 1.5 cm LVIDs: 2.7 cm LVPWs: 1.7 cm %IVS Thck: 29 % ESV(Teich): 27 ml EF(Teich): 58 % %FS: 30 % SV(Teich): 37 ml RVIDd: 4.1 cm (< 3.3) LALs A4C: 5.0 cm LAAs A4C: 14.0 cm LAESV A-L A4C: 34 ml LAESV MOD A4C: 33 ml LALs A2C: 4.2 cm LAAs A2C: 10.8 cm LAESV A-L A2C: 24 ml LAESV MOD A2C: 22 ml LAESV(A-L): 31 ml LAESV Index (A-L): 15.28 ml/m Ao Diam: 3.6 cm (2.0 - 3.7) AV Cusp: 2.0 cm (1.5 - 2.6) MV E Bogdan: 0.53 m/s MV DecT: 169 ms MV Dec Brule: 3.1 m/s MV A Bogdan: 0.65 m/s MV E/A Ratio: 0.82 MV PHT: 49 ms LVOT Vmax: 0.78 m/s LVOT maxP.41 mmHg AV Vmax: 0.86 m/s AV maxP.97 mmHg FINDINGS -------- Sinus rhythm. This was a technically adequate study. The left ventricular size is normal. There is mild concentric left ventricular hypertrophy. Overa ll left ventricular systolic function is normal with, an EF between 55 - 60 %. The diastolic fillin g pattern is normal for the age of the patient 9.60. The right ventricle is severely enlarged. Normal LA size by volume 22+/-6 ml/m2. The right atrium is mildly enlarged. Interatrial and interventricular septum intact. There is no evidence of aortic regurgitation. There is no evidence of aortic stenosis. No mitral regurgitation. Mild tricuspid regurgitation present. There is no evidence of pulmonary hypertension. The right v entricular systolic pressure, as measured by Doppler, is {RVSP}. There is no pulmonic regurgitation present. The aortic root size is normal. IVC Not well visulized. There is no pericardial effusion. CONCLUSIONS -------- 1. The left ventricular size is normal. 2. There is mild concentric left ventricular hypertrophy. 3. Overall left ventricular systolic function is normal with, an EF between 55 - 60 %. 4. The diastolic filling pattern is normal for the age of the patient 9.60 5. The right ventricle is severely enlarged. 6. The right atrium is mildly enlarged. 7. Mild tricuspid regurgitation present. BOX PRESS OPERATOR: Irlanda Camarena RDCS
== END 2020-11-26 17:15 | disposition home or self-care (01) ==
LOC: EC 12:48 → 6NMEDSUR 14:48
PROVIDERS: ADMIT Internal Medicine Geriatric Medicine; ATTEND Internal Medicine Geriatric Medicine
DX: R07.89 Other chest pain (principal); I25.119 Atherosclerotic heart disease of native coronary artery with unspecified angina pectoris; I11.9 Hypertensive heart disease without heart failure; S99.911A Unspecified injury of right ankle, initial encounter; I07.1 Rheumatic tricuspid insufficiency; I73.9 Peripheral vascular disease, unspecified; E78.5 Hyperlipidemia, unspecified; R06.09 Other forms of dyspnea; R79.89 Other specified abnormal findings of blood chemistry; I25.2 Old myocardial infarction; G89.29 Other chronic pain; M54.9 Dorsalgia, unspecified; M21.379 Foot drop, unspecified foot; R22.43 Localized swelling, mass and lump, lower limb, bilateral; F17.210 Nicotine dependence, cigarettes, uncomplicated; F20.9 Schizophrenia, unspecified; F31.9 Bipolar disorder, unspecified; F11.90 Opioid use, unspecified, uncomplicated; F12.90 Cannabis use, unspecified, uncomplicated; E66.9 Obesity, unspecified; Z68.30 Body mass index [BMI] 30.0-30.9, adult; Z20.822 Contact with and (suspected) exposure to COVID-19; X50.1XXA Overexertion from prolonged static or awkward postures, initial encounter; W01.0XXA Fall on same level from slipping, tripping and stumbling without subsequent striking against object, initial encounter; Z79.899 Other long term (current) drug therapy; Z88.1 Allergy status to other antibiotic agents; Z96.82 Presence of neurostimulator; Z86.14 Personal history of Methicillin resistant Staphylococcus aureus infection; Z95.5 Presence of coronary angioplasty implant and graft; Z98.890 Other specified postprocedural states; Z82.49 Family history of ischemic heart disease and other diseases of the circulatory system
CPT/HCPCS: 96376; 93005 ×2; 96374; 99285; 36415; 94640; 93306; 85379; 83880; 80053; 83735; 84484; 85025; 85610; 85730; 87635; 73610; 71046; 71275; G0378 ×2; S4990; J2270; S0136; Q9967

== ENCOUNTER 2021-02-11 09:40 | Emergency (ER) | payer MEDICARE, OTHER ==
--- NOTE | 2021-02-11 11:04 | ED ---
General Adult HPI - General Stated complaint: Lt Ankle Problems - History of Present Illness Initial comments: 50 year old male present to the emergency room for a chief complaint of left ankle pain. Patient states he was standing on his tip toes and then fell forward injuring his left ankle. States it is painful to walk on. Denies pain in the tib/fib or knee. Admits to mild pain in the left foot. Did not hit his head. Denies CP, SOB, NVD, abdominal pain, JAVIER, visual changes. Pt seen for ATP. - Related Data Home Medications Medication Instructions Recorded Confirmed Biotin 5 mg PO DAILY 11/25/20 11/25/20 Divalproex ER [Depakote ER] 1,000 mg PO DAILY 11/25/20 11/25/20 Glycopyrrolate [Robinul Forte] 2 mg PO BID 11/25/20 11/25/20 Multivitamins, Thera [Multivitamin 1 tab PO DAILY 11/25/20 11/25/20 (formulary)] Naproxen [Naprosyn] 500 mg PO TID PRN 11/25/20 11/25/20 Nicotine 21Mg/24Hr Patch [Habitrol] 1 patch TRANSDERM DAILY PRN 11/25/20 11/25/20 Nitroglycerin 0.4 mg SL Q5M PRN 11/25/20 11/25/20 Omeprazole Magnesium [PriLOSEC] 20 mg PO DAILY 11/25/20 11/25/20 fluPHENAZine decanoate [Prolixin 50 mg IM Q14D 11/25/20 11/25/20 Decanoate] fluvoxaMINE [Luvox] 50 mg PO DAILY@1200 11/25/20 11/25/20 polyethylene glycoL 3350 [Miralax] 17 gm PO DAILY PRN 11/25/20 11/25/20 Previous Rx's Medication Instructions Recorded Atorvastatin [Lipitor] 80 mg PO HS #30 tab 07/26/20 Metoprolol Tartrate [Lopressor] 25 mg PO BID #60 tab 07/26/20 amLODIPine [Norvasc] 5 mg PO DAILY #30 tab 07/26/20 cloZAPine [Clozaril] 200 mg PO HS #60 tab 07/26/20 Allergies Allergy/AdvReac Type Severity Reaction Status Date / Time cephalexin monohydrate AdvReac Vomiting Verified 02/11/21 11:05 [From [employer]] Review of Systems ROS Statement: Those systems with pertinent positive or pertinent negative responses have been documented in the HPI. ROS Other: All systems not noted in ROS Statement are negative. Past Medical History Past Medical History: Hypertension, Myocardial Infarction ([place]) Additional Past Medical History / Comment(s): chronic back pain, foot drop Last Myocardial Infarction Date:: 05/10/16 History of Any Multi-Drug Resistant Organisms: MRSA Date of last positivie culture/infection: 2011 MDRO Source:: eye Past Surgical History: Heart Catheterization With Stent Additional Past Surgical History / Comment(s): back surgery Past Anesthesia/Blood Transfusion Reactions: No Reported Reaction Date of Last Stent Placement:: 0 Past Psychological History: Bipolar, Depression Smoking Status: Current every day smoker Past Alcohol Use History: None Reported Past Drug Use History: Heroin, Marijuana - Past Family History Mother Family Medical History: Hypertension Brother(s) Family Medical History: Myocardial Infarction ([place]) Additional Family Medical History / Comment(s): from [place] at age 38 General Exam General appearance: alert, in no apparent distress Head exam: Present: atraumatic Eye exam: Present: normal appearance, PERRL, EOMI. Absent: scleral icterus, conjunctival injection ENT exam: Present: normal exam, mucous membranes moist Neck exam: Present: normal inspection, full ROM. Absent: tenderness Respiratory exam: Present: normal lung sounds bilaterally. Absent: respiratory distress, wheezes Cardiovascular Exam: Present: regular rate, normal rhythm, normal heart sounds GI/Abdominal exam: Present: soft, normal bowel sounds. Absent: distended, tenderness Extremities exam: Present: tenderness (Tenderness noted to both the medial malleolus and lateral malleolus of the left ankle. Mild tenderness generalized in the left foot as well.), normal capillary refill (Capillary refill less than 2 seconds, DP pulse 2+ left lower extremity.), other (Sensation intact left lower extremity). Absent: full ROM (Patient has limited plantar and dorsi flexion of the left ankle.), calf tenderness Neurological exam: Present: alert Course Vital Signs 02/11/21 11:01 Temperature 98.4 F Pulse Rate 79 Respiratory 18 Rate Blood Pressure 142/91 O2 Sat by Pulse 95 Oximetry Procedures - Orthopedic Splinting/Casting Injury #1 Side: left Lower Extremity Injury Location: short leg Lower Extremity Immobilizer: stirrup splint Other Orthopedic Equipment: crutches Additional Comments: Neurovascular status intact before and after splint applied Medical Decision Making - Medical Decision Making Patient was formally seen by me in the emergency room. Patient went up on his tiptoes to dance like Ted Page and fell forward injuring his left ankle. Tenderness to the lateral ankle. Minimal tenderness of the left foot. X-ray of the ankle was read by myself given radiology was not able to give a report. X-ray did show an acute distal fibula fracture. No foot fracture. I will follow-up on report. Patient was splinted in a stirrup splint. Given crutches for home. Will follow-up with orthopedics. Will return here for any worsening symptoms. Patient reports he has a drop foot and cannot dorsiflex his foot normally. Disposition Clinical Impression: Fracture of distal fibula Disposition: HOME SELF-CARE Condition: Good Instructions (If sedation given, give patient instructions): Ankle Fracture (ED) Additional Instructions: Take Motrin and Tylenol for pain. Rest ice and elevate the left ankle. Keep splint dry. Use crutches as needed. Follow-up with orthopedics by calling for the earliest appointment. Return to the emergency room for worsening symptoms. Is patient prescribed a controlled substance at d/c from ED?: No Referrals: [facility] [Primary Care Provider] - 1-2 days Leroy Corcoran DO [Doctor of Osteopathic Medicine] - 1-2 days Time of Disposition: 12:53
[2021-02-11 11:06] VITALS: BP 142/91; PULSE 79; RESP 18; TEMP 98.4
[2021-02-11] MEDS ORDERED: IBUPROFEN 600 MG TAB PO STA (11:10)
--- NOTE | 2021-02-11 16:15 | XR ---
EXAMINATION TYPE: XR ankle complete LT DATE OF EXAM: 02/11/2021 COMPARISON: None HISTORY: Pain TECHNIQUE: 3 view left ankle FINDINGS: There is a spiral fracture of the distal metadiaphyseal fibula. Minimal soft tissue swellin g over the lateral malleolus may be present. Ankle mortise is intact. No additional fractures are evident. Joint spaces are preserved. IMPRESSION: 1. Spiral fracture distal metaphyseal left tibial fibula
--- NOTE | 2021-02-11 16:18 | XR ---
EXAMINATION TYPE: XR foot complete LT DATE OF EXAM: 02/11/2021 COMPARISON: Left ankle same date HISTORY: Fall, pain TECHNIQUE: 3 view left foot FINDINGS: Distal metadiaphyseal fibular fracture in the [id number]. See left ankle dictation same date. Left foot appears intact. No acute fracture or dislocation is evident. There is some articular change at the tarsal metatarsal junction of the first digit medially. This ap pears to be chronic. Correlate with location of patient's pain. IMPRESSION: 1. No acute fracture within the left foot. 2. Left distal metadiaphyseal fibular fracture, see ankle dictation same date. 3. Minimal articular changes along the medial first metacarpal proximal joint space.
== END 2021-02-11 13:20 | disposition home or self-care (01) ==
LOC: EC 09:40
DX: S82.832A Other fracture of upper and lower end of left fibula, initial encounter for closed fracture (principal); I10 Essential (primary) hypertension; I25.2 Old myocardial infarction; F32.9 Major depressive disorder, single episode, unspecified; F17.200 Nicotine dependence, unspecified, uncomplicated; F12.90 Cannabis use, unspecified, uncomplicated; Z88.1 Allergy status to other antibiotic agents; W01.0XXA Fall on same level from slipping, tripping and stumbling without subsequent striking against object, initial encounter
CPT/HCPCS: 29515; 99283

== ENCOUNTER 2021-04-08 16:57 | Emergency (ER) | payer MEDICARE, OTHER ==
[2021-04-08] MEDS ORDERED: DIPH,PERTUS(ACELL)TETVAC-LF 0.5 ML VIAL IM ONE (17:00)
[2021-04-08] MEDS: HYDROmorphone 0.5 MG/0.5 ML SYRINGE IVP STA ×2 (17:04→18:30)
[2021-04-08] MEDS ORDERED: KETAMINE 10 MG/ML 20 ML VIAL IV STA ×2 (17:10→17:25)
[2021-04-08] MEDS ORDERED: MIDAZOLAM 1 MG/ML 5 ML VIAL IV STA (17:13)
[2021-04-08 17:29] LABS: Basophils % (A) 0 %; Eosinophils # (A) 0.1 k/uL (0-0.7); Eosinophils % (A) 2 %; HCT 47.3 % (39.0-53.0); HGB 16.2 gm/dL (13.0-17.5); Lymphocytes # (A) 1.1 k/uL (1.0-4.8); Lymphocytes % (A) 20 %; MCH 34.1 pg (25.0-35.0); MCHC 34.2 g/dL (31.0-37.0); MCV 99.8 fL (80.0-100.0); Mean Platelet Volume 8.5; Monocytes # (A) 0.3 k/uL (0-1.0); Monocytes % (A) 6 %; Neutrophils # (A) 3.6 k/uL (1.3-7.7); Neutrophils % (A) 69 %; Platelet Count 143 k/uL (150-450); RBC 4.74 m/uL (4.30-5.90); RDW 13.4 % (11.5-15.5); WBC 5.2 k/uL (3.8-10.6)
--- NOTE | 2021-04-08 17:34 | ED ---
General Adult HPI - General Stated complaint: open fracture lt leg Time Seen by Provider: 04/08/21 17:00 Source: patient, EMS, RN notes reviewed, old records reviewed Mode of arrival: EMS Limitations: no limitations - History of Present Illness Initial comments: [id number]-year-old male trip and fall with open left ankle fracture dislocation. This was splinted by paramedics, 100 mg of fentanyl was administered during transport. EMS reported good cap refill. This is the pa tient's only reported injury and only pain complaint is left ankle pain. There was moderate bleeding according to EMS, no pulsatile hemorrhage. Patient denies head neck or back trauma. Denies chest pain or abdominal pain. - Related Data Home Medications Medication Instructions Recorded Confirmed Biotin 5 mg PO DAILY 11/25/20 11/25/20 Divalproex ER [Depakote ER] 1,000 mg PO DAILY 11/25/20 11/25/20 Glycopyrrolate [Robinul Forte] 2 mg PO BID 11/25/20 11/25/20 Multivitamins, Thera [Multivitamin 1 tab PO DAILY 11/25/20 11/25/20 (formulary)] Naproxen [Naprosyn] 500 mg PO TID PRN 11/25/20 11/25/20 Nicotine 21Mg/24Hr Patch [Habitrol] 1 patch TRANSDERM DAILY PRN 11/25/20 11/25/20 Nitroglycerin 0.4 mg SL Q5M PRN 11/25/20 11/25/20 Omeprazole Magnesium [PriLOSEC] 20 mg PO DAILY 11/25/20 11/25/20 fluPHENAZine decanoate [Prolixin 50 mg IM Q14D 11/25/20 11/25/20 Decanoate] fluvoxaMINE [Luvox] 50 mg PO DAILY@1200 11/25/20 11/25/20 polyethylene glycoL 3350 [Miralax] 17 gm PO DAILY PRN 11/25/20 11/25/20 Previous Rx's Medication Instructions Recorded Atorvastatin [Lipitor] 80 mg PO HS #30 tab 07/26/20 Metoprolol Tartrate [Lopressor] 25 mg PO BID #60 tab 07/26/20 amLODIPine [Norvasc] 5 mg PO DAILY #30 tab 07/26/20 cloZAPine [Clozaril] 200 mg PO HS #60 tab 07/26/20 Allergies Allergy/AdvReac Type Severity Reaction Status Date / Time cephalexin monohydrate AdvReac Vomiting Verified 02/11/21 11:05 [From Keflex] Review of Systems ROS Statement: Those systems with pertinent positive or pertinent negative responses have been documented in the HPI. ROS Other: All systems not noted in ROS Statement are negative. Past Medical History Past Medical History: Hypertension, Myocardial Infarction ([place]) Additional Past Medical History / Comment(s): chronic back pain, foot drop Last Myocardial Infarction Date:: 05/10/16 History of Any Multi-Drug Resistant Organisms: MRSA Date of last positivie culture/infection: 2011 MDRO Source:: eye Past Surgical History: Heart Catheterization With Stent Additional Past Surgical History / Comment(s): back surgery Past Anesthesia/Blood Transfusion Reactions: No Reported Reaction Date of Last Stent Placement:: 0 Past Psychological History: Bipolar, Depression Smoking Status: Current every day smoker Past Alcohol Use History: None Reported Past Drug Use History: Heroin, Marijuana - Past Family History Mother Family Medical History: Hypertension Brother(s) Family Medical History: Myocardial Infarction ([place]) Additional Family Medical History / Comment(s): from [place] at age 38 General Exam Limitations: no limitations General appearance: alert, in no apparent distress Head exam: Present: atraumatic, normocephalic Eye exam: Present: normal appearance, PERRL ENT exam: Present: normal exam Neck exam: Present: normal inspection. Absent: tenderness, meningismus Respiratory exam: Present: normal lung sounds bilaterally. Absent: respiratory distress, wheezes Cardiovascular Exam: Present: regular rate, normal rhythm GI/Abdominal exam: Present: soft. Absent: distended, tenderness, guarding Extremities exam: Present: other (Left ankle, this is an open fracture dislocation. With exposed tibia, initial pulse DP is weak, there is 3 second cap refill.) Neurological exam: Present: alert, oriented X3 Psychiatric exam: Present: normal affect, normal mood Skin exam: Present: warm, dry Course Vital Signs 04/08/21 04/08/21 04/08/21 16:58 17:13 17:15 Temperature 97.9 F Pulse Rate 76 97 79 Respiratory 18 18 18 Rate Blood Pressure 117/101 139/94 129/97 O2 Sat by Pulse 98 81 L Oximetry 04/08/21 04/08/21 04/08/21 17:20 17:35 17:50 Temperature Pulse Rate 80 76 80 Respiratory 15 18 17 Rate Blood Pressure 131/100 141/100 137/74 O2 Sat by Pulse 100 98 100 Oximetry 04/08/21 18:05 Temperature Pulse Rate 71 Respiratory 17 Rate Blood Pressure 131/73 O2 Sat by Pulse 100 Oximetry - Reevaluation(s) Reevaluation #1: 04/08/21 17:[address] Silveira covering for with OA, recommends transfer. Reevaluation #2: 04/08/21 17:[address] Bianchi, he will accept patient as transfer. Reevaluation #3: 04/08/21 19:02 The transfer center did indicate that they would not accept the patient for transfer. I confirmed this with Dr. Bianchi who states that they are not accepting patients currently. 04/08/21 19:07 [facility] has been contacted regarding transfer. Reevaluation #4: 04/08/21 19:11 I did discuss case with Dr. Keys at [facility] who will accept this patient for transfer. EKG Findings - EKG Comments: EKG Findings:: EKG: Normal sinus rhythm, rate of 83, MI interval 168, QRS duration 94, QTC 444, no ST segment elevation. Procedures - Orthopedic Joint Reduction Joint #1 Consent Obtained: verbal consent Side: left Joint Reduction Location: ankle Analgesia: procedural sedation Technique Used: traction/counter-traction Post-Reduction Neuro Exam: intact Post-Reduction Vascular Exam: intact Post Reduction X-Ray Obtained: Yes Post Reduction X-Ray Results: not reduced Splint Applied: Yes Patient Tolerated Procedure: other (Reduction was unsuccessful. This was performed as of urgent reduction initial pulse was very weak, with improved splinting the pulse did improve at the dorsalis pedis to 2+ with normal cap refill.) - Orthopedic Splinting/Casting Injury #1 Side: left Lower Extremity Injury Location: ankle Lower Extremity Immobilizer: posterior splint, stirrup splint Additional Comments: Fracture dislocation distal tib-fib - Procedural Sedation Procedural Sedation Start Time: 17:15 Procedural Sedation Stop Time: 17:45 Indications: fracture/dislocation reduction ASA Class: II Mallampati Airway Score: 2 Preparation: sales engineering manager applied, pulse oximeter, capnometry used, supplemental O2 applied, reversal agents at bedside, suction/airway equipment at bedside, IV secured Midazolam: IV Midazolam Dose: 2 Ketamine: IV Ketamine Dose: 100 Complications: none Patient Tolerated Procedure: well Medical Decision Making - Medical Decision Making 50-year-old male presenting status post slip and fall with open fracture dislocation of the distal tibia and fibula. This is irrigated with normal saline in the emergency department. The patient is initiated on both Ancef and gentamicin. I discussed case initially with orthopedics at this institution who recommended transfer. I discussed case with the orthopedic surgeon at [facility] Dr. Macdonald. He did accept the transfer. Ultimately the transfer center had denied to transfer and I was able to speak with Dr. Keys at [facility] who will accept the patient. Laboratory testing including CBC, CMP unremarkable. Head CT and cervical spine negative for fracture dislocation, negative for intracranial hemorrhage. I did sedate this patient for fracture dislocation reduction and was unsuccessful. I was not able to reduce the open dislocation. Patient has been given antibiotics, Ancef, gentamicin, pain medication. Diagnosis: Open fracture dislocation of the distal tibia and fibula - Lab Data Result diagrams: 04/08/21 17:08 04/08/21 17:08 Lab Results 04/08/21 04/08/21 04/08/21 Range/Units 17:05 17:08 17:08 WBC 5.2 (3.8-10.6) k/uL RBC 4.74 (4.30-5.90) m/uL Hgb 16.2 (13.0-17.5) gm/dL Hct 47.3 (39.0-53.0) % MCV 99.8 (80.0-100.0) fL MCH 34.1 (25.0-35.0) pg MCHC 34.2 (31.0-37.0) g/dL RDW 13.4 (11.5-15.5) % Plt Count 143 L (150-450) k/uL MPV 8.5 Neutrophils % 69 % Lymphocytes % 20 % Monocytes % 6 % Eosinophils % 2 % Basophils % 0 % Neutrophils # 3.6 (1.3-7.7) k/uL Lymphocytes # 1.1 (1.0-4.8) k/uL Monocytes # 0.3 (0-1.0) k/uL Eosinophils # 0.1 (0-0.7) k/uL Basophils # 0.0 (0-0.2) k/uL PT 10.6 (9.0-12.0) sec INR 1.0 (<1.2) APTT 25.0 (22.0-30.0) sec Sodium (137-145) mmol/L Potassium (3.5-5.1) mmol/L Chloride (98-107) mmol/L Carbon Dioxide (22-30) mmol/L Anion Gap mmol/L BUN (9-20) mg/dL Creatinine (0.66-1.25) mg/dL Est GFR (CKD-EPI)AfAm (>60 ml/min/1.73 sqM) Est GFR (CKD-EPI)NonAf (>60 ml/min/1.73 sqM) Glucose (74-99) mg/dL Calcium (8.4-10.2) mg/dL Total Bilirubin (0.2-1.3) mg/dL AST (17-59) U/L ALT (4-49) U/L Alkaline Phosphatase (38-126) U/L Total Protein (6.3-8.2) g/dL Albumin (3.5-5.0) g/dL Serum Alcohol mg/dL Blood Type O Positive Blood Type Confirm Blood Type Recheck No Previous Record Bld Type Recheck Status CABO Indicated Antibody Screen NEGATIVE Spec Expiration Date 04/11/2021230404/08/21 04/08/21 Range/Units 17:08 17:10 WBC (3.8-10.6) k/uL RBC (4.30-5.90) m/uL Hgb (13.0-17.5) gm/dL Hct (39.0-53.0) % MCV (80.0-100.0) fL MCH (25.0-35.0) pg MCHC (31.0-37.0) g/dL RDW (11.5-15.5) % Plt Count (150-450) k/uL MPV Neutrophils % % Lymphocytes % % Monocytes % % Eosinophils % % Basophils % % Neutrophils # (1.3-7.7) k/uL Lymphocytes # (1.0-4.8) k/uL Monocytes # (0-1.0) k/uL Eosinophils # (0-0.7) k/uL Basophils # (0-0.2) k/uL PT (9.0-12.0) sec INR (<1.2) APTT (22.0-30.0) sec Sodium 139 (137-145) mmol/L Potassium 4.5 (3.5-5.1) mmol/L Chloride 103 (98-107) mmol/L Carbon Dioxide 32 H (22-30) mmol/L Anion Gap 4 mmol/L BUN 15 (9-20) mg/dL Creatinine 0.99 (0.66-1.25) mg/dL Est GFR (CKD-EPI)AfAm >90 (>60 ml/min/1.73 sqM) Est GFR (CKD-EPI)NonAf 88 (>60 ml/min/1.73 sqM) Glucose 99 (74-99) mg/dL Calcium 9.2 (8.4-10.2) mg/dL Total Bilirubin 0.6 (0.2-1.3) mg/dL AST 23 (17-59) U/L ALT 20 (4-49) U/L Alkaline Phosphatase 73 (38-126) U/L Total Protein 6.4 (6.3-8.2) g/dL Albumin 3.5 (3.5-5.0) g/dL Serum Alcohol <10 mg/dL Blood Type Blood Type Confirm O Positive Blood Type Recheck Bld Type Recheck Status Antibody Screen Spec Expiration Date Disposition Clinical Impression: Fracture dislocation of ankle, Open fracture Disposition: OTHER INSTITUTION NOT DEFINED Condition: Stable Is patient prescribed a controlled substance at d/c from ED?: No Referrals: [facility] [Primary Care Provider] - 1-2 days Time of Disposition: 17:48 - Out of Hospital Transfer - Req. Specs Out of Hospital Transfer - Requested Specifics: Other Emergency Center (Transfer to [facility])
[2021-04-08 17:38] LABS: ALT 20 U/L (4-49); AST 23 U/L (17-59); African American GFR (CKD) >90 (>60 ml/min/1.73 sqM); Albumin 3.5 g/dL (3.5-5.0); Alcohol <10 mg/dL; Alkaline Phosphatase 73 U/L (38-126); Anion Gap 4 mmol/L; Blood Urea Nitrogen 15 mg/dL (9-20); Calcium 9.2 mg/dL (8.4-10.2); Carbon Dioxide 32 mmol/L (22-30); Chloride 103 mmol/L (98-107); Glucose 99 mg/dL (74-99); Non-African American GFR(CKD) 88 (>60 ml/min/1.73 sqM); Potassium 4.5 mmol/L (3.5-5.1); Sodium 139 mmol/L (137-145); Total Bilirubin 0.6 mg/dL (0.2-1.3); Total Protein 6.4 g/dL (6.3-8.2)
[2021-04-08 17:40] LABS: Prothrombin Time 10.6 sec (9.0-12.0)
[2021-04-08] MEDS ORDERED: GENTAMICIN PER PHARMACY MISCELLANE PRN (17:43)
--- NOTE | 2021-04-08 18:25 | XR ---
EXAMINATION TYPE: XR ankle limited LT DATE OF EXAM: 04/08/2021 CLINICAL HISTORY: Fall TECHNIQUE: Frontal, lateral and oblique images of the left ankle are obtained. COMPARISON: None. FINDINGS: Overlying splint material obscures fine bony detail. There is a highly comminuted fracture of the distal tibia and fibula. There is disarticulation at the tibiotalar joint. IMPRESSION: There is a highly comminuted fracture of the distal tibia and fibula. There is disarticu lation at the tibiotalar joint.
[2021-04-08] MEDS ORDERED: GENTAMICIN 370 MG in SODIUM CHLORIDE 0.9% 100 ML IVPB ONE (18:30)
--- NOTE | 2021-04-08 18:31 | CT ---
EXAMINATION TYPE: CT brain cspine wo con DATE OF EXAM: 04/08/2021 COMPARISON: CT brain angiogram 03/04/2019. HISTORY: Fall today with injury. CT DLP: 1536.9 mGycm Automated exposure control for dose reduction was used. TECHNIQUE: CT scan of the head and cervical spine are performed without contrast. FINDINGS: There is no acute intracranial hemorrhage, mass effect, or midline shift identified. The ventricles and sulci are within normal limits in size. The globes are intact and the visualized sin uses are clear. Mucus retention cyst of the right maxillary sinus. Cervical spine is visualized in its entirety from C1 through upper thoracic levels and demonstrates s atisfactory alignment without evidence of acute fracture or dislocation. Prevertebral soft tissue ap pears within normal limits. The C1-C2 articulation is unremarkable. Paraseptal emphysematous changes at the lung apices. Punctate radiodensities in left posterior spinal soft tissues and a generalized vertebral body likely relates to prior trauma. There is old fracture deformity. IMPRESSION: 1. There is no acute fracture or dislocation evident in the cervical spine. 2. No acute intracranial hemorrhage, mass effect, or midline shift is seen.
[2021-04-08] MEDS ORDERED: HYDROmorphone 0.5 MG/0.5 ML SYRINGE IVP STA (19:06)
[2021-04-08 19:19] LABS: Appearance,Urine Cloudy (Clear); Bilirubin,Urine Negative (Negative); Blood,Urine Negative (Negative); Budding Yeast,Urine Moderate /hpf; Color,Urine Yellow; Glucose,Urine (UA) Negative (Negative); Ketones,Urine Negative (Negative); Leukocyte Esterase,Urine Negative (Negative); Nitrite,Urine Negative (Negative); Protein,Urine Negative (Negative); RBC,Urine 1 /hpf (0-5); Specific Gravity,Urine 1.013 (1.001-1.035); Urobilinogen,Urine <2.0 mg/dL (<2.0); WBC,Urine 1 /hpf (0-5)
[2021-04-08 19:22] LABS: Amphetamine Screen,Urine Not Detected (NotDetected); Barbiturate Screen,Urine Not Detected (NotDetected); Benzodiazepines Screen,Urine Not Detected (NotDetected); Cocaine Screen,Urine Not Detected (NotDetected); Methadone Screen, Urine Not Detected (NotDetected); Opiate Screen,Urine Detected (NotDetected); Oxycodone Screen, Urine Detected (NotDetected); Phencyclidine Screen,Urine Not Detected (NotDetected); Tricyclic Antidepressant,Urine Not Detected (NotDetected); Urn Cannabinoid Scrn Detected (NotDetected)
[2021-04-08 20:28] VITALS: BP 110/83; PULSE 86; RESP 16; TEMP 97.4
== END 2021-04-08 20:36 | disposition other institution (70) ==
LOC: EC 16:57
DX: S82.892B Other fracture of left lower leg, initial encounter for open fracture type I or II (principal); S93.05XA Dislocation of left ankle joint, initial encounter; I10 Essential (primary) hypertension; I25.2 Old myocardial infarction; F17.200 Nicotine dependence, unspecified, uncomplicated; Z79.1 Long term (current) use of non-steroidal anti-inflammatories (NSAID); Z79.899 Other long term (current) drug therapy; Z88.1 Allergy status to other antibiotic agents; Z82.49 Family history of ischemic heart disease and other diseases of the circulatory system; W01.0XXA Fall on same level from slipping, tripping and stumbling without subsequent striking against object, initial encounter
CPT/HCPCS: 36415; 93005; 86900; 86901; 80053; 85025; 85610; 85730; 86850; 81001; 80306; 73600; 72125; 70450; 90715; 27788; 96365; 96367; 96375 ×2; 96376; 90471; 99285; G0480; J1580; J0690; J2250; J1170; 80320

== ENCOUNTER 2021-05-19 06:44 | Emergency (ER) | payer MEDICARE, OTHER ==
[2021-05-19 06:56] VITALS: RESP 18; TEMP 97.5
[2021-05-19] MEDS ORDERED: KETOROLAC 15 MG/ML 1 ML VIAL IM STA (07:13)
--- NOTE | 2021-05-19 07:19 | ED ---
General Adult HPI - General Source: patient, EMS, RN notes reviewed Mode of arrival: EMS <Levar Ward - Last Filed: 05/19/21 07:57> <Rubi Perez - Last Filed: 05/22/21 00:58> - General Chief complaint: Extremity Problem,Nontraumatic Stated complaint: LT leg injury Time Seen by Provider: 05/19/21 06:57 - History of Present Illness Initial comments: 50-year-old male with a past medical history of hypertension, [place], chronic back pain presents to the emergency room for a chief complaint of left ankle pain. Patient states he was discharged from our would and walked on his left ankle wrong. States it is hurting today. Patient had an open fracture about a month ago and was transferred to another facility. Recently discharged from our would. No fevers or chills.Patient has no other complaints at this time including shortness of breath, chest pain, abdominal pain, nausea or vomiting, headache, or visual changes. (Levar Ward) - Related Data Home Medications Medication Instructions Recorded Confirmed Biotin 5 mg PO DAILY 11/25/20 11/25/20 Divalproex ER [Depakote ER] 1,000 mg PO DAILY 11/25/20 11/25/20 Glycopyrrolate [Robinul Forte] 2 mg PO BID 11/25/20 11/25/20 Multivitamins, Thera [Multivitamin 1 tab PO DAILY 11/25/20 11/25/20 (formulary)] Naproxen [Naprosyn] 500 mg PO TID PRN 11/25/20 11/25/20 Nicotine 21Mg/24Hr Patch [Habitrol] 1 patch TRANSDERM DAILY PRN 11/25/20 11/25/20 Nitroglycerin 0.4 mg SL Q5M PRN 11/25/20 11/25/20 Omeprazole Magnesium [PriLOSEC] 20 mg PO DAILY 11/25/20 11/25/20 fluPHENAZine decanoate [Prolixin 50 mg IM Q14D 11/25/20 11/25/20 Decanoate] fluvoxaMINE [Luvox] 50 mg PO DAILY@1200 11/25/20 11/25/20 polyethylene glycoL 3350 [Miralax] 17 gm PO DAILY PRN 11/25/20 11/25/20 Previous Rx's Medication Instructions Recorded Atorvastatin [Lipitor] 80 mg PO HS #30 tab 07/26/20 Metoprolol Tartrate [Lopressor] 25 mg PO BID #60 tab 07/26/20 amLODIPine [Norvasc] 5 mg PO DAILY #30 tab 07/26/20 cloZAPine [Clozaril] 200 mg PO HS #60 tab 07/26/20 Allergies Allergy/AdvReac Type Severity Reaction Status Date / Time cephalexin monohydrate AdvReac Vomiting Verified 05/19/21 06:56 [From Keflex] Review of Systems ROS Other: All systems not noted in ROS Statement are negative. <Levar Ward - Last Filed: 05/19/21 07:57> ROS Other: All systems not noted in ROS Statement are negative. <Rubi Perez - Last Filed: 05/22/21 00:58> ROS Statement: Those systems with pertinent positive or pertinent negative responses have been documented in the HPI. Past Medical History Past Medical History: Hypertension, Myocardial Infarction ([place]) Additional Past Medical History / Comment(s): chronic back pain, foot drop Last Myocardial Infarction Date:: 05/10/16 History of Any Multi-Drug Resistant Organisms: MRSA Date of last positivie culture/infection: 2011 MDRO Source:: eye Past Surgical History: Heart Catheterization With Stent Additional Past Surgical History / Comment(s): back surgery Past Anesthesia/Blood Transfusion Reactions: No Reported Reaction Date of Last Stent Placement:: 0 Past Psychological History: Bipolar, Depression Smoking Status: Current every day smoker Past Alcohol Use History: None Reported Past Drug Use History: Heroin, Marijuana - Past Family History Mother Family Medical History: Hypertension Brother(s) Family Medical History: Myocardial Infarction ([place]) Additional Family Medical History / Comment(s): from [place] at age 38 <Levar Ward - Last Filed: 05/19/21 07:57> General Exam General appearance: alert, in no apparent distress Head exam: Present: atraumatic Eye exam: Present: normal appearance, PERRL, EOMI. Absent: scleral icterus, conjunctival injection ENT exam: Present: normal exam, mucous membranes moist Neck exam: Present: normal inspection, full ROM. Absent: tenderness Respiratory exam: Present: normal lung sounds bilaterally. Absent: respiratory distress, wheezes Cardiovascular Exam: Present: regular rate, normal rhythm, normal heart sounds Extremities exam: Present: tenderness (Minimal tenderness in the left distal tibia), normal capillary refill (Capillary refill less than 2 seconds, DP pulse 2+.), other (No erythema, significant swelling, drainage, signs of infection). Absent: joint swelling <Levar Ward - Last Filed: 05/19/21 07:57> Course Vital Signs 05/19/21 05/19/21 05/19/21 06:51 07:39 08:21 Temperature 97.5 F L 97.5 F L 97.5 F L Pulse Rate 66 65 65 Respiratory 18 18 18 Rate Blood Pressure 138/86 129/63 129/63 O2 Sat by Pulse 96 96 96 Oximetry Medical Decision Making <Levar Ward - Last Filed: 05/19/21 07:57> <Rubi Perez - Last Filed: 05/22/21 00:58> - Medical Decision Making pt is in no distress in the exam room. He is asking me to clean his dentures and is watching TV on his phone. physical exam of the left leg is unremarkable. There is no erythema or edema. X-ray was obtained. This does show it postsurgical change. There is 2 mm of distraction at the medial malleolus fracture site and 1.8 mm of cortical step-off along the medial cortical margin. I do not have any postoperative images to assess this. However at this time patient is stable for outpatient follow-up. Patient has crutches as home and we ll as boot. He has percocet at home. Will be discharged home to follow up with surgeon which was discussed with im. (Levar Ward) I was available for consultation in the emergency department. The history and physical exam were done by the midlevel provider. I was consulted for this patients care. I reviewed the case with the midlevel provider and based on their presentation of the patient, I agree with the assessment, medical decision making and plan of care as documented. Chart was dictated using [employer] dictation software. Attempts were made to correct any dictation errors however some typographical errors may persist. (Rubi Perez) Disposition Is patient prescribed a controlled substance at d/c from ED?: No Time of Disposition: 07:59 <Levar Ward - Last Filed: 05/19/21 07:57> <Rubi Perez - Last Filed: 05/22/21 00:58> Clinical Impression: Ankle pain, left Disposition: HOME SELF-CARE Condition: Good Instructions (If sedation given, give patient instructions): Leg Pain (ED) Additional Instructions: Continue to take your Percocet at home. Wear your boot and use your crutches. Follow-up with your orthopedic surgeon to review x-ray results. Return to the emergency room for any worsening symptoms. Referrals: [facility] [Primary Care Provider] - 1-2 days
--- NOTE | 2021-05-19 07:34 | XR ---
EXAMINATION TYPE: XR ankle complete LT DATE OF EXAM: 05/19/2021 COMPARISON: NONE HISTORY: 50-year-old male recent ORIF left ankle, reinjury and pain TECHNIQUE: 3 views FINDINGS: Lateral sideplate and multiple screw fixation of the oblique fracture distal fibula. There are 2 godinez sverse syndesmotic screws. There show cortical screws fixating the oblique fracture through the media l malleolus. There is 2 mm of distraction at this fracture site and 1.8 mm of cortical step-off along the medial cortical margin. Generalized soft tissue swelling. There is a skin staple at the calcaneu s. Old screw tracts in the mid tibial shaft partially visualized. IMPRESSION: 1. Post surgical change of bimalleolar ankle fixation as well as transsyndesmotic fixation. 2. There is 2 mm of distraction at the medial malleolus fracture site and 1.8 mm of cortical step-off along the medial cortical margin. Correlate with postoperative images to assess for stability. 3. Otherwise, no evident complication.
[2021-05-19 07:39] VITALS: BP 129/63; PULSE 65
[2021-05-19] MEDS ORDERED: oxyCODONE-APAP 5-325MG 1 EACH TAB PO STA (07:56)
== END 2021-05-19 08:21 | disposition home or self-care (01) ==
LOC: EC 06:44
DX: M25.572 Pain in left ankle and joints of left foot (principal); I10 Essential (primary) hypertension; I25.2 Old myocardial infarction; F31.9 Bipolar disorder, unspecified; F12.90 Cannabis use, unspecified, uncomplicated; F11.90 Opioid use, unspecified, uncomplicated; Z79.1 Long term (current) use of non-steroidal anti-inflammatories (NSAID); Z79.899 Other long term (current) drug therapy
CPT/HCPCS: 73610; 99284; 96372; J1885

== ENCOUNTER 2022-02-26 23:01 | Emergency (ER) | payer MEDICARE, OTHER ==
[2022-02-27 00:30] LABS: Basophils % (A) 0 %; Eosinophils # (A) 0.3 k/uL (0-0.7); Eosinophils % (A) 3 %; HCT 49.1 % (39.0-53.0); HGB 16.1 gm/dL (13.0-17.5); Lymphocytes # (A) 1.2 k/uL (1.0-4.8); Lymphocytes % (A) 15 %; MCH 32.4 pg (25.0-35.0); MCHC 32.7 g/dL (31.0-37.0); MCV 99.2 fL (80.0-100.0); Mean Platelet Volume 8.6; Monocytes # (A) 0.6 k/uL (0-1.0); Monocytes % (A) 7 %; Neutrophils # (A) 5.9 k/uL (1.3-7.7); Neutrophils % (A) 74 %; Platelet Count 133 k/uL (150-450); RBC 4.95 m/uL (4.30-5.90); RDW 14.8 % (11.5-15.5)
--- NOTE | 2022-02-27 00:45 | ED ---
Overdose HPI - General Chief Complaint: Overdose Stated Complaint: Overdose Time Seen by Provider: 02/26/22 23:07 Source: patient, EMS Mode of arrival: EMS Limitations: no limitations - History of Present Illness Initial Comments: This patient is a 51-year-old man brought to have evaluation after he was poorly responsive after taking pain medication. Patient did receive Narcan by EMS and he is able to give history. He states that he was attempting to treat chronic left leg pain. He did take extra dose of Percocet. Patient denies any suicidal ideation. Denies respiratory distress. MD Complaint: accidental overdose Onset/Timin -: hour(s) Context: Accidental Overdose: medication error - Related Data Home Medications Medication Instructions Recorded Confirmed Biotin 5 mg PO DAILY 11/25/20 11/25/20 Divalproex ER [Depakote ER] 1,000 mg PO DAILY 11/25/20 11/25/20 Glycopyrrolate [Robinul Forte] 2 mg PO BID 11/25/20 11/25/20 Multivitamins, Thera [Multivitamin 1 tab PO DAILY 11/25/20 11/25/20 (formulary)] Naproxen [Naprosyn] 500 mg PO TID PRN 11/25/20 11/25/20 Nicotine 21Mg/24Hr Patch [Habitrol] 1 patch TRANSDERM DAILY PRN 11/25/20 11/25/20 Nitroglycerin 0.4 mg SL Q5M PRN 11/25/20 11/25/20 Omeprazole Magnesium [PriLOSEC] 20 mg PO DAILY 11/25/20 11/25/20 fluPHENAZine decanoate [Prolixin 50 mg IM Q14D 11/25/20 11/25/20 Decanoate] fluvoxaMINE [Luvox] 50 mg PO DAILY@1200 11/25/20 11/25/20 polyethylene glycoL 3350 [Miralax] 17 gm PO DAILY PRN 11/25/20 11/25/20 Previous Rx's Medication Instructions Recorded Atorvastatin [Lipitor] 80 mg PO HS #30 tab 07/26/20 Metoprolol Tartrate [Lopressor] 25 mg PO BID #60 tab 07/26/20 amLODIPine [Norvasc] 5 mg PO DAILY #30 tab 07/26/20 cloZAPine [Clozaril] 200 mg PO HS #60 tab 07/26/20 Allergies Allergy/AdvReac Type Severity Reaction Status Date / Time cephalexin monohydrate AdvReac Vomiting Verified 02/26/22 23:10 [From Keflex] Review of Systems ROS Statement: Those systems with pertinent positive or pertinent negative responses have been documented in the HPI. ROS Other: All systems not noted in ROS Statement are negative. Constitutional: Denies: fever Respiratory: Denies: cough, dyspnea Cardiovascular: Denies: chest pain, palpitations, edema Gastrointestinal: Denies: abdominal pain, nausea, vomiting Genitourinary: Denies: dysuria, hematuria Musculoskeletal: Reports: arthralgia (Left ankle). Denies: back pain Skin: Denies: rash Neurological: Denies: headache Past Medical History Past Medical History: Hypertension, Myocardial Infarction ([place]) Additional Past Medical History / Comment(s): chronic back pain, foot drop Last Myocardial Infarction Date:: 05/10/16 History of Any Multi-Drug Resistant Organisms: MRSA Date of last positivie culture/infection: 2011 MDRO Source:: eye Past Surgical History: Heart Catheterization With Stent Additional Past Surgical History / Comment(s): back surgery Past Anesthesia/Blood Transfusion Reactions: No Reported Reaction Date of Last Stent Placement:: 0 Past Psychological History: Bipolar, Depression Smoking Status: Current every day smoker Past Alcohol Use History: None Reported Past Drug Use History: Heroin, Marijuana - Past Family History Mother Family Medical History: Hypertension Brother(s) Family Medical History: Myocardial Infarction ([place]) Additional Family Medical History / Comment(s): from [place] at age 38 General Exam Limitations: no limitations General appearance: alert, in no apparent distress Head exam: Present: atraumatic, normocephalic Eye exam: Present: normal appearance Neck exam: Present: normal inspection Respiratory exam: Present: normal lung sounds bilaterally. Absent: respiratory distress, wheezes, rales, rhonchi, stridor Cardiovascular Exam: Present: regular rate, normal rhythm, normal heart sounds. Absent: systolic murmur, diastolic murmur, rubs, gallop GI/Abdominal exam: Present: soft. Absent: distended, tenderness, guarding, rebound, rigid, mass Extremities exam: Present: normal inspection, normal capillary refill. Absent: pedal edema, calf tenderness Back exam: Present: normal inspection Neurological exam: Present: alert Psychiatric exam: Present: normal affect. Absent: suicidal ideation Skin exam: Present: warm, dry, intact, normal color. Absent: rash Course Vital Signs 02/26/22 02/27/22 02/27/22 23:04 01:00 03:00 Temperature 99.3 F Pulse Rate 85 80 79 Respiratory 24 20 20 Rate Blood Pressure 140/107 115/81 124/93 O2 Sat by Pulse 96 97 96 Oximetry 02/27/22 02/27/22 05:00 05:50 Temperature 98.6 F 98.6 F Pulse Rate 79 79 Respiratory 18 22 Rate Blood Pressure 121/78 124/74 O2 Sat by Pulse 96 97 Oximetry Medical Decision Making - Lab Data Result diagrams: 02/27/22 00:00 02/27/22 00:00 Lab Results 02/27/22 02/27/22 Range/Units 00:00 00:00 WBC 8.0 (3.8-10.6) k/uL RBC 4.95 (4.30-5.90) m/uL Hgb 16.1 (13.0-17.5) gm/dL Hct 49.1 (39.0-53.0) % MCV 99.2 (80.0-100.0) fL MCH 32.4 (25.0-35.0) pg MCHC 32.7 (31.0-37.0) g/dL RDW 14.8 (11.5-15.5) % Plt Count 133 L (150-450) k/uL MPV 8.6 Neutrophils % 74 % Lymphocytes % 15 % Monocytes % 7 % Eosinophils % 3 % Basophils % 0 % Neutrophils # 5.9 (1.3-7.7) k/uL Lymphocytes # 1.2 (1.0-4.8) k/uL Monocytes # 0.6 (0-1.0) k/uL Eosinophils # 0.3 (0-0.7) k/uL Basophils # 0.0 (0-0.2) k/uL Sodium 130 L (137-145) mmol/L Potassium 5.4 H (3.5-5.1) mmol/L Chloride 96 L (98-107) mmol/L Carbon Dioxide 22 (22-30) mmol/L Anion Gap 12 mmol/L BUN 6 L (9-20) mg/dL Creatinine 0.70 (0.66-1.25) mg/dL Est GFR (CKD-EPI)AfAm >90 (>60 ml/min/1.73 sqM) Est GFR (CKD-EPI)NonAf >90 (>60 ml/min/1.73 sqM) Glucose 90 (74-99) mg/dL Calcium 8.5 (8.4-10.2) mg/dL Total Bilirubin 1.3 (0.2-1.3) mg/dL AST 29 (17-59) U/L ALT 18 (4-49) U/L Alkaline Phosphatase 60 (38-126) U/L Total Protein 6.7 (6.3-8.2) g/dL Albumin 3.7 (3.5-5.0) g/dL Salicylates <1.0 mg/dL Acetaminophen <10.0 ug/mL Serum Alcohol <10 mg/dL - EKG Data -: EKG Interpreted by Ne EKG shows normal: sinus rhythm, axis (Normal), intervals (Normal), ST-T waves (Normal) Rate: normal (Rate 79 bpm) Interpretation: other (Possible old septal infarct.) Disposition Clinical Impression: Accidental drug overdose Disposition: HOME SELF-CARE Condition: Good Instructions (If sedation given, give patient instructions): Adult Overdose (ED) Is patient prescribed a controlled substance at d/c from ED?: No Referrals: [facility] [Primary Care Provider] - 1-2 days
[2022-02-27 00:48] LABS: ALT 18 U/L (4-49); AST 29 U/L (17-59); Acetaminophen <10.0 ug/mL; African American GFR (CKD) >90 (>60 ml/min/1.73 sqM); Albumin 3.7 g/dL (3.5-5.0); Alcohol <10 mg/dL; Alkaline Phosphatase 60 U/L (38-126); Anion Gap 12 mmol/L; Blood Urea Nitrogen 6 mg/dL (9-20); Calcium 8.5 mg/dL (8.4-10.2); Carbon Dioxide 22 mmol/L (22-30); Chloride 96 mmol/L (98-107); Glucose 90 mg/dL (74-99); Non-African American GFR(CKD) >90 (>60 ml/min/1.73 sqM); Salicylate <1.0 mg/dL; Sodium 130 mmol/L (137-145); Total Bilirubin 1.3 mg/dL (0.2-1.3); Total Protein 6.7 g/dL (6.3-8.2)
[2022-02-27 00:57] LABS: Potassium 5.4 mmol/L (3.5-5.1)
[2022-02-27 03:08] VITALS: PULSE 79
[2022-02-27 05:23] VITALS: TEMP 98.6
[2022-02-27 05:51] VITALS: BP 124/74; RESP 22
== END 2022-02-27 05:51 | disposition home or self-care (01) ==
LOC: EC 23:01
DX: T50.7X1A Poisoning by analeptics and opioid receptor antagonists, accidental (unintentional), initial encounter (principal); I10 Essential (primary) hypertension; I25.2 Old myocardial infarction; F31.9 Bipolar disorder, unspecified; F12.90 Cannabis use, unspecified, uncomplicated; Z88.1 Allergy status to other antibiotic agents; Z79.899 Other long term (current) drug therapy
CPT/HCPCS: 82075; 36415; 93005; 80053; 85025; 80143; 80179; 99284; G0480; 80320

== ENCOUNTER 2022-05-08 11:16 | Emergency (ER) | payer MEDICARE, OTHER ==
[2022-05-08] MEDS ORDERED: KETOROLAC 15 MG/ML 1 ML VIAL IM STA (11:29)
[2022-05-08 11:30] VITALS: RESP 18; TEMP 98.8
--- NOTE | 2022-05-08 12:05 | XR ---
EXAMINATION TYPE: XR ankle complete LT, XR foot complete LT DATE OF EXAM: 05/08/2022 COMPARISON: 04/08/2021 HISTORY: Pain TECHNIQUE: 3 views of the left ankle and foot are submitted for evaluation. FINDINGS: Left ankle: There is evidence of prior open reduction and internal fixation of the left fibula and ti barby. There is evidence of solid fusion. There is ossific density noted adjacent to the medial malleol ar tip as well as the tip of the lateral malleolus. Ossific densities are also noted involving the an terior malleolus. I cannot exclude avulsion fractures. There is moderate soft tissue swelling about t he ankle. Mild narrowing of the ankle mortise. Left foot: No evidence for acute displaced fracture or dislocation. Mild soft tissue swelling about t he dorsum of the foot. Degenerative changes. IMPRESSION: 1. As noted above I cannot exclude avulsion fractures arising from the medial malleolus, lateral mall eolus and lower anterior malleolar regions. Moderate soft tissue swelling about the ankle.
--- NOTE | 2022-05-08 13:10 | ED ---
General Adult HPI - General Chief complaint: Extremity Injury, Lower Stated complaint: L ankle pain Time Seen by Provider: 05/08/22 11:25 Source: patient, EMS, RN notes reviewed, old records reviewed Mode of arrival: EMS Limitations: no limitations - History of Present Illness Initial comments: This is a 51-year-old male who states he fell yesterday and he has injured his left ankle and this was ankle he had previous surgery. Patient states it swelled up a little bit so he wanted to come in and be evaluated. Patient denies any knee pain patient with any proximal leg pain patient denies any other injury at this time. - Related Data Home Medications Medication Instructions Recorded Confirmed Biotin 5 mg PO DAILY 11/25/20 11/25/20 Divalproex ER [Depakote ER] 1,000 mg PO DAILY 11/25/20 11/25/20 Glycopyrrolate [Robinul Forte] 2 mg PO BID 11/25/20 11/25/20 Multivitamins, Thera [Multivitamin 1 tab PO DAILY 11/25/20 11/25/20 (formulary)] Naproxen [Naprosyn] 500 mg PO TID PRN 11/25/20 11/25/20 Nicotine 21Mg/24Hr Patch [Habitrol] 1 patch TRANSDERM DAILY PRN 11/25/20 11/25/20 Nitroglycerin 0.4 mg SL Q5M PRN 11/25/20 11/25/20 Omeprazole Magnesium [PriLOSEC] 20 mg PO DAILY 11/25/20 11/25/20 fluPHENAZine decanoate [Prolixin 50 mg IM Q14D 11/25/20 11/25/20 Decanoate] fluvoxaMINE [Luvox] 50 mg PO DAILY@1200 11/25/20 11/25/20 polyethylene glycoL 3350 [Miralax] 17 gm PO DAILY PRN 11/25/20 11/25/20 Previous Rx's Medication Instructions Recorded Atorvastatin [Lipitor] 80 mg PO HS #30 tab 07/26/20 Metoprolol Tartrate [Lopressor] 25 mg PO BID #60 tab 07/26/20 amLODIPine [Norvasc] 5 mg PO DAILY #30 tab 07/26/20 cloZAPine [Clozaril] 200 mg PO HS #60 tab 07/26/20 Allergies Allergy/AdvReac Type Severity Reaction Status Date / Time cephalexin monohydrate AdvReac Vomiting Verified 02/26/22 23:10 [From Keflex] Review of Systems ROS Statement: Those systems with pertinent positive or pertinent negative responses have been documented in the HPI. ROS Other: All systems not noted in ROS Statement are negative. Past Medical History Past Medical History: Hypertension, Myocardial Infarction ([place]) Additional Past Medical History / Comment(s): chronic back pain, foot drop Last Myocardial Infarction Date:: 05/10/16 History of Any Multi-Drug Resistant Organisms: MRSA Date of last positivie culture/infection: 2011 MDRO Source:: eye Past Surgical History: Heart Catheterization With Stent Additional Past Surgical History / Comment(s): back surgery Past Anesthesia/Blood Transfusion Reactions: No Reported Reaction Date of Last Stent Placement:: 0 Past Psychological History: Bipolar, Depression Smoking Status: Current every day smoker Past Alcohol Use History: None Reported Past Drug Use History: Heroin, Marijuana - Past Family History Mother Family Medical History: Hypertension Brother(s) Family Medical History: Myocardial Infarction ([place]) Additional Family Medical History / Comment(s): from [place] at age 38 General Exam - General Exam Comments Initial Comments: GENERAL Patient is well-developed and well-nourished. Patient is in mild distress. EYES Patient's pupils are equal and round. Extraocular motion is intact SKIN Unremarkable NEURO The patient is alert and oriented 3 PYSCH Patient has normal interpersonal interactions. MUSCULOSKELETAL Left ankle and foot are mildly swollen the foot on the right is also swollen he states that is chronic. Patient has some tenderness to the lateral malleolus. Patient can put some weight on his foot but not full weight-bearing. Limitations: no limitations Course Vital Signs 05/08/22 11:24 Temperature 98.8 F Pulse Rate 109 H Respiratory 18 Rate Blood Pressure 151/102 O2 Sat by Pulse 96 Oximetry Medical Decision Making - Medical Decision Making X-rays read by me. X-ray shows no acute fracture. I went back in and talked with the patient about putting him in a splint but he did not want a splint because he states he needs to step on that foot with crutches he will be able to balance. Disposition Clinical Impression: Ankle sprain Disposition: HOME SELF-CARE Condition: Good Instructions (If sedation given, give patient instructions): Ankle Sprain (ED) Is patient prescribed a controlled substance at d/c from ED?: No Referrals: Pola Martinez DO [Doctor of Osteopathic Medicine] - 1-2 days Time of Disposition: 13:10
[2022-05-08 13:41] VITALS: BP 154/88; PULSE 98
== END 2022-05-08 13:35 | disposition home or self-care (01) ==
LOC: EC 11:16
DX: S93.402A Sprain of unspecified ligament of left ankle, initial encounter (principal); I10 Essential (primary) hypertension; I25.2 Old myocardial infarction; F31.9 Bipolar disorder, unspecified; F17.200 Nicotine dependence, unspecified, uncomplicated; F12.90 Cannabis use, unspecified, uncomplicated; Z79.891 Long term (current) use of opiate analgesic; Z79.83 Long term (current) use of bisphosphonates; Z88.1 Allergy status to other antibiotic agents; W18.30XA Fall on same level, unspecified, initial encounter
CPT/HCPCS: 73610; 73630; 99284; 96372; J1885

== ENCOUNTER → 2022-10-07 | Outpatient (CLI) | payer MEDICARE, OTHER ==
[2022-10-07 13:26] VITALS: BP 106/66; PULSE 68; RESP 18
--- NOTE | 2022-10-07 15:44 | P.CONS ---
History of Present Illness - Reason for Consult Consult date: 10/07/22 - Chief Complaint Lower back pain - History of Present Illness This is a 52-year-old gentleman with history of chronic lower back pain status post Herrera rods placement more than 10 years ago. The pain radiates down the lower extremities to the knees bilaterally. Also has pain in the left ankle status post ankle surgery. He tried multiple modalities of pain treatments including oral opioids with Percocet and methadone he also has spinal cord stimulator which has stopped working many years ago as he states. The spinal cord stimulator was placed by Dr. Moore. The patient states that methadone 40 mg a day was helping his pain however he was switched to Percocet 5 mg with loss of pain control. The patient is hesitant of getting any injections on his spine due to a history of back injection with prolonged lower extremities weakness. The pain wakes the patient up at night posteriorly pounds of his weight he is being worked up by his primary care physician for this problem. The last time he tried physical therapy was in the . He smokes half a pack of cigarettes a day and he uses marijuana occasionally he denies using any alcohol. The patient is here mostly for treatment with opioids. Review of Systems Constitutional: Denies chills, Denies fever Cardiovascular: Denies chest pain, Denies shortness of breath Respiratory: Denies cough Musculoskeletal: Reports as per HPI Neurological: Reports as per HPI Past Medical History Past Medical History: Hyperlipidemia, Hypertension, Myocardial Infarction ([place]) Additional Past Medical History / Comment(s): chronic back pain, foot drop Last Myocardial Infarction Date:: 05/10/16 History of Any Multi-Drug Resistant Organisms: MRSA Year Discovered:: 2011 MDRO Source:: eye Past Surgical History: Heart Catheterization With Stent Additional Past Surgical History / Comment(s): back surgery Past Anesthesia/Blood Transfusion Reactions: No Reported Reaction Date of Last Stent Placement:: 0 Smoking Status: Current every day smoker - Past Family History Mother Family Medical History: Hypertension Brother(s) Family Medical History: Myocardial Infarction ([place]) Additional Family Medical History / Comment(s): from [place] at age 38 Medications and Allergies Home Medications Medication Instructions Recorded Confirmed Type Atorvastatin [Lipitor] 80 mg PO HS #30 tab 07/26/20 10/07/22 Rx Metoprolol Tartrate [Lopressor] 25 mg PO BID #60 tab 07/26/20 10/07/22 Rx amLODIPine [Norvasc] 5 mg PO DAILY #30 tab 07/26/20 10/07/22 Rx cloZAPine [Clozaril] 200 mg PO HS #60 tab 07/26/20 10/07/22 Rx Biotin 5 mg PO DAILY 11/25/20 10/07/22 History Divalproex ER [Depakote ER] 1,000 mg PO DAILY 11/25/20 10/07/22 History Glycopyrrolate [Robinul Forte] 2 mg PO BID 11/25/20 10/07/22 History Multivitamins, Thera [Multivitamin 1 tab PO DAILY 11/25/20 10/07/22 History (formulary)] Naproxen [Naprosyn] 500 mg PO TID PRN 11/25/20 10/07/22 History Nicotine 21Mg/24Hr Patch [Habitrol] 1 patch TRANSDERM DAILY PRN 11/25/20 3 History Nitroglycerin 0.4 mg SL Q5M PRN 11/25/20 10/07/22 History Omeprazole Magnesium [PriLOSEC] 20 mg PO DAILY 11/25/20 10/07/22 History fluPHENAZine decanoate [Prolixin 50 mg IM Q14D 11/25/20 10/07/22 History Decanoate] fluvoxaMINE [Luvox] 50 mg PO DAILY@1200 11/25/20 10/07/22 History polyethylene glycoL 3350 [Miralax] 17 gm PO DAILY PRN 11/25/20 10/07/22 History Sulfamethox-Tmp 800-160Mg [Bactrim 1 each PO Q12HR #20 tab 08/11/22 10/07/22 Rx Ds] Allergies Allergy/AdvReac Type Severity Reaction Status Date / Time cephalexin monohydrate AdvReac Vomiting Verified 10/07/22 13:16 [From Keflex] Physical Exam Vitals: Vital Signs Pulse Resp BP Pulse Ox 10/07/22 13:18 68 18 106/66 93 L Intake and Output 10/07/22 10/07/22 10/07/22 06:59 14:59 22:59 Other: Weight 68.946 kg - Constitutional General appearance: thin - EENT Eyes: PERRLA - Integumentary Integumentary: pale - Neurologic Well-healed scar in the lumbar area from his previous surgery. Scar in the left buttock fluoroscopy the spinal cord stimulator generator. Decreased muscle strength in the lower extremities to 4 out of 5 bilaterally. 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 The only treatment that worked for the patient was methadone 40 mg a day. It is not clear exactly why this was discontinued. The patient is hesitant about getting physical therapy at this point. I think that following up with a physician who is familiar with the patient's problems would be more beneficial to the patient and that is why I'm going to refer him back to see Dr. Lora who placed his spinal cord stimulator in a few years back. I thank you for the referral.
== END ==
LOC: PNWHC3 12:40
PROVIDERS: ATTEND Anesthesiology
DX: M54.50 Low back pain, unspecified (principal); G89.29 Other chronic pain; E78.5 Hyperlipidemia, unspecified; F17.210 Nicotine dependence, cigarettes, uncomplicated; I10 Essential (primary) hypertension; I25.2 Old myocardial infarction; Z79.1 Long term (current) use of non-steroidal anti-inflammatories (NSAID); Z88.1 Allergy status to other antibiotic agents
CPT/HCPCS: 99211

== ENCOUNTER 2022-11-06 11:59 | Emergency (ER) | payer MEDICARE, OTHER ==
[2022-11-06 12:12] VITALS: RESP 16; TEMP 98
[2022-11-06] MEDS ORDERED: SODIUM CHLORIDE 0.9% 500 ML 500 ML IV STA (12:40)
--- NOTE | 2022-11-06 12:49 | ED ---
General Adult HPI - General Chief complaint: Neuro Symptoms/Deficit Stated complaint: Hand Numb Time Seen by Provider: 11/06/22 12:29 Source: patient, RN notes reviewed, old records reviewed Mode of arrival: ambulatory Limitations: no limitations - History of Present Illness Initial comments: Patient is a 52-year-old male who presents emergency Department complaining of left finger paresthesias. States he went to bed at approximately 11 PM last night. Had no symptoms on. Look at this morning with a mild headache as well as paresthesias of the left first through fourth digits. It is isolated to the digits. No other numbness sensation. No weakness. Still has sensation to touch there, however states it feels like "the fingers are asleep." Denies any weakness. Denies any head trauma. Denies any falls. Headache this morning was not the worst headache of his life. It did resolve with a small dose of acetaminophen. Waited to come be evaluated until noon today. Denies any chest pain, shortness breath, abdominal pain, nausea, vomiting. Does have history cardiac stents. Denies any pain. Recently did have surgery to remove screws l ocated in his left ankle which was successful with no complication marcus in place with a clean wound. Has no other acute complaints at this time. Presents over concern for the numbness in his fingers. - Related Data Home Medications Medication Instructions Recorded Confirmed Nitroglycerin 0.4 mg SL Q5M PRN 11/25/20 11/06/22 Albuterol Sulfate [Albuterol 2 puff PO RT-Q4H PRN 11/06/22 11/06/22 Sulfate Hfa] Famotidine [Pepcid] 20 mg PO BID PRN 11/06/22 11/06/22 Furosemide [Lasix] 20 mg PO DAILY 11/06/22 11/06/22 HYDROcodone/APAP 10-325MG [Goldsmith 1 tab PO Q4HR PRN 11/06/22 11/06/22 10-325] Linaclotide [Linzess] 145 mcg PO DAILY PRN 11/06/22 11/06/22 Tamsulosin HCl [Flomax] 0.4 mg PO DAILY 11/06/22 11/06/22 amLODIPine [Norvasc] 5 mg PO DAILY 11/06/22 11/06/22 Previous Rx's Medication Instructions Recorded Atorvastatin [Lipitor] 80 mg PO HS #30 tab 07/26/20 Metoprolol Tartrate [Lopressor] 25 mg PO BID #60 tab 07/26/20 Aspirin 81 mg PO DAILY 14 Days #14 tab 11/06/22 Allergies Allergy/AdvReac Type Severity Reaction Status Date / Time cephalexin monohydrate AdvReac Vomiting Verified 11/06/22 13:03 [From Keflex] Review of Systems ROS Statement: Those systems with pertinent positive or pertinent negative responses have been documented in the HPI. Review of Systems: CONST: Denies fever EYES: Denies blurry vision ENT: Denies nasal congestion C/V: Denies Chest pain RESP: Denies shortness of breath GI: Denies abdominal pain : Denies dysuria SKIN: Denies rash. MSK: Denies joint pain. NEURO: Denies headache ROS Other: All systems not noted in ROS Statement are negative. Past Medical History Past Medical History: Hyperlipidemia, Hypertension, Myocardial Infarction ([place]) Additional Past Medical History / Comment(s): chronic back pain, foot drop Last Myocardial Infarction Date:: 05/10/16 History of Any Multi-Drug Resistant Organisms: MRSA Date of last positivie culture/infection: 2011 MDRO Source:: eye Past Surgical History: Heart Catheterization With Stent Additional Past Surgical History / Comment(s): back surgery Past Anesthesia/Blood Transfusion Reactions: No Reported Reaction Date of Last Stent Placement:: 0 Past Psychological History: Bipolar, Depression Smoking Status: Current every day smoker Past Alcohol Use History: None Reported Past Drug Use History: Marijuana - Past Family History Mother Family Medical History: Hypertension Brother(s) Family Medical History: Myocardial Infarction ([place]) Additional Family Medical History / Comment(s): from [place] at age 38 General Exam - General Exam Comments Initial Comments: General: Appears in no acute distress. HEAD: Normal with no signs of head trauma. EYES: PERRLA, EOMI, conjunctiva normal, no discharge. Pupils are 2 mm and eq ual bilaterally. ENT: Hearing grossly intact, normal oropharynx. RESPIRATORY: Clear breath sounds bilaterally. No wheezes, rales, or rhonchi. C/V: Regular rate and rhythm. S1 and S2 auscultated, no edema, peripheral pulses 2+ and intact throughout ABD: Abd is soft, nontender, nondistended EXT: Normal range of motion, no obvious deformity SKIN: No rashes or lesions observed on exposed skin. NEURO: Alert and oriented 4. Cranial nerves II through XII are intact. No focal strength deficits. Very mild paresthesias to the left first through fourth digits, patient states it is around the entire digit. No weakness. Strength deficits. Normal range of motion of the left hand. NIH is at most 1 for these subjective paresthesias which are not full numbness. Last known well was last night at 11pm. GCS of 15. No other neurological deficits. Cerebellar function intact as evident by normal finger to nose testing and [id number] testing. Able to ambulate. Limitations: no limitations Course Vital Signs 11/06/22 11/06/22 11/06/22 12:09 12:18 12:30 Temperature 98 F Pulse Rate 78 73 74 Respiratory 16 16 Rate Blood Pressure 98/67 114/75 O2 Sat by Pulse 92 L 93 L Oximetry 11/06/22 11/06/22 11/06/22 13:00 13:30 14:00 Temperature Pulse Rate 71 80 Respiratory 16 Rate Blood Pressure 109/79 114/81 O2 Sat by Pulse Oximetry 11/06/22 11/06/22 11/06/22 14:30 15:00 15:30 Temperature Pulse Rate 64 64 68 Respiratory Rate Blood Pressure 110/80 131/84 O2 Sat by Pulse 89 L 92 L Oximetry Medical Decision Making - Medical Decision Making Was pt. sent in by a medical professional or institution (, PA, EMBROIDERY ASSISTANT, urgent care, hospital, or senior living...) When possible be specific @ -No Did you speak to anyone other than the patient for history (EMS, parent, family, police, friend...)? What history was obtained from this source @ -No Did you review nursing and triage notes (agree or disagree)? Why? @ -I reviewed and agree with nursing and triage notes Were old charts reviewed (outside hosp., previous admission, EMS record, old E KG, old radiological studies, urgent care reports/EKG's, senior living records)? Report findings @ -No old charts were reviewed Differential Diagnosis (chest pain, altered mental status, abdominal pain women, abdominal pain men, vaginal bleeding, weakness, fever, dyspnea, syncope, headache, dizziness, GI bleed, back pain, seizure, CVA, palpatations, mental hea lth, musculoskeletal)? @ -Finger paresthesias, electrolyte abnormalities, CVA, nerve impingement, this list is not all inclusive. EKG interpreted by me (3pts min.). @ -As above X-rays interpreted by me (1pt min.). @ -Chest x-ray revealed no obvious acute cardiopulmonary process. CT interpreted by me (1pt min.). @ -CT brain, C-spine shows no obvious acute intracranial process or injury. No obvious acute findings of the cervical spine. U/S interpreted by me (1pt. min.). @ -None done What testing was considered but not performed or refused? (CT, X-rays, U/S, labs)? Why? @ -None What meds were considered but not given or refused? Why? @ -None Did you discuss the management of the patient with other professionals (professionals i.e. , PA, EMBROIDERY ASSISTANT, lab, RT, psych nurse, social studies department chair, java developer with security clearance, teacher, signals officer, high risk case manager)? Give summary @ -No Was smoking cessation discussed for >3mins.? @ -No Was critical care preformed (if so, how long)? @ -No Were there social determinants of health that impacted care today? How? (Homelessness, low income, unemployed, alcoholism, drug addiction, transportation, low edu. Level, literacy, decrease access to med. care, half-way, rehab)? @ -No Was there de-escalation of care discussed even if they declined (Discuss DNR or withdrawal of care, Hospice)? DNR status @ -No What co-morbidities impacted this encounter? (DM, HTN, Smoking, COPD, CAD, Cancer, CVA, ARF, Chemo, Hep., AIDS, mental health diagnosis, sleep apnea, morbid obesity)? @ -None Was patient admitted / discharged? Hospital course, mention meds given and route, prescriptions, significant lab abnormalities, going to OR and other pertinent info. @ -Based on the patient's presentation and physical exam, I'm concerned for what appears to be very mild subjective paresthesias to the patient's left first through fourth digits of his hand. No other neuro deficits. NIH is at most 1 for this neuro deficit, however there is atypical presentation for a stroke and seems to be mild parasthesias as he still has sensation intact, very mildly different per patient. We will work the patient up as a stroke, however stroke pager will not be activated at this time. Last known well was last night and he is not a TPA candidate anyways as risks far outweigh the benefits at this point due to his very minimal deficits. Patient was in agreement with this plan. Vital signs within acceptable limits. Patient's imaging unremarkable. Patient's laboratory studies also unremarkable and within acceptable limits. Including undetectable troponin. I discussed results of the patient. Remains having isolated paresthesias of the left fingers that is unchanged. We did discuss admission versus follow-up and he was in agreement with follow-up. He will follow-up with neurology on an outpatient basis. I will provide him with follow-up information. He will also follow up with PCP. All questions answered. Strict return precautions discussed. He was given 325 milligrams of aspirin. I will provide the patient with a prescription for baby aspirin. I instructed the patient to follow up with their PCP in the next 1-3 days. I provided contact information for follow up with neuro. I explained that the patient should return to the emergency department if they experience any worsening symptoms. Strict return precautions were discussed with the patient. The patient expressed understanding of these instructions. I answered all questions that the patient had. The patient was discharged home in good condition with their prescriptions and follow up information. Undiagnosed new problem with uncertain prognosis? @ -No Drug Therapy requiring intensive monitoring for toxicity (Heparin, Nitro, In sulin, Cardizem)? @ -No Were any procedures done? @ -No Diagnosis/symptom? @ -Left finger paresthesias Acute, or Chronic, or Acute on Chronic? @ -Acute Uncomplicated (without systemic symptoms) or Complicated (systemic symptoms)? @ -Uncomplicated Side effects of treatment? @ -none Exacerbation, Progression, or Severe Exacerbation] @ -no Poses a threat to life or bodily function? @ -no - Lab Data Result diagrams: 11/06/22 13:00 11/06/22 13:00 Lab Results 11/06/22 11/06/22 11/06/22 Range/Units 13:00 13:00 13:00 WBC 6.3 (3.8-10.6) k/uL RBC 4.70 (4.30-5.90) m/uL Hgb 16.1 (13.0-17.5) gm/dL Hct 46.8 (39.0-53.0) % MCV 99.5 (80.0-100.0) fL MCH 34.3 (25.0-35.0) pg MCHC 34.5 (31.0-37.0) g/dL RDW 14.8 (11.5-15.5) % Plt Count 180 (150-450) k/uL MPV 8.3 Neutrophils % 77 % Lymphocytes % 15 % Monocytes % 6 % Eosinophils % 1 % Basophils % 0 % Neutrophils # 4.8 (1.3-7.7) k/uL Lymphocytes # 1.0 (1.0-4.8) k/uL Monocytes # 0.4 (0-1.0) k/uL Eosinophils # 0.0 (0-0.7) k/uL Basophils # 0.0 (0-0.2) k/uL Macrocytosis Slight PT 10.8 (9.0-12.0) sec INR 1.0 (<1.2) APTT 23.8 (22.0-30.0) sec Sodium 139 (137-145) mmol/L Potassium 4.0 (3.5-5.1) mmol/L Chloride 101 (98-107) mmol/L Carbon Dioxide 34 H (22-30) mmol/L Anion Gap 4 mmol/L BUN 7 L (9-20) mg/dL Creatinine 0.75 (0.66-1.25) mg/dL Est GFR (CKD-EPI)AfAm >90 (>60 ml/min/1.73 sqM) Est GFR (CKD-EPI)NonAf >90 (>60 ml/min/1.73 sqM) Glucose 108 H (74-99) mg/dL Calcium 8.7 (8.4-10.2) mg/dL Total Bilirubin 0.5 (0.2-1.3) mg/dL AST 18 (17-59) U/L ALT 17 (4-49) U/L Alkaline Phosphatase 88 (38-126) U/L Creatine Kinase 29 L (55-170) U/L Troponin I (0.000-0.034) ng/mL Total Protein 6.1 L (6.3-8.2) g/dL Albumin 3.4 L (3.5-5.0) g/dL Urine Color Urine Appearance (Clear) Urine pH (5.0-8.0) Ur Specific [place] (1.001-1.035) Urine Protein (Negative) Urine Glucose (UA) (Negative) Urine Ketones (Negative) Urine Blood (Negative) Urine Nitrite (Negative) Urine Bilirubin (Negative) Urine Urobilinogen (<2.0) mg/dL Ur Leukocyte Esterase (Negative) Urine Opiates Screen (NotDetected) Ur Oxycodone Screen (NotDetected) Urine Methadone Screen (NotDetected) Ur Propoxyphene Screen (NotDetected) Ur Barbiturates Screen (NotDetected) U Tricyclic Antidepress (NotDetected) Ur Phencyclidine Scrn (NotDetected) Ur Amphetamines Screen (NotDetected) U Methamphetamines Scrn (NotDetected) U Benzodiazepines Scrn (NotDetected) Urine Cocaine Screen (NotDetected) U Marijuana (THC) Screen (NotDetected) 11/06/22 11/06/22 11/06/22 Range/Units 13:00 13:59 13:59 WBC (3.8-10.6) k/uL RBC (4.30-5.90) m/uL Hgb (13.0-17.5) gm/dL Hct (39.0-53.0) % MCV (80.0-100.0) fL MCH (25.0-35.0) pg MCHC (31.0-37.0) g/dL RDW (11.5-15.5) % Plt Count (150-450) k/uL MPV Neutrophils % % Lymphocytes % % Monocytes % % Eosinophils % % Basophils % % Neutrophils # (1.3-7.7) k/uL Lymphocytes # (1.0-4.8) k/uL Monocytes # (0-1.0) k/uL Eosinophils # (0-0.7) k/uL Basophils # (0-0.2) k/uL Macrocytosis PT (9.0-12.0) sec INR (<1.2) APTT (22.0-30.0) sec Sodium (137-145) mmol/L Potassium (3.5-5.1) mmol/L Chloride (98-107) mmol/L Carbon Dioxide (22-30) mmol/L Anion Gap mmol/L BUN (9-20) mg/dL Creatinine (0.66-1.25) mg/dL Est GFR (CKD-EPI)AfAm (>60 ml/min/1.73 sqM) Est GFR (CKD-EPI)NonAf (>60 ml/min/1.73 sqM) Glucose (74-99) mg/dL Calcium (8.4-10.2) mg/dL Total Bilirubin (0.2-1.3) mg/dL AST (17-59) U/L ALT (4-49) U/L Alkaline Phosphatase (38-126) U/L Creatine Kinase (55-170) U/L Troponin I <0.012 (0.000-0.034) ng/mL Total Protein (6.3-8.2) g/dL Albumin (3.5-5.0) g/dL Urine Color Yellow Urine Appearance Clear (Clear) Urine pH 5.5 (5.0-8.0) Ur Specific [place] 1.020 (1.001-1.035) Urine Protein Negative (Negative) Urine Glucose (UA) Negative (Negative) Urine Ketones Negative (Negative) Urine Blood Negative (Negative) Urine Nitrite Negative (Negative) Urine Bilirubin Negative (Negative) Urine Urobilinogen 2.0 (<2.0) mg/dL Ur Leukocyte Esterase Negative (Negative) Urine Opiates Screen Detected H (NotDetected) Ur Oxycodone Screen Not Detected (NotDetected) Urine Methadone Screen Detected H (NotDetected) Ur Propoxyphene Screen Not Detected (NotDetected) Ur Barbiturates Screen Not Detected (NotDetected) U Tricyclic Antidepress Not Detected (NotDetected) Ur Phencyclidine Scrn Not Detected (NotDetected) Ur Amphetamines Screen Not Detected (NotDetected) U Methamphetamines Scrn Not Detected (NotDetected) U Benzodiazepines Scrn Not Detected (NotDetected) Urine Cocaine Screen Not Detected (NotDetected) U Marijuana (THC) Screen Not Detected (NotDetected) - EKG Data -: EKG Interpreted by Me EKG Comments: 12-lead Electrocardiogram Interpretation Note EKG was reviewed and interpreted by myself. 12-lead ECG performed at 1308 is interpreted by me as revealing normal sinus rhythm at a rate of 60 beats per minute. [place] is normal. AR interval is 161 ms, QRS duration is 94 ms, QTc is 430 ms.. There were no ST or T wave abnormalities to suggest myocardial ischemia or injury. R wave progression across the precordium was satisfactory. By my interpretation this EKG is non-diagnostic for acute ischemia. Disposition Clinical Impression: Paresthesia of finger Disposition: HOME SELF-CARE Condition: Good Instructions (If sedation given, give patient instructions): Paresthesia (ED) Prescriptions: Aspirin 81 mg PO DAILY 14 Days #14 tab Is patient prescribed a controlled substance at d/c from ED?: No Referrals: Javier Hernadez MD [Primary Care Provider] - 1-2 days Halie Crawford MD [REFERRING] - 1-2 days Time of Disposition: 14:55
--- NOTE | 2022-11-06 13:20 | CT ---
EXAMINATION TYPE: CT brain agapito wo con DATE OF EXAM: 11/06/2022 COMPARISON: 04/08/2021 HISTORY: 52-year-old male neurologic deficit, acute, stroke suspected CT DLP: 1292.2 mGycm Automated exposure control for dose reduction was used. Technique: Examination of the head was done in axial plane without intravenous contrast. Coronal and sagittal reconstructions performed. CT of the cervical spine was obtained in axial plane without intravenous injection of contrast mater ial. Coronal and sagittal reformatted images were obtained from the axial views for evaluation of f ractures, spinal alignment and canal. FINDINGS: Head: There is no evidence of acute intracranial hemorrhage, acute ischemic changes, mass, mass-effect, or extra-axial fluid collection. There is no effacement of cerebral sulci or basal subarachnoid cister ns. There is no hydrocephalus. There is no midline shift. Lazaro-white matter distinction is preserv ed. Moderate mucosal thickening right ethmoid air cells. Mild right maxillary sinus and left ethmoid air cells. Slight leftward nasal septal deviation. Mastoid air cells are well pneumatized. Orbits and magnus bes are intact. Cervical spine: No craniocervical junction abnormality, predental space widening, or prevertebral soft tissue swellin g. Mild multilevel degenerative disc. A disc osteophyte complex at C5-C6 mildly narrows the spinal canal . No acute fracture of the cervical spine. Scattered facet and uncovertebral joint arthropathy with variable mild neural foraminal narrowing upp er and mid cervical spine. Alignment is maintained. Sagittal and coronal reformatted images confirm above findings. COMBINED IMPRESSION: 1. No acute intracranial abnormality seen. 2. Mild spondylotic change in the cervical spine. No acute fracture or malalignment. 3. Mild to moderate chronic paranasal sinus disease.
[2022-11-06 13:33] LABS: Partial Thromboplastin Time 23.8 sec (22.0-30.0); Prothrombin Time 10.8 sec (9.0-12.0)
[2022-11-06 13:37] LABS: ALT 17 U/L (4-49); AST 18 U/L (17-59); African American GFR (CKD) >90 (>60 ml/min/1.73 sqM); Albumin 3.4 g/dL (3.5-5.0); Alkaline Phosphatase 88 U/L (38-126); Anion Gap 4 mmol/L; Blood Urea Nitrogen 7 mg/dL (9-20); Calcium 8.7 mg/dL (8.4-10.2); Carbon Dioxide 34 mmol/L (22-30); Chloride 101 mmol/L (98-107); Creatine Kinase 29 U/L (55-170); Glucose 108 mg/dL (74-99); Non-African American GFR(CKD) >90 (>60 ml/min/1.73 sqM); Sodium 139 mmol/L (137-145); Total Bilirubin 0.5 mg/dL (0.2-1.3); Total Protein 6.1 g/dL (6.3-8.2)
[2022-11-06 13:42] LABS: Basophils % (A) 0 %; Eosinophils % (A) 1 %; HCT 46.8 % (39.0-53.0); HGB 16.1 gm/dL (13.0-17.5); Lymphocytes % (A) 15 %; MCH 34.3 pg (25.0-35.0); MCHC 34.5 g/dL (31.0-37.0); MCV 99.5 fL (80.0-100.0); Macrocytosis Slight; Mean Platelet Volume 8.3; Monocytes # (A) 0.4 k/uL (0-1.0); Monocytes % (A) 6 %; Neutrophils # (A) 4.8 k/uL (1.3-7.7); Neutrophils % (A) 77 %; Platelet Count 180 k/uL (150-450); RDW 14.8 % (11.5-15.5); WBC 6.3 k/uL (3.8-10.6)
[2022-11-06 14:06] LABS: Appearance,Urine Clear (Clear); Bilirubin,Urine Negative (Negative); Blood,Urine Negative (Negative); Color,Urine Yellow; Glucose,Urine (UA) Negative (Negative); Ketones,Urine Negative (Negative); Leukocyte Esterase,Urine Negative (Negative); Nitrite,Urine Negative (Negative); PH, Urine 5.5 (5.0-8.0); Protein,Urine Negative (Negative)
[2022-11-06 14:20] LABS: Amphetamine Screen,Urine Not Detected (NotDetected); Benzodiazepines Screen,Urine Not Detected (NotDetected); Cocaine Screen,Urine Not Detected (NotDetected); Opiate Screen,Urine Detected (NotDetected); Phencyclidine Screen,Urine Not Detected (NotDetected); Tricyclic Antidepressant,Urine Not Detected (NotDetected); Urn Cannabinoid Scrn Not Detected (NotDetected)
[2022-11-06 14:21] LABS: Barbiturate Screen,Urine Not Detected (NotDetected); Methadone Screen, Urine Detected (NotDetected); Oxycodone Screen, Urine Not Detected (NotDetected)
--- NOTE | 2022-11-06 14:34 | XR ---
EXAMINATION TYPE: XR chest 2V DATE OF EXAM: 11/06/2022 COMPARISON: 11/25/2020 TECHNIQUE: PA and lateral views submitted. HISTORY: Pain FINDINGS: The lungs are clear and there is no pneumothorax, pleural effusion, or focal pneumonia. Heart size normal and no overt failure. Osseous structures demonstrate hypertrophic and degenerative changes of the spine. There is a metallic foreign body overlying the posterior margin of her accident and a lateral view as well as punctate metallic densities overlying the left lung apex suggestive of chronic foreign body. Stimulator leads are seen in the spinal canal. Coronary artery calcifications are noted. Subsegmenta l linear changes at the left lung base most typical of atelectasis. This is suspect mild underlying C OPD. IMPRESSION: 1. No acute process.
[2022-11-06] MEDS ORDERED: ASPIRIN 325 MG TAB PO STA (15:17)
[2022-11-06 15:36] VITALS: BP 131/84; PULSE 68
== END 2022-11-06 15:45 | disposition home or self-care (01) ==
LOC: EC 11:59
DX: R20.2 Paresthesia of skin (principal); I10 Essential (primary) hypertension; I25.2 Old myocardial infarction; F31.9 Bipolar disorder, unspecified; F17.200 Nicotine dependence, unspecified, uncomplicated; F12.90 Cannabis use, unspecified, uncomplicated; Z88.1 Allergy status to other antibiotic agents; Z79.899 Other long term (current) drug therapy
CPT/HCPCS: 36415; 70450; 71046; 72125; 80053; 80306; 81003; 82550; 84484; 85025; 85610; 85730; 93005; 99284

== ENCOUNTER 2023-02-03 15:41 | Emergency (ER) | payer MEDICARE, OTHER ==
[2023-02-03 16:14] VITALS: BP 117/78; PULSE 73; RESP 16; TEMP 97.8
--- NOTE | 2023-02-03 16:39 | XR ---
EXAMINATION TYPE: XR foot complete RT DATE OF EXAM: 02/03/2023 COMPARISON: None HISTORY: Fall, pain lateral foot TECHNIQUE: 3 view right foot FINDINGS: No acute fractures or dislocations are evident. Joint spaces are preserved. Soft tissues ap pear normal. Follow up exams can be performed 7-10 days from acute trauma for continued pain. IMPRESSION: 1. No acute osseous abnormality right foot
== END 2023-02-03 18:10 | disposition left against medical advice (07) ==
LOC: EC 15:41
DX: Z53.21 Procedure and treatment not carried out due to patient leaving prior to being seen by health care provider (principal)
CPT/HCPCS: 99499

== ENCOUNTER 2023-06-13 18:19 | Emergency (ER) | payer MEDICARE, OTHER ==
--- NOTE | 2023-06-13 18:37 | ED ---
Lower Extremity Injury HPI - General Chief Complaint: Extremity Injury, Lower Stated Complaint: left ankle/foot pain Time Seen by Provider: 06/13/23 18:35 Source: patient, EMS Mode of arrival: EMS Limitations: no limitations - History of Present Illness Initial Comments: patient is a 52-year-old male presenting to the ER via EMS with chief complaint of left foot injury. Patient states he has dropfoot and tripped over his foot. He endorses most of his pain is over his fourth and fifth metatarsal. He denies any paresthesias. Patient denies any other injuries, fevers, or chills. - Related Data Home Medications Medication Instructions Recorded Confirmed Nitroglycerin 0.4 mg SL Q5M PRN 11/25/20 06/09/23 Famotidine [Pepcid] 20 mg PO BID PRN 11/06/22 06/09/23 Linaclotide [Linzess] 145 mcg PO DAILY PRN 11/06/22 06/09/23 Tamsulosin HCl [Flomax] 0.4 mg PO DAILY 11/06/22 06/09/23 amLODIPine [Norvasc] 5 mg PO DAILY 11/06/22 06/09/23 Methadone [Dolophine] 5 mg PO Q8H 04/14/23 06/09/23 Previous Rx's Medication Instructions Recorded Atorvastatin [Lipitor] 80 mg PO HS #30 tab 07/26/20 Metoprolol Tartrate [Lopressor] 25 mg PO BID #60 tab 07/26/20 Aspirin 81 mg PO DAILY 14 Days #14 tab 11/06/22 Allergies Allergy/AdvReac Type Severity Reaction Status Date / Time cephalexin monohydrate AdvReac Vomiting Verified 06/13/23 18:31 [From Keflex] Review of Systems ROS Statement: Those systems with pertinent positive or pertinent negative responses have been documented in the HPI. ROS Other: All systems not noted in ROS Statement are negative. Past Medical History Past Medical History: Hyperlipidemia, Hypertension, Myocardial Infarction ([place]) Additional Past Medical History / Comment(s): chronic back pain, foot drop Last Myocardial Infarction Date:: 05/10/16 History of Any Multi-Drug Resistant Organisms: MRSA Date of last positivie culture/infection: 2011 MDRO Source:: eye Past Surgical History: Heart Catheterization With Stent, Orthopedic Surgery Additional Past Surgical History / Comment(s): back surgery, screws removed from left ankle Past Anesthesia/Blood Transfusion Reactions: No Reported Reaction Date of Last Stent Placement:: 0 Past Psychological History: Bipolar, Depression Smoking Status: Current every day smoker - Past Family History Mother Family Medical History: Hypertension Brother(s) Family Medical History: Myocardial Infarction ([place]) Additional Family Medical History / Comment(s): from [place] at age 38 General Exam Limitations: no limitations General appearance: alert, in no apparent distress Respiratory exam: Present: normal lung sounds bilaterally. Absent: respiratory distress, wheezes, rales, rhonchi, stridor Cardiovascular Exam: Present: regular rate, normal rhythm, normal heart sounds. Absent: systolic murmur, diastolic murmur, rubs, gallop, clicks Extremities exam: Present: other (Edema and tenderness to left foot tenderness is mainly over fourth and fifth metatarsals. 2+ left dorsalis pedis pulse. Sensation intact. ROM is limited due to pain.) Neurological exam: Present: alert, oriented X3, CN II-XII intact Psychiatric exam: Present: normal affect, normal mood Course Vital Signs 06/13/23 18:25 Temperature 98.2 F Pulse Rate 98 Respiratory 20 Rate Blood Pressure 110/69 O2 Sat by Pulse 90 L Oximetry Procedures - Orthopedic Splinting/Casting Injury #1 Side: left Lower Extremity Injury Location: ankle Lower Extremity Immobilizer: posterior splint Medical Decision Making - Medical Decision Making Was pt. sent in by a medical professional or institution (JODI Gmoez, DIRECTOR OF CORPORATE REAL ESTATE, urgent care, hospital, or [facility]...) When possible be specific @ -No Did you speak to anyone other than the patient for history (EMS, parent, family, police, friend...)? What history was obtained from this source @ -No Did you review nursing and triage notes (agree or disagree)? Why? @ -I reviewed and agree with nursing and triage notes Were old charts reviewed (outside hosp., previous admission, EMS record, old EKG, old radiological studies, urgent care reports/EKG's, [facility] records)? Report findings @ -No old charts were reviewed Differential Diagnosis (chest pain, altered mental status, abdominal pain women, abdominal pain men, vaginal bleeding, weakness, fever, dyspnea, syncope, headache, dizziness, GI bleed, back pain, seizure, CVA, palpatations, mental health, musculoskeletal)? @ -Differential Musculoskeletal: Muscular strain, contusion, ligament sprain, fracture, arthritis, septic arthritis, bursitis, cellulitis, muscle spasm, nerve compression, DVT, arterial occlusion, herpes zoster, electrolyte abnormality, tumor.... This is not meant to be in all inclusive list EKG interpreted by me (3pts min.). @ -None X-rays interpreted by me (1pt min.). @ -X-ray of left ankle shows no acute fractures or dislocations. There is moderate to severe posttraumatic osteoarthritic changes noted. Left foot x-ray shows marked osteopenia which is limiting evaluation there is some irregularity in step off along the dorsal aspect of the tarsal metatarsal joints on the lateral view. There is also bony irregularity along the posterior superior aspect of the calcaneus with a density extending along the body. CT interpreted by me (1pt min.). @ -None done U/S interpreted by me (1pt. min.). @ -None done What testing was considered but not performed or refused? (CT, X-rays, U/S, labs)? Why? @ -None What meds were considered but not given or refused? Why? @ -None Did you discuss the management of the patient with other professionals (professionals i.e. , PA, DIRECTOR OF CORPORATE REAL ESTATE, lab, RT, psych nurse, social sciences department chair, immigration lawyer, teacher, contracts officer, pillowcase maker)? Give summary @ -No Was smoking cessation discussed for >3mins.? @ -No Was critical care preformed (if so, how long)? @ -No Were there social determinants of health that impacted care today? How? (Homelessness, low income, unemployed, alcoholism, drug addiction, transportation, low edu. Level, literacy, decrease access to med. care, care home, rehab)? @ -No Was there de-escalation of care discussed even if they declined (Discuss DNR or withdrawal of care, Hospice)? DNR status @ -No What co-morbidities impacted this encounter? (DM, HTN, Smoking, COPD, CAD, Cancer, CVA, ARF, Chemo, Hep., AIDS, mental health diagnosis, sleep apnea, morbid obesity)? @ -None Was patient admitted / discharged? Hospital course, mention meds given and route, prescriptions, significant lab abnormalities, going to OR and other pertinent info. @ -[Discharged. Patient is a 52-year-old male presented ER via EMS with a chief complaint of left foot injury. Upon examination, patient's vitals were stable. Physical examination of left ankle and foot were significant for tenderness along the fourth and fifth metatarsals. Patient was neurovascularly intact. X-ray of left ankle shows no acute fractures or dislocations. There is moderate to severe posttraumatic osteoarthritic changes noted. Left foot x-ray shows marked osteopenia which is limiting evaluation there is some irregularity in step off along the dorsal aspect of the tarsal metatarsal joints on the lateral view. There is also bony irregularity along the posterior superior aspect of the calcaneus with a density extending along the body. Patient received IM Toradol for pain control in the ER. Patient was placed in a posterior splint. Patient will be discharged with follow-up to orthopedics. Return parameters were discussed. I advised patient to use [id number] Tylenol and Motrin for charts in stable condition. Patient expressed understanding and agreement with care plan. Undiagnosed new problem with uncertain prognosis? @ -No Drug Therapy requiring intensive monitoring for toxicity (Heparin, Nitro, Insulin, Cardizem)? @ -No Were any procedures done? @ -Yes Diagnosis/symptom? @ -Calcaneus fracture Acute, or Chronic, or Acute on Chronic? @ -Acute Uncomplicated (without systemic symptoms) or Complicated (systemic symptoms)? @ -Uncomplicated Side effects of treatment? @ -No Exacerbation, Progression, or Severe Exacerbation? @ -No Poses a threat to life or bodily function? How? (Chest pain, [place], [place], pneumonia, PE, COPD, DKA, ARF, appy, cholecystitis, CVA, Diverticulitis, Homicidal, Suicidal, threat to staff... and all critical care pts) @ -No Disposition Clinical Impression: Calcaneus fracture Disposition: HOME SELF-CARE Condition: Stable Additional Instructions: Please return to the Emergency Department if symptoms worsen or any other concerns. Is patient prescribed a controlled substance at d/c from ED?: No Referrals: Manolo Harris DO [Primary Care Provider] - 1-2 days Cristi Souza MD [STAFF PHYSICIAN] - 1-2 days Time of Disposition: 21:52
[2023-06-13] MEDS ORDERED: KETOROLAC 15 MG/ML 1 ML VIAL IM STA (19:21)
--- NOTE | 2023-06-13 21:21 | XR ---
EXAMINATION TYPE: XR ankle complete 3 views LT, XR foot complete 3 views LT DATE OF EXAM: 06/13/2023 Comparison: 05/08/2022 Clinical History: 52-year-old male pain after fall, injury Findings: Ankle: Postsurgical change after previous fixation hardware removal. Old screw tracts are noted. There is mo derate to severe degenerative change at the tibiotalar joint on a posttraumatic basis, progressed fro m 05/08/2022. Ankle mortise is otherwise congruent with preservation of the distal tibiofibular overla p. Foot: Osteopenia. Mild degenerative change first MTP joint. Irregularity along the posterior superior margin of the calcaneus with linear density extending along the body of the calcaneus. Possible previous postsurgical change or post traumatic deformity. An irregularity along the dorsal aspect of the TMT joints on the lateral view. Unable to exclude a saez btle fracture at the dorsal to the joints. Impression: Ankle: 1. Moderate to severe posttraumatic OA with evidence of previous bimalleolar/transsyndesmotic fixatio n hardware removal. 2. No definite acute fracture or dislocation. Foot: 3. Marked osteopenia limiting the evaluation. There is some irregularity and step-off along the dorsa l aspect of the TMT joints on the lateral view. Unclear if this is on a degenerative or chronic basis or if it reflects a small acute fracture. The former is somewhat favored given the lack of overlying soft tissue swelling. Further clinical correlation recommended. 4. Some bony irregularity along the posterior-superior aspect of the calcaneus with linear density ex tending from here and along the body of the calcaneus. Unclear if this is postsurgical or posttraumat ic deformity. Somewhat more pronounced than the 05/08/2022 exam. Follow-up can be considered.
[2023-06-13 22:51] VITALS: BP 126/87; PULSE 79; RESP 18; TEMP 98
== END 2023-06-13 22:38 | disposition home or self-care (01) ==
LOC: EC 18:19
DX: S92.002A Unspecified fracture of left calcaneus, initial encounter for closed fracture (principal); E78.5 Hyperlipidemia, unspecified; I10 Essential (primary) hypertension; I25.2 Old myocardial infarction; Z79.899 Other long term (current) drug therapy; Z88.1 Allergy status to other antibiotic agents; W18.40XA Slipping, tripping and stumbling without falling, unspecified, initial encounter
CPT/HCPCS: 73610; 73630; 29515; 99284; 96372; J1885

== ENCOUNTER → 2023-12-06 | Outpatient (CLI) | payer MEDICARE, OTHER ==
--- NOTE | 2023-12-06 14:12 | CT ---
EXAMINATION TYPE: CT lumbar spine wo/w con CT DLP: 1906 mGycm, Automated exposure control for dose reduction was used. DATE OF EXAM: 12/06/2023 1:11 PM COMPARISON: CT lumbar spine 09/25/2020. CLINICAL INDICATION:Male, 53 years old with history of M47.816 spondylosis; PHH, spondylosis. M 54.5 lumbago. TECHNIQUE: Multiple axial images were obtained from the midportion of T11 through the sacroiliac america nts. Soft tissue and bone windows in coronal and sagittal planes were obtained and reviewed. 3-D ref ormats of the bones were created on a separate workstation and submitted for review. Contrast used: mL of Isovue 300 with IV Contrast, (None, if empty). Oral contrast used: (None, if empty). FINDINGS: L1-L2: Normal disc space height. No disc herniation protrusion or central stenosis. No facet joint ar thropathy. No evidence for foraminal encroachment. L2-L3: There is vertebral plasty change noted with extruded methylmethacrylate into the L2-3 disc spa ce. No evidence for progressive loss of height relative to the prior examination which was prevertebr al plasty. No evidence for central stenosis or disc herniation. L3-L4: Vacuum disc noted. Postoperative changes of fusion. Pedicular screws are in place. Alignment is stable relative to the prior study. Streak artifact limits evaluation. L4-L5: Normal-appearing disc space. Postoperative changes of fusion. Pedicular screws streak artifact limits evaluation. No evidence for disc herniation or central stenosis. In place. L5-S1: There is evidence of fusion at this level. Pedicular screws are in place. Extensive streak art ifact limits evaluation. Stable alignment. IMPRESSION: 1. Stable changes of the lumbar fusion with pedicular screws noted extending from L4 through L5 S1. L imited evaluation given streak artifact. Stable alignment. 2. Stable exam compared to prior 09/25/2020. 3. No new hardware complication. Extruded methylmethacrylate into the L2-3 disc, the same as before . 4. Incidental note of large (4.8 cm right and 3.3 cm left) bilateral common iliac artery aneurysms. .
== END | disposition home or self-care (01) ==
LOC: RADCTMAIN 12:29
PROVIDERS: ATTEND Psychiatry & Neurology Neurology
DX: M47.816 Spondylosis without myelopathy or radiculopathy, lumbar region (principal); M51.26 Other intervertebral disc displacement, lumbar region; I72.3 Aneurysm of iliac artery
CPT/HCPCS: 72133; Q9967

== ENCOUNTER → 2024-01-27 | Outpatient (CLI) | payer MEDICARE, OTHER ==
--- NOTE | 2024-01-27 14:35 | CT ---
EXAMINATION TYPE: CT angio abdomen pelvis CT DLP: 2346 mGycm, Automated exposure control for dose reduction was used. DATE OF EXAM: 01/27/2024 12:58 PM COMPARISON: CT lumbar spine 12/22/2022, CT abdomen and pelvis 08/18/2022, CTA abdominal aorta with runo ff 01/21/2020. . CLINICAL INDICATION:Male, 53 years old with history of Z01.818 ENCOUNTER FOR OTHER PREPROCEDURAL EXAM INAT; F/U on abdominal aorta aneurysm TECHNIQUE: Multiple thin slice sub-millimeter images were obtained through the abdomen and pelvis bef ore and after administration of contrast. Patient was given Isovue 370, 100 cc intravenously. 3-D r econstructed images and maximum intensity projection images were obtained of the abdominal aorta and its branches. FINDINGS: CTA Abdomen and pelvis: Stable size of distal abdominal aortic aneurysm at the bifurcation measuring 3.9 x 3.1 cm. No evidence of intramural hematoma or dissection identified. Stable aneurysmal dilatati on of the left common iliac artery measuring up to 3.3 cm and of the right common iliac artery measur ing up to 4.6 cm. There is mural thrombus identified within both aneurysms. There is moderate stenosi s identified at the origin of the right common iliac artery just before the aneurysm. Additional thro mbosed stable saccular aneurysm involving the left external iliac artery measuring up to 1.6 cm. Keily lar fusiform aneurysmal dilatation of the distal STONE UNLOADER up to 1.5 cm just before the bifurcation. Modera te atherosclerotic plaquing is identified within the abdominal aorta. The origins of the superior me senteric artery, renal arteries, inferior mesenteric artery, and celiac axis are patent. Single right renal artery with 2 left renal arteries patent The iliac vessels are normal in morphology. Atherosc lerotic plaquing with some mural thrombus formation is identified in the common iliac arteries. VISCERA: The liver, spleen, adrenal glands, kidneys, pancreas, and gallbladder are not optimally enha nced due the arterial phase utilized. LIVER: Unremarkable GALLBLADDER AND BILE DUCTS: Unremarkable. PANCREAS: Unremarkable. SPLEEN: Unremarkable. ADRENAL GLANDS: Unremarkable. KIDNEYS AND URETERS: No evidence of hydronephrosis or renal calculus. The kidneys enhance symmetrical ly. PELVIS BLADDER: Unremarkable REPRODUCTIVE: Unremarkable. ABDOMEN & PELVIS STOMACH AND BOWEL: Stomach and duodenum are unremarkable. No focal bowel wall thickening or surround ing inflammatory changes. No evidence of bowel obstruction. PERITONEUM: No evidence of pneumoperitoneum or free fluid. MUSCULOSKELETAL: No acute osseous abnormalities. Postsurgical changes of the lumbosacral spine with b ilateral pedicular screws and rods involving L4-S1 vertebral augmentation changes of the L2 vertebral body. L2 bilateral pars defects identified. No significant spondylolisthesis. LYMPH NODES: No gross evidence for lymphadenopathy. SOFT TISSUE/ABDOMINAL WALL: Left back spinal stimulator device with 2 leads entering the spinal canal at T12-L1 extending superiorly with distal tip of the lead terminating at T7. Redemonstration of mul tiple calcified and noncalcified nodules within the bilateral gluteal soft tissues with some demonstr ating hyperattenuating appearance on the noncontrast imaging. Most likely representing injection gran ulomas. Postsurgical changes in the left inguinal region. LOWER CHEST: Bibasilar subsegmental atelectasis. Severe coronary arterial calcifications. 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 No evidence for intramural hem atoma or dissection. Similar stenosis of the right common iliac artery just before the aneurysm.
--- NOTE | 2024-01-27 17:23 | CA ---
Transthoracic Echo Report Name: Syd Zavala Age: 53 Gender: M : 1970 Exam Date: 01/27/2024 14:29 Exam Location: [facility] Ht (in): 66 Wt (lb): 208 Ordering Physician: Anny Redd MD Attending/Referring Phys: Flavia Moore MD Editing Intern Nita Jean Baptiste RDCS Procedure CPT: Indications: Z01.818 ENCOUNTER FOR OTHER PREPROCEDURAL EXAMINAT Cardiac Hx: Technical Quality: Fair Contrast 1: Total Dose (mL): Contrast 2: Total Dose (mL): MEASUREMENTS (Male / Female) Normal Values 2D ECHO LV Diastolic Diameter PLAX 4.2 cm 4.2 - 5.9 / 3.9 - 5.3 cm LV Systolic Diameter PLAX 3.0 cm IVS Diastolic Thickness 0.9 cm 0.6 - 1.0 / 0.6 - 0.9 cm LVPW Diastolic Thickness 0.9 cm 0.6 - 1.0 / 0.6 - 0.9 cm LV Relative Wall Thickness 0.4 RV Internal Dim ED PLAX 2.0 cm LA Systolic Diameter LX 4.4 cm 3.0 - 4.0 / 2.7 - 3.8 cm LV Diastolic Volume MOD BP 52.3 cm??? 67 - 155 / 56 - 104 cm??? LV Systolic Volume MOD BP 21.6 cm??? 22 - 58 / 19 - 49 cm??? LV Ejection Fraction MOD BP 58.6 % >= 55 % LV Cardiac Index MOD BP 1264.1 cm???/min???m??? LV Diastolic Volume MOD 4C 64.0 cm??? LV Systolic Volume MOD 4C 20.6 cm??? LV Ejection Fraction MOD 4C 67.8 % LV Cardiac Index MOD 4C 1793.5 cm???/min???m??? LV Diastolic Length 4C 7.1 cm LV Systolic Length 4C 5.7 cm LV Diastolic Volume MOD 2C 42.3 cm??? LV Systolic Volume MOD 2C 21.9 cm??? LV Ejection Fraction MOD 2C 48.3 % LV Cardiac Index MOD 2C 844.9 cm???/min???m??? LV Diastolic Length 2C 7.2 cm LV Systolic Length 2C 6.0 cm M-MODE Aortic Root Diameter MM 3.5 cm LA Systolic Diameter MM 3.8 cm LA Ao Ratio MM 1.1 AV Cusp Separation MM 2.5 cm DOPPLER Mitral E Point Velocity 50.7 cm/s Mitral A Point Velocity 65.8 cm/s Mitral E to A Ratio 0.8 MV Deceleration Time 270.8 ms MV E' Velocity 4.9 cm/s Mitral E to MV E' Ratio 10.4 FINDINGS Left Ventricle Left ventricular ejection fraction is estimated at 60-65 %. No obvious regional wall motion abnormalities. Left ventricular cavity size normal. Left ventricular wall thickness normal. Right Ventricle Normal right ventricular size and function. Right ventricular systolic pressure within normal limits. Right Atrium Normal right atrial size. Left Atrium Mildly increased left atrial diameter. Mitral Valve Structurally normal mitral valve. Trace mitral regurgitation. No mitral stenosis. Aortic Valve Trileaflet aortic valve. No aortic valve stenosis or regurgitation. Tricuspid Valve Structurally normal tricuspid valve. Trace tricuspid regurgitation. No tricuspid stenosis. Pulmonic Valve Structurally normal pulmonic valve. Trace pulmonic regurgitation. No pulmonic stenosis. Pericardium No pericardial or pleural effusion. Aorta Aorta at upper limits of normal. CONCLUSIONS Normal LV function Previewed by: Dr. Antonio Shah MD (Electronically Signed) Final Date: 27 January 2024 17:22
== END | disposition home or self-care (01) ==
LOC: RADCTMAIN 12:05 → EEVIPCON 13:15
PROVIDERS: ATTEND Surgery
DX: Z01.818 Encounter for other preprocedural examination (principal); I71.40 Abdominal aortic aneurysm, without rupture, unspecified; I70.0 Atherosclerosis of aorta
CPT/HCPCS: 93306; 74174; Q9967

== ENCOUNTER → 2024-05-01 | Outpatient (CLI) | payer MEDICARE, OTHER ==
--- NOTE | 2024-05-01 19:44 | CT ---
EXAMINATION TYPE: CT lower extremity LT wo con DATE OF EXAM: 05/01/2024 3:50 PM COMPARISON: 06/13/2023. CLINICAL INDICATION: Male, 53 years old with history of M19.072 L ANKLE AND FT PRIMARY OSTEOARTHRITIS ; PHH, Patient had compound fx of left ankle and was operated on, patient requested screws be taken o ut too early. TECHNIQUE: Axial images were obtained of the CT lower extremity LT wo con, Additional coronal and sag ittal reformatted images and soft tissue and bone window were obtained for review. 3-D reconstruction was created on a separate workstation. Contrast used: mL of , (None if empty) Oral contrast used: (None if empty) CT DLP: 342.2 mGycm, Automated exposure control for dose reduction was used. FINDINGS: Posttraumatic changes to the distal lower extremity with severe degeneration with joint spa ce narrowing and deformity to the cartilage and subchondral space. There is [id number] articulation of the ankle. There is diffuse osseous demineralization and evidence of prior hardware removal. No e vidence for soft tissue swelling. There is moderate multifocal degeneration with joint space narrowin g osteophyte formation of the other joints. IMPRESSION: 1. Evidence of prior fixation hardware status post removal. Diffuse osseous demineralization likely diffuse osteopenia. 2. No evidence for fracture. 3. Severe degeneration changes of the ankle joint likely secondary to prior trauma. Moderate multifocal osteoporosis of the remainder of the joints of the foot. [facility], , 05/01/2024 7:42 PM
== END | disposition home or self-care (01) ==
LOC: RADCTMAIN 15:14
PROVIDERS: ATTEND Podiatrist

== ENCOUNTER → 2024-05-05 | Outpatient (CLI) | payer MEDICARE, OTHER | END | disposition home or self-care (01) | LOC: LABPAT 14:04 | PROVIDERS: ATTEND Surgery | DX: Z53.9 Procedure and treatment not carried out, unspecified reason (principal) ==

== ENCOUNTER → 2024-05-06 | Outpatient (CLI) | payer MEDICARE, OTHER ==
[2024-05-06 23:41] LABS: Basophils # (A) 0.06 X 10*3/uL (0.00-0.10); Basophils % (A) 0.9 %; Eosinophils # (A) 0.01 X 10*3/uL (0.04-0.35); Eosinophils % (A) 0.2 %; HCT 50.9 % (39.6-50.0); HGB 17.3 g/dL (13.0-17.0); Lymphocytes # (A) 0.68 X 10*3/uL (0.90-5.00); Lymphocytes % (A) 10.5 %; MCH 30.4 pg (27.0-32.0); MCV 89.3 FL (80.0-97.0); Mean Platelet Volume 10.4 FL (9.5-12.2); Monocytes # (A) 0.61 X 10*3/uL (0.20-1.00); Monocytes % (A) 9.4 %; NRBC Per 100 WBC 0 X 10*3/uL (0.00-0.01); Neutrophils # (A) 5.08 X 10*3/uL (1.80-7.70); Neutrophils % (A) 78.5 %; Platelet Count 221 X 10*3/uL (140-440); RDW 18.4 % (11.5-14.5); WBC 6.47 X 10*3/uL (4.50-10.00)
[2024-05-07 07:57] LABS: ALT 10 U/L (10-49); AST 15 U/L (14-35); Albumin 3.4 g/dL (3.8-4.9); Alkaline Phosphatase 107 U/L (41-126); Blood Urea Nitrogen 6.3 mg/dL (9.0-27.0); Calcium 8.9 mg/dL (8.7-10.3); Carbon Dioxide 25.8 mmol/L (21.6-31.8); Chloride 92 mmol/L (96-109); Globulin 3.1 g/dL (1.6-3.3); Glucose 97 mg/dL (70-110); Potassium 5.1 mmol/L (3.5-5.5); Sodium 130 mmol/L (135-145); Total Bilirubin 0.6 mg/dL (0.3-1.2); Total Protein 6.5 g/dL (6.2-8.2)
== END | disposition home or self-care (01) ==
LOC: LABWHC1 10:12
PROVIDERS: ATTEND Surgery
DX: Z01.818 Encounter for other preprocedural examination (principal); I72.3 Aneurysm of iliac artery
CPT/HCPCS: 36415; 80053; 85025

== ENCOUNTER → 2024-06-30 | Outpatient (CLI) | payer MEDICARE, OTHER ==
[2024-07-01 01:39] LABS: HGB 15.8 g/dL (13.0-17.0); MCH 29.5 pg (27.0-32.0); MCHC 33.6 g/dL (32.0-37.0); MCV 87.7 FL (80.0-97.0); Mean Platelet Volume 10.2 FL (9.5-12.2); NRBC Per 100 WBC 0 X 10*3/uL (0.00-0.01); Platelet Count 209 X 10*3/uL (140-440); RBC 5.36 X 10*6/uL (4.40-5.60); RDW 19.7 % (11.5-14.5); WBC 5.95 X 10*3/uL (4.50-10.00)
== END | disposition home or self-care (01) ==
LOC: LABWHC1 15:58
PROVIDERS: ATTEND Family Medicine
DX: D75.1 Secondary polycythemia (principal)
CPT/HCPCS: 36415; 85027

== ENCOUNTER → 2025-01-04 | Outpatient (CLI) | payer MEDICARE, OTHER ==
--- NOTE | 2025-01-04 16:01 | US ---
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 There is no discrete abscess. [facility], , 01/04/2025 3:59 PM
== END | disposition home or self-care (01) ==
LOC: RADUSWWP 13:33
PROVIDERS: ATTEND Thoracic Surgery (Cardiothoracic Vascular Surgery)
DX: L02.214 Cutaneous abscess of groin (principal)